=== PATIENT | male | born 1960 ===

== ENCOUNTER 2016-05-31 15:13 | Emergency (ER) | payer SELFPAY ==
[2016-05-31 15:13] VITALS: BMI 32.4
[2016-05-31 15:30] VITALS: RESP 20; TEMP 98.6; O2SAT 99
[2016-05-31 17:07] LABS: BASO # 0.1 K/uL (0.0-0.2); BASO % 0.5 % (0.0-2.0); EOS % 0.5 % (0.0-4.0); LYMPH # 3.2 K/uL (1.0-4.3); LYMPH % 35.1 % (20.0-40.0); MEAN CORPUSCULAR HEMOGLOBIN 37.4 pg (27.0-31.0); MEAN CORPUSCULAR HGB CONC 32.8 g/dL (33.0-37.0); MEAN PLATELET VOLUME 8.1 fL (7.2-11.7); MONO # 0.6 K/uL (0.0-0.8); MONO % 6.6 % (0.0-10.0); RED CELL DISTRIBUTION WIDTH 14.6 % (11.5-14.5); WHITE BLOOD COUNT 9.3 K/uL (4.8-10.8)
[2016-05-31 17:19] LABS: CHLORIDE 95 mmol/L (98-107); POTASSIUM 4.5 mmol/L (3.6-5.2); SODIUM 139 mmol/L (132-148)
[2016-05-31 17:22] LABS: BLOOD UREA NITROGEN 19 mg/dL (9-20); CARBON DIOXIDE 26 mmol/L (22-30); GFR AFRICAN-AMERICAN > 60; GLUCOSE,RANDOM 92 mg/dL (75-110)
[2016-05-31 17:22] LABS: VENOUS BLOOD GAS BASE EXCESS 0.9 mmol/L (0.0-2.0); VENOUS BLOOD GAS PCO2 51 mmHg (40-60); VENOUS BLOOD PH 7.34 (7.32-7.43)
[2016-05-31 17:23] LABS: CALCIUM 9.3 mg/dl (8.6-10.4)
--- NOTE | 2016-05-31 17:55 | C.PDOC ---
History Of Present Illness 55 y/o male presents to the ED with complains of erythema, warmth and swelling to right 5th digit to foot. Pt has surgical procedure 1 month ago with Surendra pt called office and was told to go to ED for evaluation. Pt has not taken any pain medications or abx. Denies nausea, vomiting, fever, chills, weakness, numbness or any other complaints. PMD Dr Roman, pmhx HIV, compliant with medications, viral load undetectable. Time Seen by Provider: 05/31/16 15:50 Chief Complaint (Nursing): Lower Extremity Problem/Injury History Per: Patient History/Exam Limitations: no limitations Onset/Duration Of Symptoms: Days Current Symptoms Are (Timing): Still Present Severity: Mild Recent travel outside of the [place]: No Past Medical History Reviewed: Historical Data, Nursing Documentation, Vital Signs Vital Signs: Last Vital Signs Temp 98.6 F 05/31/16 15:27 Pulse 68 05/31/16 15:27 Resp 20 05/31/16 15:27 BP 135/89 05/31/16 15:27 Pulse Ox 99 05/31/16 17:59 - Medical History PMH: Arthritis, HIV, HTN, Hypercholesterolemia, Hyperthyroidism, Seizures Family History: States: Unknown Family Hx - Social History Hx Tobacco Use: No Hx Alcohol Use: No Hx Substance Use: No - Immunization History Hx Tetanus Toxoid Vaccination: No Hx Influenza Vaccination: No Hx Pneumococcal Vaccination: No Review Of Systems Except As Marked, All Systems Reviewed And Found Negative. Constitutional: Negative for: Fever, Chills Gastrointestinal: Negative for: Diarrhea Musculoskeletal: Positive for: Other (swelling, warmth, erythema to right 5th digit toe) Neurological: Negative for: Weakness, Numbness Physical Exam - Physical Exam Appears: Non-toxic, No Acute Distress Skin: Warm, Dry, No Rash Head: Atraumatic, Normacephalic Cardiovascular: Rhythm Regular, No Murmur Respiratory: Normal Breath Sounds, No Rales, No Rhonchi, No Wheezing Gastrointestinal/Abdominal: Soft Extremity: Normal ROM, Other (right 5th toe erythematous, swollen; no warmth, no streaking) Pulses: Right Dorsalis Pedis: Normal Neurological/Psych: Oriented x3, Normal Motor, Normal Sensation ED Course And Treatment - Laboratory Results Result Diagrams: 05/31/16 17:04 05/31/16 17:04 O2 Sat by Pulse Oximetry: 99 Progress Note: Pus expressed from small wound adjacent to surgical scar, sent culture to lab. Dicussed case with Dr Roman, pt will follow up with him in 2- 3 days. Discharged on abx. Disposition - Disposition Referrals: Stanislav Roman MD [Staff Provider] - Esthela Agosto DPM [Staff Provider] - Disposition: HOME/ ROUTINE Disposition Time: 18:10 Condition: STABLE Prescriptions: Clindamycin [Cleocin] 300 mg PO TID #21 cap Naproxen [Naprosyn Tab] 375 mg PO BID PRN #15 tab PRN Reason: pain Lactobacillus Combination No.4 [Probiotic] 1 each PO DAILY #7 capsule Instructions: Abscess (ED), Cellulitis (ED) Print Language: QATARI - POA Present On Arrival: None - Clinical Impression Clinical Impression: Abscess, toe, Cellulitis of toe, right - Scribe Statement The provider has reviewed the documentation as recorded by the Katherine Scott Provider Attestation: All medical record entries made by the Katherine were at my direction and personally dictated by me. I have reviewed the chart and agree that the record accurately reflects my personal performance of the history, physical exam, medical decision making, and the department course for this patient. I have also personally directed, reviewed, and agree with the discharge instructions and disposition.
[2016-05-31 18:35] VITALS: BP 130/70; PULSE 74
--- NOTE | 2016-05-31 18:48 | RAD ---
PROCEDURE: Radiographs of the right 5th digit HISTORY: infection, r/o gas vs periosteal elevation COMPARISON: 02/29/2016 TECHNIQUE: AP, lateral and oblique views were obtained. FINDINGS: Bone alignment is normal. There is no evidence of erosion or bone destruction. There is a speck of periarticular calcification lateral to the middle phalanx. There is soft tissue swelling of the 5th digit. There is no evidence of soft tissue emphysema. IMPRESSION: No radiographic evidence for osteomyelitis. Soft tissue swelling may represent cellulitis. No evidence of soft tissue emphysema. If there is a persistent clinical concern, an MRI may be performed for further evaluation.
== END 2016-05-31 18:34 | disposition home or self-care (01) ==
LOC: C.ER 15:13
DX: L02.611 Cutaneous abscess of right foot (principal); L03.031 Cellulitis of right toe; B95.61 Methicillin susceptible Staphylococcus aureus infection as the cause of diseases classified elsewhere

== ENCOUNTER 2016-06-25 08:48 | Emergency (ER) | payer OTHER ==
[2016-06-25 08:54] VITALS: BP 129/84; PULSE 84; RESP 18; TEMP 98.1; O2SAT 96; BMI 33.5
--- NOTE | 2016-06-25 09:12 | C.PDOC ---
History Of Present Illness 56 year old patient, with a past medical history of arthritis, hypertension, HIV , hypercholesterolemia, hyperthyroidism, and seizures, presents to the ED complaining of left 5th toe pain for the past 5 days. Patient states he visited his compensation intern, Dr. Agosto and was given Meloxicam for the pain, but he feels minimal relief. Today, patient notes more redness and swelling to the toe. When he pushed on it, pus drained out. Patient has a prior history of toe cellulitis. He denies fever, trauma/injuries, sensory changes. Time Seen by Provider: 06/25/16 08:59 Chief Complaint (Nursing): Lower Extremity Problem/Injury History Per: Patient History/Exam Limitations: no limitations Onset/Duration Of Symptoms: Days (5), Worse Since (today) Current Symptoms Are (Timing): Still Present Past Medical History Reviewed: Historical Data, Nursing Documentation, Vital Signs Vital Signs: Last Vital Signs Temp 98.1 F 06/25/16 08:52 Pulse 84 06/25/16 08:52 Resp 18 06/25/16 08:52 BP 129/84 06/25/16 08:52 Pulse Ox 96 06/25/16 10:32 - Medical History PMH: Arthritis, HIV, HTN, Hypercholesterolemia, Hyperthyroidism, Seizures Family History: States: No Known Family Hx - Social History Hx Tobacco Use: No Hx Alcohol Use: No Hx Substance Use: No - Immunization History Hx Tetanus Toxoid Vaccination: No Hx Influenza Vaccination: No Hx Pneumococcal Vaccination: No Review Of Systems Except As Marked, All Systems Reviewed And Found Negative. Constitutional: Negative for: Fever Cardiovascular: Negative for: Chest Pain Respiratory: Negative for: Cough, Shortness of Breath Musculoskeletal: Positive for: Foot Pain (left 5th toe pain) Skin: Positive for: Other (redness, swelling, pus) Neurological: Negative for: Weakness, Numbness Physical Exam - Physical Exam Appears: Non-toxic, No Acute Distress, Other (comfortable) Skin: Warm, Dry Head: Normacephalic Oral Mucosa: Moist Neck: Supple Cardiovascular: Rhythm Regular Respiratory: Normal Breath Sounds, No Rales, No Rhonchi, No Wheezing Extremity: Normal ROM, No Calf Tenderness, Capillary Refill (<2 seconds all digits), No Deformity, Other (left 5th digit: (+)0.5 cm circular wound (+) purulent discharge (+)erythema (+)tenderness (-)fluctuance (-)induration ) Pulses: Left Dorsalis Pedis: Normal, Right Dorsalis Pedis: Normal Neurological/Psych: Oriented x3, Normal Sensation Gait: Steady ED Course And Treatment O2 Sat by Pulse Oximetry: 96 (RA) Pulse Ox Interpretation: Normal Progress Note: Patient given IM toradol and PO Clindamycin in the ED. He was given Rxs for same, as well Rx for probiotics. Patient instructed to follow up with PMD in 1-2 days, and understands he should return to ED if symptoms worsen. Reevaluation Time: 09:25 Reassessment Condition: Improved Disposition Counseled Patient/Family Regarding: Diagnosis, Need For Followup, Rx Given - Disposition Referrals: Stanislav Roman MD [Staff Provider] - Esthela Agosto DPM [Staff Provider] - Disposition: HOME/ ROUTINE Disposition Time: 09:25 Condition: STABLE Additional Instructions: SEGUIMIENTO CON PACHECO MDICO EN 1-2 PULIDO USE MEDICAMENTOS SEGN LO DIRIGIDO DEVUELVA A LA MELANIE DE EMERGENCIA SI LOS SNTOMAS EMPEORARAN Prescriptions: Clindamycin [Cleocin] 300 mg PO TID #30 cap Hydrocodone/Acetaminophen [Hydrocodon-Acetaminophen 5-325] 1 each PO Q6 PRN #12 tablet PRN Reason: Pain, Moderate (4-7) Lactobacillus Combination No.4 [Probiotic] 1 each PO DAILY #10 capsule Instructions: Cellulitis (ED) Print Language: NICARAGUAN - POA Present On Arrival: None - Clinical Impression Clinical Impression: Cellulitis, toe - Scribe Statement The provider has reviewed the documentation as recorded by the Scribelke Macedo Provider Attestation: All medical record entries made by the Scribe were at my direction and personally dictated by me. I have reviewed the chart and agree that the record accurately reflects my personal performance of the history, physical exam, medical decision making, and the department course for this patient. I have also personally directed, reviewed, and agree with the discharge instructions and disposition.
== END 2016-06-25 09:24 | disposition home or self-care (01) ==
LOC: C.ER 08:48
DX: L03.116 Cellulitis of left lower limb (principal); E78.00 Pure hypercholesterolemia, unspecified; I10 Essential (primary) hypertension; M19.90 Unspecified osteoarthritis, unspecified site; Z21 Asymptomatic human immunodeficiency virus [HIV] infection status
CPT/HCPCS: 96372; 99284; J1885

== ENCOUNTER 2016-10-26 07:57 | Emergency (ER) | payer SELFPAY ==
[2016-10-26 08:18] VITALS: RESP 20
[2016-10-26] MEDS ORDERED: Penicillin G Benzathine 1.2 Mill Unit/2 ml Syr IM ONE ×2 (08:25→08:39)
--- NOTE | 2016-10-26 08:25 | C.PDOC ---
History Of Present Illness 56 y/o male presents to ED with c/o sore throat, subjective fever, malaise, and chills since yesterday. 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 History of HIV. CD4 1370 as per old record on 10/15/16. Denies any other complaints. Time Seen by Provider: 10/26/16 08:09 Chief Complaint (Nursing): ENT Problem History Per: Patient History/Exam Limitations: no limitations Onset/Duration Of Symptoms: Days (1) Current Symptoms Are (Timing): Still Present Location Of Pain: Throat, Diffuse Myalgias Associated Symptoms: Fever, Chills, Sore Throat, Myalgias. denies: Cough, Neck Pain, Vomiting, Diarrhea Ear Symptoms: Bilateral: None Recent travel outside of the [place]: No Past Medical History Reviewed: Historical Data, Nursing Documentation, Vital Signs Vital Signs: Last Vital Signs Temp 98.3 F 10/26/16 08:02 Pulse 96 H 10/26/16 08:02 Resp 20 10/26/16 08:02 BP 103/65 10/26/16 08:02 Pulse Ox 98 10/26/16 08:37 - Medical History PMH: Arthritis, HIV, HTN, Hypercholesterolemia, Hyperthyroidism, Seizures Family History: States: Unknown Family Hx - Social History Hx Tobacco Use: No Hx Alcohol Use: No Hx Substance Use: No - Immunization History Hx Tetanus Toxoid Vaccination: No Hx Influenza Vaccination: No Hx Pneumococcal Vaccination: No Review Of Systems Except As Marked, All Systems Reviewed And Found Negative. Constitutional: Positive for: Fever (subjective), Chills, Malaise ENT: Positive for: Throat Pain Cardiovascular: Negative for: Chest Pain Respiratory: Negative for: Cough, Shortness of Breath, Wheezing Gastrointestinal: Negative for: Nausea, Vomiting, Abdominal Pain Skin: Negative for: Rash Neurological: Negative for: Headache, Dizziness Physical Exam - Physical Exam Appears: Non-toxic, No Acute Distress, Other (no acute respiratory distress) Skin: Warm, Dry Head: Atraumatic, Normacephalic Eye(s): bilateral: Normal Inspection, PERRL, EOMI Ear(s): Bilateral: Normal Nose: Normal Oral Mucosa: Moist Throat: Other (bilateral pharyngitis with exudates, uvula midline, no drooling) Neck: Supple Lymphatic: Adenopathy (L > R submandibular nodes, no tenderness, mobile) Chest: Symmetrical Cardiovascular: Rhythm Regular Respiratory: Normal Breath Sounds, No Accessory Muscle Use, No Rales, No Rhonchi , No Wheezing Gastrointestinal/Abdominal: Soft, No Tenderness Back: Normal Inspection Extremity: Normal ROM, Capillary Refill (< 2 sec.) Neurological/Psych: Oriented x3, Normal Speech, Normal Cognition ED Course And Treatment O2 Sat by Pulse Oximetry: 98 Progress - Re-Evaluation Re-evaluation Note: 10/26/16 08:26 Tylenol, Decadron, Penicillin IM 10/26/16 09:52 FEELS BETTER Disposition Counseled Patient/Family Regarding: Studies Performed, Diagnosis, Need For Followup - Disposition Referrals: YOUR,PMD [Other] Disposition: HOME/ ROUTINE Disposition Time: 09:52 Condition: IMPROVED Instructions: Pharyngitis (ED) Forms: [facility] (Tamazight) - Clinical Impression Clinical Impression: Pharyngitis - Scribe Statement The provider has reviewed the documentation as recorded by the Scribe SM All medical record entries made by the Scribe were at my direction and personally dictated by me. I have reviewed the chart and agree that the record accurately reflects my personal performance of the history, physical exam, medical decision making, and the department course for this patient. I have also personally directed, reviewed, and agree with the discharge instructions and disposition.
[2016-10-26] MEDS ORDERED: Dexamethasone 4 mg/1 ml ONE (08:39)
[2016-10-26 10:04] VITALS: BP 101/65; PULSE 82; TEMP 98.6; O2SAT 97
== END 2016-10-26 10:12 | disposition home or self-care (01) ==
LOC: C.ER 07:57
DX: J02.9 Acute pharyngitis, unspecified (principal)
CPT/HCPCS: 96372; 99284; J0561; J8540

== ENCOUNTER 2017-03-17 14:36 | Emergency (ER) | payer MEDICAID, SELFPAY ==
[2017-03-17 14:47] VITALS: BMI 31.8
[2017-03-17 14:50] VITALS: BP 143/81; PULSE 79; RESP 18; TEMP 98; O2SAT 97
--- NOTE | 2017-03-17 15:20 | C.PDOC ---
History Of Present Illness Pt c/o right ear pain. He states that some water got in his right ear when he was showering. Time Seen by Provider: 03/17/17 14:54 Chief Complaint (Nursing): ENT Problem History Per: Patient Onset/Duration Of Symptoms: Days (about 1-2 weeks) Current Symptoms Are (Timing): Still Present Quality (Ear): Pain W/Touch Severity: Moderate Past Medical History Reviewed: Historical Data, Nursing Documentation, Vital Signs Vital Signs: Last Vital Signs Temp 98 F 03/17/17 14:47 Pulse 79 03/17/17 14:47 Resp 18 03/17/17 14:47 BP 143/81 03/17/17 14:47 Pulse Ox 97 03/17/17 14:47 - Medical History PMH: Arthritis, HIV, HTN, Hypercholesterolemia, Hyperthyroidism, Seizures Family History: States: Unknown Family Hx - Social History Hx Tobacco Use: No Hx Alcohol Use: No Hx Substance Use: No - Immunization History Hx Tetanus Toxoid Vaccination: No Hx Influenza Vaccination: No Hx Pneumococcal Vaccination: No Review Of Systems Except As Marked, All Systems Reviewed And Found Negative. Constitutional: Negative for: Fever, Weakness ENT: Positive for: Ear Pain (right). Negative for: Ear Discharge Cardiovascular: Negative for: Chest Pain Respiratory: Negative for: Cough, Shortness of Breath Gastrointestinal: Negative for: Vomiting, Abdominal Pain Musculoskeletal: Negative for: Neck Pain Skin: Negative for: Rash Neurological: Negative for: Weakness, Numbness, Seizures, Altered Mental Status , Headache Physical Exam - Physical Exam Appears: Non-toxic, No Acute Distress Skin: Normal Color, Warm, Dry, No Rash Head: Atraumatic, Normacephalic Eye(s): bilateral: Normal Inspection, PERRL, EOMI Ear(s): Left: Normal, Right: Other (Ear canal slightly erythematous. Pain on moving earlobe. ) Neck: Normal ROM, Supple Lymphatic: No Adenopathy Extremity: Normal ROM Neurological/Psych: Oriented x3, Normal Motor, Normal Sensation ED Course And Treatment O2 Sat by Pulse Oximetry: 97 Pulse Ox Interpretation: Normal Disposition Counseled Patient/Family Regarding: Diagnosis, Need For Followup, Rx Given - Disposition Referrals: Stanislav Roman MD [Staff Provider] - Disposition: HOME/ ROUTINE Disposition Time: 15:23 Condition: STABLE Additional Instructions: Follow up with your doctor within 1 week. Return to the ER if you develop fever , worsening of symptoms or if you have any other concerns. Prescriptions: Neomycin/Polymyxin/Hydrocort [Cortisporin Otic Soln] 4 drop AU QID #1 bottle Instructions: Otitis Externa (ED) Forms: [facility] (Ivorian) Print Language: SCOTTISH - Clinical Impression Clinical Impression: Right otitis externa
== END 2017-03-17 15:34 | disposition home or self-care (01) ==
LOC: C.ER 14:36
DX: H60.91 Unspecified otitis externa, right ear (principal)

== ENCOUNTER 2017-04-06 12:55 | Emergency (ER) | payer MEDICAID ==
[2017-04-06 13:07] VITALS: BMI 29.8
[2017-04-06 13:08] VITALS: BP 107/73; PULSE 77; RESP 20; TEMP 98.4; O2SAT 99
--- NOTE | 2017-04-06 13:21 | C.PDOC ---
Time Seen by Provider: 04/06/17 13:11 Chief Complaint (Nursing): Abnormal Skin Integrity Past Medical History Vital Signs: Last Vital Signs Temp 98.4 F 04/06/17 13:08 Pulse 77 04/06/17 13:08 Resp 20 04/06/17 13:08 BP 107/73 04/06/17 13:08 Pulse Ox 99 04/06/17 13:22 - Medical History PMH: Arthritis, HIV, HTN, Hypercholesterolemia, Hyperthyroidism, Seizures Family History: States: Unknown Family Hx - Social History Hx Tobacco Use: No Hx Alcohol Use: No Hx Substance Use: No - Immunization History Hx Tetanus Toxoid Vaccination: No Hx Influenza Vaccination: No Hx Pneumococcal Vaccination: No ED Course And Treatment O2 Sat by Pulse Oximetry: 99 Disposition Counseled Patient/Family Regarding: Need For Followup - Disposition Referrals: Stanislav Thomas MD [Staff Provider] - Disposition: HOME/ ROUTINE Disposition Time: 13:19 Condition: STABLE Additional Instructions: Please call Dr. thomas's office in the morning. Forms: Gen Discharge Inst Hungarian, [facility] (Hungarian) - POA Present On Arrival: None - Clinical Impression Clinical Impression: Skin lesion
== END 2017-04-06 13:31 | disposition home or self-care (01) ==
LOC: C.ER 12:55
DX: L98.8 Other specified disorders of the skin and subcutaneous tissue (principal); I10 Essential (primary) hypertension; E78.00 Pure hypercholesterolemia, unspecified; E05.90 Thyrotoxicosis, unspecified without thyrotoxic crisis or storm

== ENCOUNTER 2017-06-01 18:04 | Emergency (ER) | payer SELFPAY ==
[2017-06-01 18:05] VITALS: BMI 29.8
[2017-06-01] MEDS ORDERED: Sodium Chloride 0.9% 1,000 ML IV ONE (19:51)
--- NOTE | 2017-06-01 19:58 | C.PDOC ---
History Of Present Illness 57yo male with history of HIV and hypertension, compliant with all medications, presents to the ED with complaints of 1 week of bodyaches, fever, chills, sore throat and non-propductive cough. Patient denies any associated shortness of breath or chest pain. He has no other medical complaints. Chief Complaint (Nursing): Cough, Cold, Congestion History Per: Patient History/Exam Limitations: no limitations Onset/Duration Of Symptoms: Days Current Symptoms Are (Timing): Still Present Associated Symptoms: Fever, Chills, Sore Throat, Myalgias Additional History Per: Patient Past Medical History Reviewed: Historical Data, Nursing Documentation, Vital Signs Vital Signs: Last Vital Signs Temp 99.6 F 06/01/17 21:42 Pulse 88 06/01/17 21:42 Resp 20 06/01/17 21:42 BP 126/75 06/01/17 21:42 Pulse Ox 98 06/01/17 21:42 - Medical History PMH: Arthritis, Benign Prostatic Hyperplasia, HIV, HTN, Hypercholesterolemia, Hyperthyroidism, Seizures Surgical History: No Surg Hx Family History: States: Unknown Family Hx - Social History Hx Tobacco Use: No Hx Alcohol Use: No Hx Substance Use: No - Immunization History Hx Tetanus Toxoid Vaccination: No Hx Influenza Vaccination: No Hx Pneumococcal Vaccination: No Review Of Systems Except As Marked, All Systems Reviewed And Found Negative. Constitutional: Positive for: Fever, Chills, Malaise (myalgias) ENT: Positive for: Throat Pain Cardiovascular: Negative for: Chest Pain Respiratory: Positive for: Cough. Negative for: Shortness of Breath Physical Exam - Physical Exam Appears: Non-toxic, No Acute Distress Skin: Normal Color, Warm, Dry Head: Atraumatic, Normacephalic Eye(s): bilateral: Normal Inspection, PERRL, EOMI Oral Mucosa: Moist Throat: Erythema, No Exudate Neck: Normal ROM, Supple Lymphatic: Adenopathy (bilateral submandibular) Chest: Symmetrical Cardiovascular: Rhythm Regular Respiratory: Normal Breath Sounds, No Wheezing Gastrointestinal/Abdominal: Normal Exam, Soft, No Tenderness Extremity: Normal ROM, Other (diffuse myalgias; no clubbing, cyanosis peripherally) Pulses: Left Dorsalis Pedis: Normal, Right Dorsalis Pedis: Normal Neurological/Psych: Oriented x3, Normal Speech, Normal Cognition ED Course And Treatment - Laboratory Results Result Diagrams: 06/01/17 20:04 03/22/18 20:04 O2 Sat by Pulse Oximetry: 97 (RA) Pulse Ox Interpretation: Normal - Radiology CXR: Interpreted by Me CXR Interpretation: Yes: No Acute Disease Medical Decision Making Medical Decision Making: Impression: Viral illness Plan: -- IV Fluids -- Toradol 30mg IV -- CXR -- Rapid strep -- Rapid flu -- Labs Time: 2131 Labs reviewed and within normal limits. Serology reports reviewed and are negative. Stable for discharge home. Disposition - Disposition Referrals: [facility] [Outside] Disposition: HOME/ ROUTINE Disposition Time: 01:37 Condition: GOOD Prescriptions: Hydrocodone/Acetaminophen [Lortab 10 mg-300 mg/15 ml Elxr] 15 ml PO QID PRN # 150 ml PRN Reason: Pain, Mild (1-3) Instructions: Upper Respiratory Infection (ED) Forms: [employer] (Uzbek) Print Language: AMHARIC - Clinical Impression Clinical Impression: Influenza-like illness - Scribe Statement The provider has reviewed the documentation as recorded by the Scribe (Maude Cuevas) Provider Attestation: All medical record entries made by the Scribe were at my direction and personally dictated by me. I have reviewed the chart and agree that the record accurately reflects my personal performance of the history, physical exam, medical decision making, and the department course for this patient. I have also personally directed, reviewed, and agree with the discharge instructions and disposition.
[2017-06-01] MEDS ORDERED: Sodium Chloride 0.9% 1,000 ML ONE (20:05)
[2017-06-01 20:11] LABS: BASO % 0.3 % (0.0-2.0); EOS # 0.1 K/uL (0.0-0.7); HEMOGLOBIN 12.5 g/dL (12.0-18.0); LYMPH # 1.2 K/uL (1.0-4.3); LYMPH % 22.6 % (20.0-40.0); MEAN CORPUSCULAR HEMOGLOBIN 37.9 pg (27.0-31.0); MEAN CORPUSCULAR HGB CONC 34.5 g/dL (33.0-37.0); MEAN PLATELET VOLUME 8.6 fL (7.2-11.7); MONO # 0.4 K/uL (0.0-0.8); MONO % 8.1 % (0.0-10.0); NEUT # 3.5 K/uL (1.8-7.0); RBC 3.3 Mil/uL (4.40-5.90); RED CELL DISTRIBUTION WIDTH 13.8 % (11.5-14.5); WHITE BLOOD COUNT 5.2 K/uL (4.8-10.8)
[2017-06-01 20:14] LABS: MEAN CELL VOLUME 109.9 fL (80.0-94.0)
[2017-06-01 20:23] LABS: ALB/GLOB RATIO 1.2 (1.0-2.1); ALBUMIN 4.2 g/dL (3.5-5.0); ALT/SGPT 37 U/L (21-72); AST/SGOT 35 U/L (17-59); BLOOD UREA NITROGEN 14 mg/dL (9-20); CALCIUM 8.7 mg/dl (8.6-10.4); GFR AFRICAN-AMERICAN > 60; GFR NON-AFRICAN AMERICAN > 60
[2017-06-01 21:42] VITALS: BP 126/75; PULSE 88; RESP 20; TEMP 99.6
[2017-06-02 01:38] VITALS: O2SAT 97
== END 2017-06-01 21:42 | disposition home or self-care (01) ==
LOC: C.ER 18:04
DX: J11.1 Influenza due to unidentified influenza virus with other respiratory manifestations (principal)
CPT/HCPCS: 71046; 80053; 85025; 87070; 87430; 87804; 96361; 96374; 99284; J1885; J7040

== ENCOUNTER 2017-06-04 13:53 | Inpatient (IN) | payer OTHER, SELFPAY ==
[2017-06-04 13:53] VITALS: BMI 29.8
[2017-06-04] MEDS ORDERED: Sodium Chloride 0.9% 1,000 ML IV ONE (14:40)
[2017-06-04 15:06] LABS: BASO # 0.1 K/uL (0.0-0.2); BASO % 0.6 % (0.0-2.0); EOS # 0.2 K/uL (0.0-0.7); EOS % 1.7 % (0.0-4.0); HEMOGLOBIN 13.8 g/dL (12.0-18.0); LYMPH # 1.7 K/uL (1.0-4.3); LYMPH % 18.4 % (20.0-40.0); MEAN CORPUSCULAR HEMOGLOBIN 38.1 pg (27.0-31.0); MEAN CORPUSCULAR HGB CONC 34.6 g/dL (33.0-37.0); MEAN PLATELET VOLUME 9.2 fL (7.2-11.7); MONO # 0.5 K/uL (0.0-0.8); MONO % 5.8 % (0.0-10.0); NEUT # 6.7 K/uL (1.8-7.0); NEUT % 73.5 % (50.0-75.0); RBC 3.62 Mil/uL (4.40-5.90); RED CELL DISTRIBUTION WIDTH 13.4 % (11.5-14.5); WHITE BLOOD COUNT 9.1 K/uL (4.8-10.8)
--- NOTE | 2017-06-04 15:18 | C.PDOC ---
History Of Present Illness 57 year old male presents to the emergency room with complaints of body aches, fever, chills, chest pain, back pain, shortness of breath, and a non-productive cough. Patient reports that he is HIV-positive, and that his symptoms have persisted for the past month. Patient had similar presentation in the emergency room on June 01, 2017. At that time, he had labs done along with a chest x-ray done. He reports that his flu test resulted negative, and he was discharged home with a diagnosis of upper respiratory infection; prescribed Lortab for his cough. Patient reports that he was unable to fill his prescription due to the fact that no pharmacy carried the medicine. Due to this, symptoms persisted and he feels they are worsening. Time Seen by Provider: 06/04/17 14:20 Chief Complaint (Nursing): Flu-like Symptoms History Per: Patient History/Exam Limitations: no limitations Onset/Duration Of Symptoms: Days (month) Current Symptoms Are (Timing): Worse Associated Symptoms: Fever (subjective, doesn't take his temperature), Chills, Cough (non-productive) Past Medical History Reviewed: Historical Data, Nursing Documentation, Vital Signs Vital Signs: Last Vital Signs Temp 101.0 F H 06/04/17 16:25 Pulse 93 H 06/04/17 16:08 Resp 20 06/04/17 16:08 BP 149/79 06/04/17 16:08 Pulse Ox 96 06/04/17 17:44 - Medical History PMH: Arthritis, Benign Prostatic Hyperplasia, HIV, HTN, Hypercholesterolemia, Hyperthyroidism, Seizures Surgical History: No Surg Hx Family History: States: No Known Family Hx - Social History Hx Tobacco Use: No Hx Alcohol Use: No Hx Substance Use: No - Immunization History Hx Tetanus Toxoid Vaccination: No Hx Influenza Vaccination: No Hx Pneumococcal Vaccination: No Review Of Systems Except As Marked, All Systems Reviewed And Found Negative. Constitutional: Positive for: Fever (subjective, doesn't take his temperature), Chills Cardiovascular: Positive for: Chest Pain Respiratory: Positive for: Cough (non-productive), Shortness of Breath Musculoskeletal: Positive for: Back Pain, Other (body aches) Physical Exam - Physical Exam Appears: Well, Non-toxic Skin: Normal Color Head: Atraumatic, Normacephalic Eye(s): bilateral: Normal Inspection Ear(s): Bilateral: Normal Nose: Normal Oral Mucosa: Moist Neck: Normal Lymphatic: No Adenopathy Chest: Symmetrical Cardiovascular: Rhythm Regular, Other Respiratory: Normal Breath Sounds Gastrointestinal/Abdominal: Normal Exam Back: Normal Inspection Extremity: Normal ROM Neurological/Psych: Oriented x3, Normal Speech, Normal Cognition ED Course And Treatment - Laboratory Results Result Diagrams: 06/04/17 15:02 06/04/17 15:48 Lab Interpretation: No Acute Changes O2 Sat by Pulse Oximetry: 96 Pulse Ox Interpretation: Normal - Radiology CXR: Interpreted by Me CXR Interpretation: Yes: No Acute Disease Progress Note: 4:00 Patient developed fever to 101. Treated with Tylenol. Reevaluation Time: 17:43 Reassessment Condition: Unchanged (Patient still uncomfortable but is hungy and is requesting a sandwich and gingerale.) - Physician Consult Information Time Consulting Physician Contacted: 17:44 Physician Contacted: Stanislav Roman Outcome Of Conversation: He knows the patient well. States he was started on INH 3 weeks ago for latent TB. He advises admission for infectious disease evaluation. Medical Decision Making Medical Decision Making: Plan: * CMP * CBC * CXR Two-Views * IV Fluids * Toradol 30mg IVP * Urinalysis Impression CXR: No active pulmonary disease. Disposition - Disposition Disposition: HOSPITALIZED Disposition Time: 18:17 Condition: FAIR - POA Present On Arrival: None - Clinical Impression Clinical Impression: Influenza-like illness, Fever, HIV disease, Latent tuberculosis - Scribe Statement The provider has reviewed the documentation as recorded by the Scribe (Abhishek Cooper) Provider Attestation: All medical record entries made by the Scribe were at my direction and personally dictated by me. I have reviewed the chart and agree that the record accurately reflects my personal performance of the history, physical exam, medical decision making, and the department course for this patient. I have also personally directed, reviewed, and agree with the discharge instructions and disposition.
[2017-06-04 15:22] LABS: URINE BILIRUBIN 1+ (NEGATIVE); URINE BLOOD NEGATIVE (NEGATIVE); URINE CLARITY Hazy (Clear); URINE COLOR Amber (YELLOW); URINE GLUCOSE (UA) NORMAL (Normal); URINE LEUKOCYTE ESTERASE NEG Leu/uL (Negative); URINE PROTEIN NEGATIVE (NEGATIVE)
--- NOTE | 2017-06-04 16:22 | RAD ---
HISTORY: COMPARISON: 06/01/2017. TECHNIQUE: Chest PA and lateral FINDINGS: LINES AND TUBES: None. LUNG AND PLEURA: The lungs are well inflated and clear. HEART AND MEDIASTINUM: The heart is not enlarged. The hilar and mediastinal contours are within normal limits. SKELETAL STRUCTURES: The bony structures are within normal limits for the patient's age. VISUALIZED UPPER ABDOMEN: Normal. OTHER FINDINGS: None. IMPRESSION: No active pulmonary disease.
[2017-06-04 16:26] LABS: ALB/GLOB RATIO 1.1 (1.0-2.1); ALBUMIN 4.1 g/dL (3.5-5.0); ALT/SGPT 30 U/L (21-72); AST/SGOT 39 U/L (17-59); BLOOD UREA NITROGEN 21 mg/dL (9-20); GFR AFRICAN-AMERICAN > 60; GFR NON-AFRICAN AMERICAN > 60
--- NOTE | 2017-06-04 20:04 | CP.PCM.HP ---
Addendum entered and electronically signed by Kim Puckett 06/05/17 01:32 : 1.) Fever of unknown Origin - Contact Isolation - f/u mycobateria sputum culture - Chest X-ray: no active pulmonary disease - f/u Chest CT with contrast - Abd/Pelvic CT with IV contrast: Limited evaluation of the lung bases. Evaluation limited by respiratory motion artifact. Hazy patchy opacity in the left lower lung field. Partial visualization of minimal opacity in the right middle lobe. Pleural-based mass like focus measuring up to 2 cm, may represent scarring but cannot exclude true nodule. Appearance concerning for pneumonic infiltrate. Correlate clinically. Followup evaluation with dedicated imaging recommended. - f/u influenza - Tylenol 650mg q6 prn for fever 2.) Productive Cough possibly secondary to influenza vs. TB vs. auto-immune vs. medication induced Pulm Consult: Dr. Borrero --> help appreciated - Chest X-ray: no active pulmonary disease - f/u Chest CT with contrast - f/u influenza - Contact Isolation - f/u mycobateria sputum culture 3.) Quantiferon Gold + ID Consult: Dr. Roman --> help appreciated - Continue INH 300mg daily (started on May 25) - f/u anti-histone ab - Contact Isolation - f/u mycobateria sputum culture 4.) New onset Back pain Rheumatolgist consult: Dr. Hightower --> help appreciated - Rheumatoid Factor + - f/u Chest/Abd/Pelvix CT with IV contrast - Toradol 30mg IV once - f/u ESR 5.) Elevated MCV - possibly secondary to HIV medication - f/u B12 6.) History of HIV ID Consult: Dr. Roman --> help appreciated - CD 4 (03/18/17): 1502 - Continue Viramune 200mg PO BID - Continue Trizivir 1 tablet BID - f/u Vitamin B12 7.) History of BPH - Continue Flomax .4mg po daily - Pharmacy does not carry Dutasteride 8.) History of HTN - Confirm with patient's pharmacy dosage of Enalapril 9.) History of Hypothyroid - Confirm with patient's pharmacy Synthroid - TSH (03/18/17): 5.06 10.) Prophylaxis - SCDs - Pepcid 20mg po daily Case discussed with Dr. Lucas Puckett PGY-1 Original Note: <Kim Puckett - Last Filed: 06/04/17 21:47> History of Present Illness - History of Present Illness History of Present Illness: CC:"My back hurts" HPI: 57 year old male with past medical history of HIV, HTN, Arthritis, Hypothyroism, BPH, HLD, and Aneurysm presents to the ER for back pain and cough. Patient states he has chronic body pain for many years but the back pain is new which started about 4-5 weeks ago. He states the pain is constant, feels like a burning pain, 10/10. The pain is made worse by laying down and nothing has made the pain better. He states the pain is more located where is lungs are but it also is located in his lower back. He states the cough started about 4-5 weeks ago and he has phlegm which is white to a green color. He states he has not been able to take his temperature at home but feels like he has a fever for the last few weeks. He denies blood in his sputum. Patient denies sick contacts or leaving the country. Patient was recently started on INH due to a +quantiferon test after he also tested +for Rheumatoid factor. Patient also states he was recently at the ER and was discharged with Lortab for his back pain however he was not able to fill the prescription at any pharmacy as they told him they do not carry the medications. Patient denies nausea, vomiting, diarrhea, constipation, chest pain or shortness of breath. PMD: Dr. Roman Foreign Service Teacher: Dr. Hightower Past Medical History: HIV (diagnosed in 1999), HTN, Arthritis, Hypothyroid, BPH , HLD, Aneurysm (2004) Past Surgical History: Brain clip placed in 2004 at [facility] in [place], [place] Family History: Mom living age 84- stroke and diabetes; father passed at the age of 65 due to stroke, Maternal Aunt: Heart Disease Medications: Confirm with [facility]: Flomax .4mg po daily; Etodolac 400mg bid; Dutasteride 0.mg daily; Enalapril and Synthroid; per Dr. Roman: INH 300mg daily (Started May 25); Trizivir 1 tablet bid; Viramune 200mg bid Allergies: NKDA Social History: Lives alone, previously worked in a [employer], denies smoking, alcohol or illicit drug use Present on Admission - Present on Admission Any Indicators Present on Admission: No History of DVT/PE: No Review of Systems - Constitutional Constitutional: Chills, Fever, Headache. absent: Night Sweats - EENT Eyes: absent: Blurred Vision Nose/Mouth/Throat: Nasal Discharge. absent: Hoarsness, Sore Throat - Cardiovascular Cardiovascular: absent: Chest Pain, Dyspnea, Leg Edema, Lightheadedness, Palpitations - Respiratory Respiratory: Cough, Change in Mucous Color. absent: Dyspnea, Hemoptysis, Wheezing - Gastrointestinal Gastrointestinal: absent: Abdominal Pain, Constipation, Diarrhea, Nausea, Vomiting - Genitourinary Genitourinary: absent: Dysuria - Musculoskeletal Musculoskeletal: Arthralgias, Back Pain. absent: Numbness - Neurological Neurological: Headaches. absent: Dizziness, Numbness - Endocrine Endocrine: absent: Palpitations Past Patient History - Infectious Disease Hx of Infectious Diseases: None - Past Medical History & Family History Past Medical History?: Yes - Past Social History Smoking Status: Never Smoked - CARDIAC Hx Hypercholesterolemia: Yes Hx Hypertension: Yes - PULMONARY Hx Respiratory Disorders: No - NEUROLOGICAL Hx Seizures: Yes - HEENT Hx HEENT Problems: No - ENDOCRINE/METABOLIC Hx Hyperthyroidism: Yes - HEMATOLOGICAL/ONCOLOGICAL Hx Human Immunodeficiency Virus (HIV): Yes - INTEGUMENTARY Hx Dermatological Problems: No - MUSCULOSKELETAL/RHEUMATOLOGICAL Hx Arthritis: Yes - GASTROINTESTINAL Hx Gastrointestinal Disorders: No - GENITOURINARY/GYNECOLOGICAL Hx Genitourinary Disorders: Yes - PSYCHIATRIC Hx Substance Use: No - SURGICAL HISTORY Hx Surgeries: Yes Other/Comment: excision abscess right hip. h/o cerebral aneurysm 12 years ago/ surgery - ANESTHESIA Hx Anesthesia: Yes Hx Anesthesia Reactions: No Hx Malignant Hyperthermia: No Meds Allergies/Adverse Reactions: Allergies Allergy/AdvReac Type Severity Reaction Status Date / Time No Known Allergies Allergy Verified 04/06/17 13:06 Physical Exam - Constitutional Appears: No Acute Distress - Head Exam Head Exam: ATRAUMATIC, NORMAL INSPECTION - Eye Exam Eye Exam: EOMI, Normal appearance - ENT Exam ENT Exam: Mucous Membranes Moist - Respiratory Exam Respiratory Exam: Clear to Auscultation Bilateral, NORMAL BREATHING PATTERN. absent: Rales, Rhonchi, Wheezes, Stridor - Cardiovascular Exam Cardiovascular Exam: REGULAR RHYTHM, RRR, +S1, +S2. absent: JVD - GI/Abdominal Exam GI & Abdominal Exam: Normal Bowel Sounds, Soft. absent: Guarding, Tenderness - Extremities Exam Extremities exam: Positive for: pedal pulses present. Negative for: joint swelling, normal inspection, pedal edema, tenderness Additional comments: Bilateral hands DIP and PIP joints are swollen. Bilateral knee, shoulder, elbow joints are tender to palpation upper and lower bilateral extremities muscle strength 5/5 - Back Exam Back exam: tenderness (thoracic (T8-T12) tenderness in the spinal area; Lumbar tenderness - spinal ) - Neurological Exam Neurological exam: Alert, Oriented x3 - Psychiatric Exam Psychiatric exam: Normal Affect, Normal Mood - Skin Skin Exam: Dry, Intact, Normal Color Results - Vital Signs Recent Vital Signs: Last Vital Signs Temp 100.3 F H 06/04/17 19:26 Pulse 97 H 06/04/17 19:26 Resp 20 06/04/17 19:26 BP 134/77 06/04/17 19:26 Pulse Ox 98 06/04/17 19:26 - Labs Result Diagrams: 06/04/17 15:02 06/04/17 15:48 Labs: Laboratory Results - last 24 hr 06/04/17 06/04/17 06/04/17 15:02 15:11 15:48 WBC 9.1 D RBC 3.62 L Hgb 13.8 Hct 39.8 MCV 110.0 H MCH 38.1 H MCHC 34.6 RDW 13.4 Plt Count 193 MPV 9.2 Neut % (Auto) 73.5 Lymph % (Auto) 18.4 L Frederick % (Auto) 5.8 Eos % (Auto) 1.7 Baso % (Auto) 0.6 Neut # (Auto) 6.7 Lymph # (Auto) 1.7 Frederick # (Auto) 0.5 Eos # (Auto) 0.2 Baso # (Auto) 0.1 Sodium 141 Potassium 3.8 Chloride 106 Carbon Dioxide 23 Anion Gap 16 BUN 21 H Creatinine 0.5 L Est GFR ( Amer) > 60 Est GFR (Non-Af Amer) > 60 Random Glucose 106 Calcium 9.0 Total Bilirubin 0.5 AST 39 ALT 30 Alkaline Phosphatase 78 Total Protein 7.6 Albumin 4.1 Globulin 3.6 Albumin/Globulin Ratio 1.1 Urine Color Marisol Urine Clarity Hazy Urine pH 5.0 Ur Specific [place] 1.020 Urine Protein Negative Urine Glucose (UA) Normal Urine Ketones Negative Urine Blood Negative Urine Nitrate Negative Urine Bilirubin 1+ H Urine Urobilinogen 4.0 Ur Leukocyte Esterase Neg Urine WBC (Auto) 1 Urine RBC (Auto) 2 Assessment & Plan - Assessment and Plan (Free Text) Assessment: 1.) Fever of unknown Origin - Contact Isolation - f/u mycobateria sputum culture - Chest X-ray: normal - f/u Chest/Abd/Pelvix CT with IV contrast - Tylenol 650mg q6 prn for fever 2.) Quantiferon Gold + ID Consult: Dr. Roman --> help appreciated - Continue INH 300mg daily (started on May 25) - f/u anti-histone ab - Contact Isolation - f/u mycobateria sputum culture 3.) New onset Back pain Rheumatolgist consult: Dr. Hightower --> help appreciated - Rheumatoid Factor + - f/u Chest/Abd/Pelvix CT with IV contrast - Toradol 30mg IV once - f/u ESR 4.) Elevated MCV - possibly secondary to HIV medication - f/u B12 5.) History of HIV ID Consult: Dr. Roman --> help appreciated - CD 4 (03/18/17): 1502 - Continue Viramune 200mg PO BID - Continue Trizivir 1 tablet BID - f/u Vitamin B12 6.) History of BPH - Continue Flomax .4mg po daily - Pharmacy does not carry Dutasteride 7.) History of HTN - Confirm with patient's pharmacy dosage of Enalapril 8.) History of Hypothyroid - Confirm with patient's pharmacy Synthroid - TSH (03/18/17): 5.06 9.) Prophylaxis - SCDs - Pepcid 20mg po daily Case discussed with Dr. Lucas Puckett PGY-1 <Ronald Zavala P - Last Filed: 06/05/17 07:54> Results - Vital Signs Recent Vital Signs: Last Vital Signs Temp 100.6 F H 06/05/17 03:34 Pulse 92 H 06/04/17 23:55 Resp 20 06/04/17 23:55 BP 95/60 L 06/04/17 23:55 Pulse Ox 100 06/04/17 23:55 - Labs Result Diagrams: 06/05/17 06:57 06/05/17 06:57 Labs: Laboratory Results - last 24 hr 06/04/17 06/04/17 06/04/17 15:02 15:11 15:48 WBC 9.1 D RBC 3.62 L Hgb 13.8 Hct 39.8 MCV 110.0 H MCH 38.1 H MCHC 34.6 RDW 13.4 Plt Count 193 MPV 9.2 Neut % (Auto) 73.5 Lymph % (Auto) 18.4 L Frederick % (Auto) 5.8 Eos % (Auto) 1.7 Baso % (Auto) 0.6 Neut # (Auto) 6.7 Lymph # (Auto) 1.7 Frederick # (Auto) 0.5 Eos # (Auto) 0.2 Baso # (Auto) 0.1 Sodium 141 Potassium 3.8 Chloride 106 Carbon Dioxide 23 Anion Gap 16 BUN 21 H Creatinine 0.5 L Est GFR ( Amer) > 60 Est GFR (Non-Af Amer) > 60 Random Glucose 106 Calcium 9.0 Phosphorus Magnesium Total Bilirubin 0.5 AST 39 ALT 30 Alkaline Phosphatase 78 Lactate Dehydrogenase C-Reactive Protein Total Protein 7.6 Albumin 4.1 Globulin 3.6 Albumin/Globulin Ratio 1.1 Free T4 Urine Color Marisol Urine Clarity Hazy Urine pH 5.0 Ur Specific [place] 1.020 Urine Protein Negative Urine Glucose (UA) Normal Urine Ketones Negative Urine Blood Negative Urine Nitrate Negative Urine Bilirubin 1+ H Urine Urobilinogen 4.0 Ur Leukocyte Esterase Neg Urine WBC (Auto) 1 Urine RBC (Auto) 2 06/05/17 06/05/17 06/05/17 06:57 06:57 06:57 WBC 7.4 RBC 3.26 L Hgb 12.4 Hct 35.7 MCV 109.3 H MCH 37.8 H MCHC 34.6 RDW 13.5 Plt Count 174 MPV 9.1 Neut % (Auto) 65.3 Lymph % (Auto) 25.1 Frederick % (Auto) 7.7 Eos % (Auto) 1.5 Baso % (Auto) 0.4 Neut # (Auto) 4.8 Lymph # (Auto) 1.9 Frederick # (Auto) 0.6 Eos # (Auto) 0.1 Baso # (Auto) 0.0 Sodium 142 Potassium 3.6 Chloride 105 Carbon Dioxide 25 Anion Gap 16 BUN 14 Creatinine 0.6 L Est GFR ( Amer) > 60 Est GFR (Non-Af Amer) > 60 Random Glucose 90 Calcium 8.4 L Phosphorus 3.6 Magnesium 2.0 Total Bilirubin 0.5 AST 28 ALT 28 Alkaline Phosphatase 78 Lactate Dehydrogenase 431 C-Reactive Protein 54.80 H Total Protein 7.2 Albumin 3.7 Globulin 3.5 Albumin/Globulin Ratio 1.1 Free T4 0.89 Urine Color Urine Clarity Urine pH Ur Specific [place] Urine Protein Urine Glucose (UA) Urine Ketones Urine Blood Urine Nitrate Urine Bilirubin Urine Urobilinogen Ur Leukocyte Esterase Urine WBC (Auto) Urine RBC (Auto) Attending/Attestation - Attestation I have personally seen and examined this patient.: Yes I have fully participated in the care of the patient.: Yes I have reviewed all pertinent clinical information: Yes Notes (Text): 06/05/17 07:47 Presentation here to hospital due to midthoracic area spine pain, cough, for 4- 6 wks, and fever for atleast 4-5 days, but could be longer as patient was unaware of fever. Rheumatologic stiffness in both arms/hands symmetric for 2-3 hrs in am, RA + on nsaids HIV+ on treatment since 1999, high cd4 count QGold + this month on INH CT abd/pelvis showed basal infiltrate H/o BPH Plan Continue HIV meds INH Isolation resp and sputum afb ordred by ID CT chest with iv contrast, pulm consult for possible bronch, possible biopsy Empiric rocephin and doxycycline strarted NSAIDs for symptoms control CRP, procalcitonin, ESR, B12 levels See orders for detail.
--- NOTE | 2017-06-04 22:55 | CT ---
EXAM: CT Abdomen and Pelvis With Intravenous Contrast CLINICAL HISTORY: 57 years old, male; Pain; Abdominal pain; Additional info: Cough and back pain TECHNIQUE: Axial computed tomography images of the abdomen and pelvis with intravenous contrast. All CT scans at this facility use one or more dose reduction techniques, viz.: automated exposure control; ma/kV adjustment per patient size (including targeted exams where dose is matched to indication; i.e. head); or iterative reconstruction technique. Coronal and sagittal reformatted images were created and reviewed. CONTRAST: 100 mL of [id number] administered intravenously. COMPARISON: No relevant prior studies available. FINDINGS: Lower thorax: Evaluation limited by respiratory motion artifact. Hazy patchy opacity in the left lower lung field. Partial visualization of minimal opacity in the right middle lobe. Pleural-based masslike focus measuring up to 2 cm. ABDOMEN: Liver: Hypoattenuating lesions in the liver measuring up to 15 mm, incompletely characterized on this study. Gallbladder and bile ducts: No acute abnormality as visualized. Pancreas: No acute abnormality as visualized. Spleen: No splenomegaly. Adrenals: No acute abnormality as visualized. Kidneys and ureters: Symmetric emhancement. No hydronephrosis. Stomach and bowel: Limited evaluation without enteric contrast. No obstruction. No definitive focus of acute inflammation. Appendix: No findings to suggest acute appendicitis. PELVIS: Bladder: Not well distended, limiting evaluation. Reproductive: No acute abnormality as visualized. ABDOMEN and PELVIS: Intraperitoneal space: No free air. No significant fluid collection. Bones: Mild degenerative changes. Soft tissues: Fat-containing umbilical hernia. Vasculature: No abdominal aortic aneurysm. Lymph nodes: No acute abnormality as visualized. IMPRESSION: Limited evaluation of the lung bases. Evaluation limited by respiratory motion artifact. Hazy patchy opacity in the left lower lung field. Partial visualization of minimal opacity in the right middle lobe. Pleural-based masslike focus measuring up to 2 cm, may represent scarring but cannot exclude true nodule. Appearance concerning for pneumonic infiltrate. Correlate clinically. Followup evaluation with dedicated imaging recommended. Additional details/findings as above.
[2017-06-04] MEDS: Sodium Chloride 0.9% 1,000 ML IV SCH ×2 (23:18→23:35)
[2017-06-05 07:21] LABS: BASO % 0.4 % (0.0-2.0); EOS # 0.1 K/uL (0.0-0.7); EOS % 1.5 % (0.0-4.0); HEMOGLOBIN 12.4 g/dL (12.0-18.0); LYMPH # 1.9 K/uL (1.0-4.3); LYMPH % 25.1 % (20.0-40.0); MEAN CELL VOLUME 109.3 fL (80.0-94.0); MEAN CORPUSCULAR HEMOGLOBIN 37.8 pg (27.0-31.0); MEAN CORPUSCULAR HGB CONC 34.6 g/dL (33.0-37.0); MEAN PLATELET VOLUME 9.1 fL (7.2-11.7); MONO # 0.6 K/uL (0.0-0.8); MONO % 7.7 % (0.0-10.0); NEUT # 4.8 K/uL (1.8-7.0); NEUT % 65.3 % (50.0-75.0); NRBC % 0.1 % (0.0-2.0); RBC 3.26 Mil/uL (4.40-5.90); RED CELL DISTRIBUTION WIDTH 13.5 % (11.5-14.5); WHITE BLOOD COUNT 7.4 K/uL (4.8-10.8)
[2017-06-05 07:46] LABS: ALB/GLOB RATIO 1.1 (1.0-2.1); ALBUMIN 3.7 g/dL (3.5-5.0); ALT/SGPT 28 U/L (21-72); AST/SGOT 28 U/L (17-59); BLOOD UREA NITROGEN 14 mg/dL (9-20); CALCIUM 8.4 mg/dl (8.6-10.4); GFR AFRICAN-AMERICAN > 60; GFR NON-AFRICAN AMERICAN > 60
[2017-06-05] MEDS: Abacavir/Lamivudine/Zidovudine 300 mg-150mg- 300 mg Tab PO SCH ×2 (09:24→17:56)
[2017-06-05] MEDS: Enoxaparin 40 mg Syringe SC SCH (09:25)
[2017-06-05] MEDS: Sodium Chloride 0.9% 1,000 ML IV SCH ×3 (10:23→19:31)
[2017-06-05] MEDS: cefTRIAXone IV 1 gm in Dextros 50 ML IVPB SCH (10:35)
[2017-06-05] MEDS ORDERED: Iodixanol 320 MG/ML 100 ML BOTTLE IV ONE ×2 (10:45→21:32)
[2017-06-05 11:40] LABS: ALT/SGPT 23 U/L (21-72); AMYLASE 67 U/L (30-110)
--- NOTE | 2017-06-05 12:30 | CP.PCM.CON ---
History of Present Illness - History of Present Illness History of Present Illness: 57 year old male presents to the emergency room with complaints of body aches, fever, chills, chest pain, back pain, shortness of breath, and a non-productive cough. Patient reports that he is HIV-positive, and that his symptoms have persisted for the past month. Patient had similar presentation in the emergency room on June 01, 2017. At that time, he had labs done along with a chest x-ray done. He reports that his flu test resulted negative, and he was discharged home with a diagnosis of upper respiratory infection; prescribed Lortab for his cough. recently started on INH for + TB Quantiferon at that time CXR was negative - Medical History PMH: Arthritis, Benign Prostatic Hyperplasia, HIV, HTN, Hypercholesterolemia, Hyperthyroidism, Seizures Review of Systems - Constitutional Constitutional: As Per HPI - EENT Eyes: absent: As Per HPI, Blind Spots, Blurred Vision, Change in Vision, Decreased Night Vision, Diplopia, Discharge, Dry Eye, Exophthalmos, Floaters, Irritation, Itchy Eyes, Loss of Peripheral Vision, Pain, Photophobia, Requires Corrective Lenses, Sees Flashes, Spots in Vision, Tunnel Vision, Other Visual Disturbances, Loss of Vision, Other Ears: absent: As Per HPI, Decreased Hearing, Ear Discharge, Ear Pain, Tinnitus, Abnormal Hearing, Disequilibrium, Dizziness, Other Nose/Mouth/Throat: absent: As Per HPI, Epistaxis, Nasal Congestion, Nasal Discharge, Nasal Obstruction, Nasal Trauma, Nose Pain, Post Nasal Drip, Sinus Pain, Sinus Pressure, Bleeding Gums, Change in Voice, Dental Pain, Dry Mouth, Dysphagia, Halitosis, Hoarsness, Lip Swelling, Mouth Lesions, Mouth Pain, Odynophagia, Sore Throat, Throat Swelling, Tongue Swelling, Facial Pain, Neck Pain, Neck Mass, Other - Cardiovascular Cardiovascular: absent: As Per HPI, Acrocyanosis, Chest Pain, Chest Pain at Rest , Chest Pain with Activity, Claudication, Diaphoresis, Dyspnea, Dyspnea on Exertion, Edema, Irregular Heart Rhythm, Pain Radiating to Arm/Neck/Jaw, Leg Edema, Leg Ulcers, Lightheadedness, Orthopnea, Palpitations, Paroxysmal Nocturnal Dyspnea, Pedal Edema, Radiating Pain, Rapid Heart Rate, Slow Heart Rate, Syncope, Other - Respiratory Respiratory: As Per HPI - Gastrointestinal Gastrointestinal: absent: As Per HPI, Abdominal Pain, Belching, Bloating, Change in Bowel Habits, Change in Stool Character, Coffee Ground Emesis, Constipation, Cramping, Diarrhea, Dyspepsia, Dysphagia, Early Satiety, Excessive Flatus, Fecal Incontinence, Heartburn, Hematemesis, Hematochezia, Loose Stools, Melena, Nausea, Odynophagia, Temesmus, Vomiting, Other - Genitourinary Genitourinary: absent: As Per HPI, Change in Urinary Stream, Difficulty Urinating, Dysuria, Flank Pain, Hematuria, Pyuria, Nocturia, Urinary Incontinence, Urinary Frequency, Urinary Hesitance, Urinary Urgency, Voiding Freq/Small Amts, Freq UTI, Hx Renal/Bladder Calculi, Hx /Renal Surgery, Bladder Distension, Other - Musculoskeletal Musculoskeletal: As Per HPI - Integumentary Integumentary: absent: As Per HPI, Acne, Alopecia, Bleeding Lesions, Change in Hair, Change in Nails, Change in Pigmentation, Changing Lesions, Dry Skin, Erythema, Furuncle, Hirsutism, Lesions, New Lesions, Non-Healing Lesions, Photosensitivity, Pruritus, Rash, Skin Pain, Skin Ulcer, Sores, Striae, Swelling , Unusual Bruising, Wounds, Jaundice, Other - Neurological Neurological: absent: As Per HPI, Abnormal Gait, Abnormal Hearing, Abnormal Movements, Abnormal Speech, Behavioral Changes, Burning Sensations, Confusion, Convulsions, Disequilibrium, Dizziness, Numbness, Focal Weakness, Frequent Falls , Headaches, Lack of Coordination, Loss of Vision, Memory Loss, Paresthesias, Radicular Pain, Restless Legs, Sensory Deficit, Syncope, Tingling, Tremor, Vertigo, Weakness, Other Visual Disturbances, Other - Psychiatric Psychiatric: absent: As Per HPI, Abnormal Sleep Pattern, Anhedonia, Anxiety, Auditory Hallucinations, Behavioral Changes, Change in Appetite, Change in Libido, Confusion, Depression, Difficulty Concentrating, Hallucinations, Homicidal Ideation, Hopelessness, Irritability, Memory Loss, Mood Swings, Panic Attacks, Paranoia, Suicidal Ideation, Visual Hallucinations, Tactile Hallucinations, Other - Endocrine Endocrine: absent: As Per HPI, Change in Body Appearance, Change in Libido, Cold Intolorance, Deepening of Voice, Excessive Sweating, Fatigue, Flushing, Heat Intolorance, Increase in Ring/Shoe/Hat Size, Palpitations, Polydipsia, Polyphagia, Polyuria, Other - Hematologic/Lymphatic Hematologic: absent: As Per HPI, Easy Bleeding, Easy Bruising, Lymphadenopathy, Other Past Patient History - Infectious Disease Hx of Infectious Diseases: None - Past Medical History & Family History Past Medical History?: Yes - Past Social History Smoking Status: Never Smoked - CARDIAC Hx Hypercholesterolemia: Yes Hx Hypertension: Yes - PULMONARY Hx Respiratory Disorders: No - NEUROLOGICAL Hx Seizures: Yes - HEENT Hx HEENT Problems: No - ENDOCRINE/METABOLIC Hx Hyperthyroidism: Yes - HEMATOLOGICAL/ONCOLOGICAL Hx Human Immunodeficiency Virus (HIV): Yes - INTEGUMENTARY Hx Dermatological Problems: No - MUSCULOSKELETAL/RHEUMATOLOGICAL Hx Arthritis: Yes - GASTROINTESTINAL Hx Gastrointestinal Disorders: No - GENITOURINARY/GYNECOLOGICAL Hx Genitourinary Disorders: Yes - PSYCHIATRIC Hx Substance Use: No - SURGICAL HISTORY Hx Surgeries: Yes Other/Comment: excision abscess right hip. h/o cerebral aneurysm 12 years ago/ surgery - ANESTHESIA Hx Anesthesia: Yes Hx Anesthesia Reactions: No Hx Malignant Hyperthermia: No Meds Allergies/Adverse Reactions: Allergies Allergy/AdvReac Type Severity Reaction Status Date / Time No Known Allergies Allergy Verified 04/06/17 13:06 - Medications Medications: Current Medications Abacavir/Lamivudine/Zidovudine (Trizivir 300 Mg-150 Mg-300 Mg) 1 tab PO BID [facility]ARD PRN Reason: Protocol Last Admin: 06/05/17 09:24 Dose: 1 tab Acetaminophen (Tylenol 325mg Tab) 650 mg PO Q6 PRN PRN Reason: Fever >100.4 F Last Admin: 06/05/17 03:34 Dose: 650 mg Enalapril Maleate (Vasotec) 20 mg PO DAILY [facility] Last Admin: 06/05/17 10:59 Dose: 20 mg Enoxaparin Sodium (Lovenox) 40 mg SC DAILY [facility] Last Admin: 06/05/17 09:25 Dose: 40 mg Famotidine (Pepcid) 20 mg PO BID [facility] Sodium Chloride (Sodium Chloride 0.9%) 1,000 mls @ 100 mls/hr IV .Q10H [facility] Last Admin: 06/05/17 10:23 Dose: Not Given Doxycycline Hyclate 100 mg/ (Sodium Chloride) 100 mls @ 100 mls/hr IVPB Q12H [facility] PRN Reason: Protocol Last Admin: 06/05/17 09:24 Dose: 100 mls/hr Ceftriaxone Sodium (Rocephin Iv 1 Gm Duplex) 50 mls @ 100 mls/hr IVPB DAILY [facility] PRN Reason: Protocol Last Admin: 06/05/17 10:35 Dose: 100 mls/hr Isoniazid (Niazid) 300 mg PO DAILY [facility] PRN Reason: Protocol Last Admin: 06/05/17 09:24 Dose: 300 mg Ketorolac Tromethamine (Toradol) 10 mg PO Q6 PRN PRN Reason: Pain, severe (8-10) Last Admin: 06/05/17 10:53 Dose: 10 mg Levetiracetam (Keppra) 500 mg PO BID [facility] Last Admin: 06/05/17 10:54 Dose: 500 mg Levothyroxine Sodium (Synthroid) 100 mcg PO DAILY@0630 [facility] Nevirapine (Viramune) 200 mg PO BID [facility] PRN Reason: Protocol Last Admin: 06/05/17 09:24 Dose: 200 mg Pneumococcal Polyvalent Vaccine (Pneumovax 23 Vaccine) 0.5 ml IM .ONCE ONE Stop: 06/07/17 10:01 Saccharomyces Boulardii (Florastor) 250 mg PO BID [facility] Tamsulosin HCl (Flomax) 0.4 mg PO DAILY [facility] Last Admin: 06/05/17 09:33 Dose: 0.4 mg Temazepam (Restoril) 30 mg PO [facility] Topiramate (Topamax) 50 mg PO DAILY [facility] Last Admin: 06/05/17 10:54 Dose: 50 mg Physical Exam - Constitutional Appears: Non-toxic, Chronically Ill - Head Exam Head Exam: NORMOCEPHALIC - Eye Exam Eye Exam: absent: Scleral icterus - ENT Exam ENT Exam: Mucous Membranes Dry, Normal External Ear Exam - Neck Exam Neck exam: Negative for: Lymphadenopathy - Respiratory Exam Respiratory Exam: Decreased Breath Sounds, Clear to Auscultation Bilateral - Cardiovascular Exam Cardiovascular Exam: REGULAR RHYTHM, +S1, +S2 - GI/Abdominal Exam GI & Abdominal Exam: Diminished Bowel Sounds, Soft. absent: Tenderness - Rectal Exam Rectal Exam: Deferred - Exam Exam: NORMAL INSPECTION - Extremities Exam Extremities exam: Positive for: pedal pulses present. Negative for: calf tenderness, pedal edema, tenderness - Back Exam Back exam: absent: CVA tenderness (L), CVA tenderness (R) - Neurological Exam Neurological exam: Alert, CN II-XII Intact, Oriented x3, Reflexes Normal - Psychiatric Exam Psychiatric exam: Depressed - Skin Skin Exam: Dry Results - Vital Signs Recent Vital Signs: Last Vital Signs Temp 98.1 F 06/05/17 07:45 Pulse 72 06/05/17 07:45 Resp 20 06/05/17 07:45 BP 128/69 06/05/17 10:59 Pulse Ox 97 06/05/17 07:45 - Labs Result Diagrams: 06/05/17 06:57 06/05/17 06:57 Labs: Laboratory Results - last 24 hr 06/04/17 06/04/17 06/04/17 15:02 15:11 15:48 WBC 9.1 D RBC 3.62 L Hgb 13.8 Hct 39.8 MCV 110.0 H MCH 38.1 H MCHC 34.6 RDW 13.4 Plt Count 193 MPV 9.2 Neut % (Auto) 73.5 Lymph % (Auto) 18.4 L [place] % (Auto) 5.8 Eos % (Auto) 1.7 Baso % (Auto) 0.6 Neut # (Auto) 6.7 Lymph # (Auto) 1.7 [place] # (Auto) 0.5 Eos # (Auto) 0.2 Baso # (Auto) 0.1 ESR Sodium 141 Potassium 3.8 Chloride 106 Carbon Dioxide 23 Anion Gap 16 BUN 21 H Creatinine 0.5 L Est GFR ( Amer) > 60 Est GFR (Non-Af Amer) > 60 Random Glucose 106 Calcium 9.0 Phosphorus Magnesium Total Bilirubin 0.5 AST 39 ALT 30 Alkaline Phosphatase 78 Lactate Dehydrogenase C-Reactive Protein C-React Prot High Sens Total Protein 7.6 Albumin 4.1 Globulin 3.6 Albumin/Globulin Ratio 1.1 Amylase Vitamin B12 Procalcitonin Free T4 TSH 3rd Generation Urine Color Marisol Urine Clarity Hazy Urine pH 5.0 Ur Specific Outlook 1.020 Urine Protein Negative Urine Glucose (UA) Normal Urine Ketones Negative Urine Blood Negative Urine Nitrate Negative Urine Bilirubin 1+ H Urine Urobilinogen 4.0 Ur Leukocyte Esterase Neg Urine WBC (Auto) 1 Urine RBC (Auto) 2 Influenza Typ A,B (EIA) 06/05/17 06/05/17 06/05/17 00:52 06:57 06:57 WBC 7.4 RBC 3.26 L Hgb 12.4 Hct 35.7 MCV 109.3 H MCH 37.8 H MCHC 34.6 RDW 13.5 Plt Count 174 MPV 9.1 Neut % (Auto) 65.3 Lymph % (Auto) 25.1 [place] % (Auto) 7.7 Eos % (Auto) 1.5 Baso % (Auto) 0.4 Neut # (Auto) 4.8 Lymph # (Auto) 1.9 [place] # (Auto) 0.6 Eos # (Auto) 0.1 Baso # (Auto) 0.0 ESR 43 H Sodium 142 Potassium 3.6 Chloride 105 Carbon Dioxide 25 Anion Gap 16 BUN 14 Creatinine 0.6 L Est GFR ( Amer) > 60 Est GFR (Non-Af Amer) > 60 Random Glucose 90 Calcium 8.4 L Phosphorus 3.6 Magnesium 2.0 Total Bilirubin 0.5 AST 28 ALT 28 Alkaline Phosphatase 78 Lactate Dehydrogenase 431 C-Reactive Protein 54.80 H C-React Prot High Sens Total Protein 7.2 Albumin 3.7 Globulin 3.5 Albumin/Globulin Ratio 1.1 Amylase Vitamin B12 366 Procalcitonin Free T4 TSH 3rd Generation 1.13 Urine Color Urine Clarity Urine pH Ur Specific Outlook Urine Protein Urine Glucose (UA) Urine Ketones Urine Blood Urine Nitrate Urine Bilirubin Urine Urobilinogen Ur Leukocyte Esterase Urine WBC (Auto) Urine RBC (Auto) Influenza Typ A,B (EIA) Negative for flu a/b 06/05/17 06/05/17 06/05/17 06:57 08:23 11:14 WBC RBC Hgb Hct MCV MCH MCHC RDW Plt Count MPV Neut % (Auto) Lymph % (Auto) [place] % (Auto) Eos % (Auto) Baso % (Auto) Neut # (Auto) Lymph # (Auto) [place] # (Auto) Eos # (Auto) Baso # (Auto) ESR Sodium Potassium Chloride Carbon Dioxide Anion Gap BUN Creatinine Est GFR ( Amer) Est GFR (Non-Af Amer) Random Glucose Calcium Phosphorus Magnesium Total Bilirubin AST ALT Alkaline Phosphatase Lactate Dehydrogenase C-Reactive Protein C-React Prot High Sens > 15.00 H Total Protein Albumin Globulin Albumin/Globulin Ratio Amylase Vitamin B12 Procalcitonin 0.09 L Free T4 0.89 TSH 3rd Generation Urine Color Urine Clarity Urine pH Ur Specific Outlook Urine Protein Urine Glucose (UA) Urine Ketones Urine Blood Urine Nitrate Urine Bilirubin Urine Urobilinogen Ur Leukocyte Esterase Urine WBC (Auto) Urine RBC (Auto) Influenza Typ A,B (EIA) 06/05/17 11:14 WBC RBC Hgb Hct MCV MCH MCHC RDW Plt Count MPV Neut % (Auto) Lymph % (Auto) [place] % (Auto) Eos % (Auto) Baso % (Auto) Neut # (Auto) Lymph # (Auto) [place] # (Auto) Eos # (Auto) Baso # (Auto) ESR Sodium Potassium Chloride Carbon Dioxide Anion Gap BUN Creatinine Est GFR ( Amer) Est GFR (Non-Af Amer) Random Glucose Calcium Phosphorus Magnesium Total Bilirubin AST ALT 23 Alkaline Phosphatase Lactate Dehydrogenase C-Reactive Protein C-React Prot High Sens Total Protein Albumin Globulin Albumin/Globulin Ratio Amylase 67 Vitamin B12 Procalcitonin Free T4 TSH 3rd Generation Urine Color Urine Clarity Urine pH Ur Specific Outlook Urine Protein Urine Glucose (UA) Urine Ketones Urine Blood Urine Nitrate Urine Bilirubin Urine Urobilinogen Ur Leukocyte Esterase Urine WBC (Auto) Urine RBC (Auto) Influenza Typ A,B (EIA) Assessment & Plan (1) Fever Status: Acute (2) HIV disease Status: Acute (3) Influenza-like illness Status: Acute (4) Latent tuberculosis Status: Acute - Assessment and Plan (Free Text) Assessment: fever and back pain r/o active TB r/o Lymphoma FUO consider CT Chest, pulm eval, IV antibiotics to cover bacterial pathogens, sputum AFB, MRI spine
--- NOTE | 2017-06-05 12:43 | CP.PCM.PN ---
<Pankaj Ochoa - Last Filed: 06/05/17 16:05> Subjective - Date & Time of Evaluation Date of Evaluation: 06/05/17 Time of Evaluation: 09:00 - Subjective Subjective: Medicine progress note for Dr. [place] Patient seen and examined. Patient reports generalized body pains and aches. They are generally described as burning in quality. Pain is particularly pronounced diffusely in the back. Patient also complaining of bilateral finger swelling with pain. He is unable to close his hands on his own. Patient admits to cough with yellow sputum. He states that due to the burning quality of his pain, he thinks that he is feverish. Objective - Vital Signs/Intake and Output Vital Signs (last 24 hours): Temp Pulse Resp BP Pulse Ox 98.1 F 72 20 128/69 97 06/05/17 07:45 06/05/17 07:45 06/05/17 07:45 06/05/17 10:59 06/05/17 07:45 Intake and Output: 06/05/17 06/05/17 06:59 18:59 Intake Total 200 Output Total 300 Balance 200 -300 - Medications Medications: Current Medications Abacavir/Lamivudine/Zidovudine (Trizivir 300 Mg-150 Mg-300 Mg) 1 tab PO BID [facility] PRN Reason: Protocol Last Admin: 06/05/17 09:24 Dose: 1 tab Acetaminophen (Tylenol 325mg Tab) 650 mg PO Q6 PRN PRN Reason: Fever >100.4 F Last Admin: 06/05/17 03:34 Dose: 650 mg Enalapril Maleate (Vasotec) 20 mg PO DAILY [facility] Last Admin: 06/05/17 10:59 Dose: 20 mg Enoxaparin Sodium (Lovenox) 40 mg SC DAILY [facility] Last Admin: 06/05/17 09:25 Dose: 40 mg Famotidine (Pepcid) 20 mg PO BID [facility] Sodium Chloride (Sodium Chloride 0.9%) 1,000 mls @ 100 mls/hr IV .Q10H [facility] Last Admin: 06/05/17 10:23 Dose: Not Given Doxycycline Hyclate 100 mg/ (Sodium Chloride) 100 mls @ 100 mls/hr IVPB Q12H [facility] PRN Reason: Protocol Last Admin: 06/05/17 09:24 Dose: 100 mls/hr Ceftriaxone Sodium (Rocephin Iv 1 Gm Duplex) 50 mls @ 100 mls/hr IVPB DAILY [facility] PRN Reason: Protocol Last Admin: 06/05/17 10:35 Dose: 100 mls/hr Isoniazid (Niazid) 300 mg PO DAILY [facility] PRN Reason: Protocol Last Admin: 06/05/17 09:24 Dose: 300 mg Ketorolac Tromethamine (Toradol) 10 mg PO Q6 PRN PRN Reason: Pain, severe (8-10) Last Admin: 06/05/17 10:53 Dose: 10 mg Levetiracetam (Keppra) 500 mg PO BID [facility] Last Admin: 06/05/17 10:54 Dose: 500 mg Levothyroxine Sodium (Synthroid) 100 mcg PO DAILY@0630 [facility] Nevirapine (Viramune) 200 mg PO BID [facility] PRN Reason: Protocol Last Admin: 06/05/17 09:24 Dose: 200 mg Pneumococcal Polyvalent Vaccine (Pneumovax 23 Vaccine) 0.5 ml IM .ONCE ONE Stop: 06/07/17 10:01 Saccharomyces Boulardii (Florastor) 250 mg PO BID [facility] Tamsulosin HCl (Flomax) 0.4 mg PO DAILY [facility] Last Admin: 06/05/17 09:33 Dose: 0.4 mg Temazepam (Restoril) 30 mg PO [facility] Topiramate (Topamax) 50 mg PO DAILY [facility] Last Admin: 06/05/17 10:54 Dose: 50 mg - Labs Labs: 06/05/17 06:57 06/05/17 06:57 - Constitutional Appears: No Acute Distress - Head Exam Head Exam: ATRAUMATIC, NORMOCEPHALIC - Eye Exam Eye Exam: EOMI, Normal appearance - ENT Exam ENT Exam: Mucous Membranes Moist - Respiratory Exam Respiratory Exam: Decreased Breath Sounds, Clear to Ausculation Bilateral, NORMAL BREATHING PATTERN. absent: Rales, Rhonchi, Wheezes - Cardiovascular Exam Cardiovascular Exam: REGULAR RHYTHM, +S1, +S2 - GI/Abdominal Exam GI & Abdominal Exam: Soft, Normal Bowel Sounds. absent: Distended, Guarding, Tenderness - Extremities Exam Extremities Exam: absent: Pedal Edema, Tenderness Additional comments: Some edema of the fingers bilaterally is noted. No obvious joint deformity was palpated. - Back Exam Additional comments: Upper and lower back tenderness in a non-specific pattern both vertebral and paraspinal No obvious bony deformities palpated - Neurological Exam Neurological Exam: Alert, Awake, CN II-XII Intact, Oriented x3 - Psychiatric Exam Psychiatric exam: Anxious - Skin Skin Exam: Dry, Warm Assessment and Plan - Assessment and Plan (Free Text) Plan: 1.) Fever of unknown Origin ID consult, Dr. Roman, help appreciated Rheumatology consult, Dr. Hightower, help appreciated Pulmonology consult, Dr. Borrero, help appreciated Contact Isolation f/u mycobateria sputum culture Chest X-ray: unremarkable f/u Chest CT CT abd/pelvis w. IV contrast: Tylenol 650mg q6 prn for fever Empiric Rocephin 1 gm IV daily Empiric Doxycycline 100 mg IV Q12 2.) Quantiferon Gold + Resumed INH 300mg daily (started on May 25) f/u anti-histone ab Contact Isolation f/u mycobateria sputum culture Added vitamin B6 100 mg PO daily 3.) New onset Back pain Rheumatoid Factor + ESR and CRP elevated. Procalcitonin is low. - f/u Chest/Abd/Pelvix CT with IV contrast Home med Etodolac 400 mg BID is not formulary--switched to Toradol 10 mg PO Q6 prn F/u autoimmune workup including RYAN with reflexes f/u repeat ESR/CRP 4.) Elevated MCV possibly secondary to HIV medication B12 is 366 5.) History of HIV CD 4 count (03/18/17): 1502 Resume Viramune 200mg PO BID Resume Trizivir 1 tablet BID 6.) History of BPH Resumed Flomax .4mg po daily Dutasteride 0.5 mg daily is not formulary--switched to Finasteride 5 mg PO daily 7.) History of HTN Home med Quinapril 40 is not formulary--switched to Vasotec 20 mg PO daily 8.) History of Hypothyroid TSH 1.13 and free T4 0.89 Resumed home Synthroid 100 mcg daily 9.) Prophylaxis SCDs Pepcid 20mg PO BID Discussed with Dr. Nan Ochoa PGY-1 <Edith Montana V - Last Filed: 06/05/17 18:12> Objective - Vital Signs/Intake and Output Vital Signs (last 24 hours): Temp Pulse Resp BP Pulse Ox 98.1 F 65 20 106/61 97 06/05/17 15:49 06/05/17 15:49 06/05/17 15:49 06/05/17 15:49 06/05/17 15:49 Intake and Output: 06/05/17 06/05/17 06:59 18:59 Intake Total 200 900 Output Total 300 Balance 200 600 - Medications Medications: Current Medications Abacavir/Lamivudine/Zidovudine (Trizivir 300 Mg-150 Mg-300 Mg) 1 tab PO BID [facility] PRN Reason: Protocol Last Admin: 06/05/17 17:56 Dose: 1 tab Acetaminophen (Tylenol 325mg Tab) 650 mg PO Q6 PRN PRN Reason: Fever >100.4 F Last Admin: 06/05/17 03:34 Dose: 650 mg Enalapril Maleate (Vasotec) 20 mg PO DAILY [facility] Last Admin: 06/05/17 10:59 Dose: 20 mg Enoxaparin Sodium (Lovenox) 40 mg SC DAILY [facility] Last Admin: 06/05/17 09:25 Dose: 40 mg Famotidine (Pepcid) 20 mg PO BID [facility] Last Admin: 06/05/17 17:49 Dose: 20 mg Sodium Chloride (Sodium Chloride 0.9%) 1,000 mls @ 100 mls/hr IV .Q10H [facility] Last Admin: 06/05/17 16:41 Dose: 100 mls/hr Doxycycline Hyclate 100 mg/ (Sodium Chloride) 100 mls @ 100 mls/hr IVPB Q12H [facility] PRN Reason: Protocol Last Admin: 06/05/17 09:24 Dose: 100 mls/hr Ceftriaxone Sodium (Rocephin Iv 1 Gm Duplex) 50 mls @ 100 mls/hr IVPB DAILY [facility] PRN Reason: Protocol Last Admin: 06/05/17 10:35 Dose: 100 mls/hr Isoniazid (Niazid) 300 mg PO DAILY [facility] PRN Reason: Protocol Last Admin: 06/05/17 09:24 Dose: 300 mg Ketorolac Tromethamine (Toradol) 10 mg PO Q6 PRN PRN Reason: Pain, severe (8-10) Last Admin: 06/05/17 10:53 Dose: 10 mg Levetiracetam (Keppra) 500 mg PO BID [facility] Last Admin: 06/05/17 17:50 Dose: 500 mg Levothyroxine Sodium (Synthroid) 100 mcg PO DAILY@0630 [facility] Nevirapine (Viramune) 200 mg PO BID [facility] PRN Reason: Protocol Last Admin: 06/05/17 17:56 Dose: 200 mg Pneumococcal Polyvalent Vaccine (Pneumovax 23 Vaccine) 0.5 ml IM .ONCE ONE Stop: 06/07/17 10:01 Pyridoxine HCl (Vitamin B6) 100 mg PO DAILY [facility] Saccharomyces Boulardii (Florastor) 250 mg PO BID [facility] Last Admin: 06/05/17 17:50 Dose: 250 mg Tamsulosin HCl (Flomax) 0.4 mg PO DAILY [facility] Last Admin: 06/05/17 09:33 Dose: 0.4 mg Temazepam (Restoril) 30 mg PO HS [facility] Topiramate (Topamax) 50 mg PO DAILY [facility] Last Admin: 06/05/17 10:54 Dose: 50 mg - Labs Labs: 06/05/17 06:57 06/05/17 06:57 Attending/Attestation - Attestation I have personally seen and examined this patient.: Yes I have fully participated in the care of the patient.: Yes I have reviewed all pertinent clinical information, including history, physical exam and plan: Yes Notes (Text): Patient seen, examined and case discussed with day-time resident. Patient seen during morning rounds. Patient with known history of HIV, CD4 count above 1000, compliant on HIV medications, hx of recently diagnosed latent tuberculosis on prophylatic INH, hx of arthritis comes in with unremitting cough over 6 weeks and new worsening back pains upper and lower back. Patient reports prior history of HIV transmission through intercourse, denies IV drug use, and denies history of recent travel. Patient denies prior history of rash. Patient denies recent weight loss. 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 Patient is rheumatologic factor positive, further workup order. Patient also noted to have edematous hands, order for xrays to appreciates consistent with RA/OA. Patient had completed CT abdomen and pelvis with PO and IV contrast; noted during report possible pneumonia and of masslike 2cm. We are awaiting CT Chest for better picture. ID, Rheumatology and pulmonary on board. Patient is on prophylactic airborne precautions. Patient denies hemotypsis, cough is dry. Patient is awake, alert, conversant, pleasant, but reports body aches and pains specifically upper and lower back. Reviewed in EMR, patient noted for disc herniations in the lumbar spine about 2 years, he reports he had that MRI completing because he was doing heavy lifting at work and pulled on his back. He reports this is a different feeling. Assessment/Plan 1.) Fever of unknown Origin * ID consult, Dr. Roman, help appreciated * Rheumatology consult, Dr. Hightower, help appreciated * Pulmonology consult, Dr. Borrero, help appreciated * Airborne Isolation * f/u mycobateria sputum culture * Chest X-ray: unremarkable * f/u Chest CT w IV contrast * CT abd/pelvis w. IV contrast: * Tylenol 650mg q6 prn for fever * Empiric Rocephin 1 gm IV daily * Empiric Doxycycline 100 mg IV Q12 * Procalcitonin: low * ESR and CRP elevated * LDH normal 2.)Latent tuberculosis History of Quantiferon Gold + * Resumed INH 300mg PO daily (started on May 25) for * Check given possible drug induce lupus f/u anti-histone ab * Airborne Isolation * f/u mycobateria sputum culture * Added vitamin B6 100 mg PO daily for prophylaxis while on INH 3.) New onset Back pain * Rheumatoid Factor + * ESR and CRP elevated. Procalcitonin is low. * f/u Chest/Abd/Pelvix CT with IV contrast * Will order for thoracic and lumbar MRI to evaluate back pain 4.) Elevated MCV * possibly secondary to HIV medication * B12 is 366 5.) History of HIV * Infectious Disease on the case->help appreciated * CD 4 count (03/18/17): 1502 * Resume Viramune 200mg PO BID * Resume Trizivir 1 tablet BID 6.) History of BPH * Resumed Flomax .4mg po daily * Dutasteride 0.5 mg daily is not formulary--switched to Finasteride 5 mg PO daily 7.) History of Hypertension * Home med Quinapril 40 is not formulary--switched to Vasotec 20 mg PO daily 8.) History of Hypothyroid * TSH 1.13 and free T4 0.89 * Resumed home Synthroid 100 mcg daily 9.) Prophylaxis * SCDs * Pepcid 20mg PO BID * Lovenox 40mg subq daily
[2017-06-05 13:50] LABS: HEPATITIS B SURFACE AG Negative (NEGATIVE)
[2017-06-05 13:55] LABS: HEPATITIS A IGM NEGATIVE (NEGATIVE); HEPATITIS B CORE AB NEGATIVE (NEGATIVE)
[2017-06-05 14:07] LABS: HEPATITIS C ANTIBODY NEGATIVE (NEGATIVE)
[2017-06-05] MEDS: Saccharomyces Boulardi 250 mg Cap PO SCH (17:50)
--- NOTE | 2017-06-05 18:02 | CP.PCM.CON ---
History of Present Illness - History of Present Illness History of Present Illness: reason for consult: cough x 6 weeks HPI: 57M with PMHx of HIV, latent TB, HTN, arthritis, hypothyroidism, BPH, HLD and aneurysm presented to the ED for back pain and cough x 4-5 weeks. Patient was started on isoniazid recently by Dr. Roman for a (+) QFT result. PMH: HIV, TB, HTN, Arthritis PSH: brain clip 2004 at [facility] Meds: trizivir, viramune, isoniazid (started 05/25) Allergies: NKDA SH: Lives alone, denies smoking, alcohol, illicit drug use Assessment and Plan: 1. Subacute cough - CT Abdomen 06/04: opacity in the left lower lung field, pleural-based masslike focus measuring up to 2 cm indicating scarring vs. nodule - CT chest ordered by primary medicine team for today - TMax 101.8, now afebrile - flu negative - - rocephin 2. Latent tuberculosis - continue isoniazid per ID Past Patient History - Infectious Disease Hx of Infectious Diseases: None - Past Medical History & Family History Past Medical History?: Yes - Past Social History Smoking Status: Never Smoked - CARDIAC Hx Hypercholesterolemia: Yes Hx Hypertension: Yes - PULMONARY Hx Respiratory Disorders: No - NEUROLOGICAL Hx Seizures: Yes - HEENT Hx HEENT Problems: No - ENDOCRINE/METABOLIC Hx Hyperthyroidism: Yes - HEMATOLOGICAL/ONCOLOGICAL Hx Human Immunodeficiency Virus (HIV): Yes - INTEGUMENTARY Hx Dermatological Problems: No - MUSCULOSKELETAL/RHEUMATOLOGICAL Hx Arthritis: Yes - GASTROINTESTINAL Hx Gastrointestinal Disorders: No - GENITOURINARY/GYNECOLOGICAL Hx Genitourinary Disorders: Yes - PSYCHIATRIC Hx Substance Use: No - SURGICAL HISTORY Hx Surgeries: Yes Other/Comment: excision abscess right hip. h/o cerebral aneurysm 12 years ago/ surgery - ANESTHESIA Hx Anesthesia: Yes Hx Anesthesia Reactions: No Hx Malignant Hyperthermia: No Meds Allergies/Adverse Reactions: Allergies Allergy/AdvReac Type Severity Reaction Status Date / Time No Known Allergies Allergy Verified 04/06/17 13:06 - Medications Medications: Current Medications Abacavir/Lamivudine/Zidovudine (Trizivir 300 Mg-150 Mg-300 Mg) 1 tab PO BID [facility] PRN Reason: Protocol Last Admin: 06/05/17 17:56 Dose: 1 tab Acetaminophen (Tylenol 325mg Tab) 650 mg PO Q6 PRN PRN Reason: Fever >100.4 F Last Admin: 06/05/17 03:34 Dose: 650 mg Enalapril Maleate (Vasotec) 20 mg PO DAILY [facility] Last Admin: 06/05/17 10:59 Dose: 20 mg Enoxaparin Sodium (Lovenox) 40 mg SC DAILY [facility] Last Admin: 06/05/17 09:25 Dose: 40 mg Famotidine (Pepcid) 20 mg PO BID [facility] Last Admin: 06/05/17 17:49 Dose: 20 mg Sodium Chloride (Sodium Chloride 0.9%) 1,000 mls @ 100 mls/hr IV .Q10H [facility] Last Admin: 06/05/17 16:41 Dose: 100 mls/hr Doxycycline Hyclate 100 mg/ (Sodium Chloride) 100 mls @ 100 mls/hr IVPB Q12H [facility] PRN Reason: Protocol Last Admin: 06/05/17 09:24 Dose: 100 mls/hr Ceftriaxone Sodium (Rocephin Iv 1 Gm Duplex) 50 mls @ 100 mls/hr IVPB DAILY [facility] PRN Reason: Protocol Last Admin: 06/05/17 10:35 Dose: 100 mls/hr Isoniazid (Niazid) 300 mg PO DAILY [facility] PRN Reason: Protocol Last Admin: 06/05/17 09:24 Dose: 300 mg Ketorolac Tromethamine (Toradol) 10 mg PO Q6 PRN PRN Reason: Pain, severe (8-10) Last Admin: 06/05/17 10:53 Dose: 10 mg Levetiracetam (Keppra) 500 mg PO BID [facility] Last Admin: 06/05/17 17:50 Dose: 500 mg Levothyroxine Sodium (Synthroid) 100 mcg PO DAILY@0630 [facility] Nevirapine (Viramune) 200 mg PO BID [facility] PRN Reason: Protocol Last Admin: 06/05/17 17:56 Dose: 200 mg Pneumococcal Polyvalent Vaccine (Pneumovax 23 Vaccine) 0.5 ml IM .ONCE ONE Stop: 06/07/17 10:01 Pyridoxine HCl (Vitamin B6) 100 mg PO DAILY [facility] Saccharomyces Boulardii (Florastor) 250 mg PO BID [facility] Last Admin: 06/05/17 17:50 Dose: 250 mg Tamsulosin HCl (Flomax) 0.4 mg PO DAILY [facility] Last Admin: 06/05/17 09:33 Dose: 0.4 mg Temazepam (Restoril) 30 mg PO HS [facility] Topiramate (Topamax) 50 mg PO DAILY [facility] Last Admin: 06/05/17 10:54 Dose: 50 mg Results - Vital Signs Recent Vital Signs: Last Vital Signs Temp 98.1 F 06/05/17 15:49 Pulse 65 06/05/17 15:49 Resp 20 06/05/17 15:49 BP 106/61 06/05/17 15:49 Pulse Ox 97 06/05/17 15:49 - Labs Result Diagrams: 06/05/17 06:57 06/05/17 06:57 Labs: Laboratory Results - last 24 hr 06/05/17 06/05/17 06/05/17 00:52 06:57 06:57 WBC 7.4 RBC 3.26 L Hgb 12.4 Hct 35.7 MCV 109.3 H MCH 37.8 H MCHC 34.6 RDW 13.5 Plt Count 174 MPV 9.1 Neut % (Auto) 65.3 Lymph % (Auto) 25.1 [place] % (Auto) 7.7 Eos % (Auto) 1.5 Baso % (Auto) 0.4 Neut # (Auto) 4.8 Lymph # (Auto) 1.9 [place] # (Auto) 0.6 Eos # (Auto) 0.1 Baso # (Auto) 0.0 ESR 43 H Sodium 142 Potassium 3.6 Chloride 105 Carbon Dioxide 25 Anion Gap 16 BUN 14 Creatinine 0.6 L Est GFR ( Amer) > 60 Est GFR (Non-Af Amer) > 60 Random Glucose 90 Calcium 8.4 L Phosphorus 3.6 Magnesium 2.0 Total Bilirubin 0.5 AST 28 ALT 28 Alkaline Phosphatase 78 Lactate Dehydrogenase 431 C-Reactive Protein 54.80 H C-React Prot High Sens Total Protein 7.2 Albumin 3.7 Globulin 3.5 Albumin/Globulin Ratio 1.1 Amylase Vitamin B12 366 Procalcitonin Free T4 TSH 3rd Generation 1.13 Hepatitis A IgM Ab Hep Bs Antigen Hep B Core IgM Ab Hepatitis C Antibody Influenza Typ A,B (EIA) Negative for flu a/b Anti-Staphylolysin O 06/05/17 06/05/17 06/05/17 06:57 08:23 11:14 WBC RBC Hgb Hct MCV MCH MCHC RDW Plt Count MPV Neut % (Auto) Lymph % (Auto) [place] % (Auto) Eos % (Auto) Baso % (Auto) Neut # (Auto) Lymph # (Auto) [place] # (Auto) Eos # (Auto) Baso # (Auto) ESR Sodium Potassium Chloride Carbon Dioxide Anion Gap BUN Creatinine Est GFR ( Amer) Est GFR (Non-Af Amer) Random Glucose Calcium Phosphorus Magnesium Total Bilirubin AST ALT Alkaline Phosphatase Lactate Dehydrogenase C-Reactive Protein C-React Prot High Sens > 15.00 H Total Protein Albumin Globulin Albumin/Globulin Ratio Amylase Vitamin B12 Procalcitonin 0.09 L Free T4 0.89 TSH 3rd Generation Hepatitis A IgM Ab Hep Bs Antigen Hep B Core IgM Ab Hepatitis C Antibody Influenza Typ A,B (EIA) Anti-Staphylolysin O 06/05/17 06/05/17 06/05/17 11:14 11:14 13:02 WBC RBC Hgb Hct MCV MCH MCHC RDW Plt Count MPV Neut % (Auto) Lymph % (Auto) [place] % (Auto) Eos % (Auto) Baso % (Auto) Neut # (Auto) Lymph # (Auto) [place] # (Auto) Eos # (Auto) Baso # (Auto) ESR Sodium Potassium Chloride Carbon Dioxide Anion Gap BUN Creatinine Est GFR ( Amer) Est GFR (Non-Af Amer) Random Glucose Calcium Phosphorus Magnesium Total Bilirubin AST ALT 23 Alkaline Phosphatase Lactate Dehydrogenase C-Reactive Protein C-React Prot High Sens Total Protein Albumin Globulin Albumin/Globulin Ratio Amylase 67 Vitamin B12 Procalcitonin Free T4 TSH 3rd Generation Hepatitis A IgM Ab Negative Hep Bs Antigen Negative Hep B Core IgM Ab Negative Hepatitis C Antibody Negative Influenza Typ A,B (EIA) Anti-Staphylolysin O Negative
--- NOTE | 2017-06-05 22:56 | CT ---
EXAM: CT Chest With Intravenous Contrast EXAM DATE/TIME: Exam ordered 06/05/2017 2:00 PM CLINICAL HISTORY: 57 years old, male; Pain and signs and symptoms; Cough and other: Upper back pain; Symptoms not specified; Additional info: Chronic cough TECHNIQUE: Axial computed tomography images of the chest with intravenous contrast. All CT scans at this facility use one or more dose reduction techniques, viz.: automated exposure control; ma/kV adjustment per patient size (including targeted exams where dose is matched to indication; i.e. head); or iterative reconstruction technique. Coronal and sagittal reformatted images were created and reviewed. CONTRAST: 100 mL of visipaque 320 administered intravenously. COMPARISON: No relevant prior studies available. FINDINGS: Lungs: Small somewhat nodular groundglass opacities are noted in the right upper lobe abutting the minor fissure. Less well defined groundglass opacities are noted in the left lower lobe. Some have a "tree in bud" appearance. Pleural space: Unremarkable. No pneumothorax. No significant effusion. Heart: An epicardial calcification is noted at the apex of the heart. No significant pericardial effusion. Bones/joints: There is a suggestion of calcification/ossification adjacent to the left humeral head laterally which could represent calcific tendinitis. No acute fracture. No dislocation. Soft tissues: Unremarkable. Vasculature: Unremarkable. No thoracic aortic aneurysm. Lymph nodes: Unremarkable. No enlarged lymph nodes. Liver: There are 3 lesions within the liver. One in the posterior superior segment of the right lobe of the liver measuring approximately 1.2 cm with a density measurement us 6H.. One in the anterior inferior segment of the right lobe of the liver measuring 1 cm with a density measurement of 5H. and a third in the medial segment of the left lobe measuring approximately 6 mm too small to characterize. All 3 lesions have a suggestion of a focus of nodular peripheral enhancement IMPRESSION: 1. Nodular groundglass opacities in the right upper lobe with mixed groundglass and tree in bud pattern of inflammatory changes in the left lower lobe. Findings suggest bronchopneumonia. 2. 3 liver lesions. They are not fully characterized on this exam. There are findings that suggest presence of a hemangioma. MR of the liver could be performed for definitive characterization. 3. Epicardial calcification likely of no clinical significance 2 the patient. This may be a calcified lymph node or residual of previous granulomatous disease.
[2017-06-06] MEDS: Sodium Chloride 0.9% 1,000 ML IV SCH ×3 (04:34→20:07)
[2017-06-06] MEDS: Levothyroxine 100 MCG TAB PO SCH (05:53)
--- NOTE | 2017-06-06 07:23 | CP.PCM.PN ---
<Pankaj Ochoa - Last Filed: 06/06/17 13:33> Subjective - Date & Time of Evaluation Date of Evaluation: 06/06/17 Time of Evaluation: 10:00 - Subjective Subjective: Medicine progress note for Dr. [place] Patient seen and examined. Patient reports no changes in his diffuse back pain as compared to yesterday. Patient still cannot close his hands. Patient states that he is eating and sleeping well. Patient denies subjective fever at this time but perseverates on the burning sensation on his back. No other acute complaints at this time. Objective - Vital Signs/Intake and Output Vital Signs (last 24 hours): Temp Pulse Resp BP Pulse Ox 98.5 F 65 24 97/58 L 97 06/06/17 00:00 06/06/17 00:00 06/06/17 00:00 06/06/17 00:00 06/06/17 00:00 Intake and Output: 06/06/17 06/06/17 06:59 18:59 Intake Total 1300 Balance 1300 - Medications Medications: Current Medications Abacavir/Lamivudine/Zidovudine (Trizivir 300 Mg-150 Mg-300 Mg) 1 tab PO BID [facility] PRN Reason: Protocol Last Admin: 06/05/17 17:56 Dose: 1 tab Acetaminophen (Tylenol 325mg Tab) 650 mg PO Q6 PRN PRN Reason: Fever >100.4 F Last Admin: 06/05/17 20:47 Dose: 650 mg Enalapril Maleate (Vasotec) 20 mg PO DAILY [facility] Last Admin: 06/05/17 10:59 Dose: 20 mg Enoxaparin Sodium (Lovenox) 40 mg SC DAILY [facility] Last Admin: 06/05/17 09:25 Dose: 40 mg Famotidine (Pepcid) 20 mg PO BID [facility] Last Admin: 06/05/17 17:49 Dose: 20 mg Sodium Chloride (Sodium Chloride 0.9%) 1,000 mls @ 100 mls/hr IV .Q10H [facility] Last Admin: 06/06/17 04:34 Dose: 100 mls/hr Doxycycline Hyclate 100 mg/ (Sodium Chloride) 100 mls @ 100 mls/hr IVPB Q12H [facility] PRN Reason: Protocol Last Admin: 06/05/17 20:43 Dose: 100 mls/hr Ceftriaxone Sodium (Rocephin Iv 1 Gm Duplex) 50 mls @ 100 mls/hr IVPB DAILY [facility] PRN Reason: Protocol Last Admin: 06/05/17 10:35 Dose: 100 mls/hr Isoniazid (Niazid) 300 mg PO DAILY [facility] PRN Reason: Protocol Last Admin: 06/05/17 09:24 Dose: 300 mg Ketorolac Tromethamine (Toradol) 10 mg PO Q6 PRN PRN Reason: Pain, severe (8-10) Last Admin: 06/05/17 17:59 Dose: 10 mg Levetiracetam (Keppra) 500 mg PO BID [facility] Last Admin: 06/05/17 17:50 Dose: 500 mg Levothyroxine Sodium (Synthroid) 100 mcg PO DAILY@0630 [facility] Last Admin: 06/06/17 05:53 Dose: 100 mcg Nevirapine (Viramune) 200 mg PO BID [facility] PRN Reason: Protocol Last Admin: 06/05/17 17:56 Dose: 200 mg Pneumococcal Polyvalent Vaccine (Pneumovax 23 Vaccine) 0.5 ml IM .ONCE ONE Stop: 06/07/17 10:01 Pyridoxine HCl (Vitamin B6) 100 mg PO DAILY [facility] Saccharomyces Boulardii (Florastor) 250 mg PO BID [facility] Last Admin: 06/05/17 17:50 Dose: 250 mg Tamsulosin HCl (Flomax) 0.4 mg PO DAILY [facility] Last Admin: 06/05/17 09:33 Dose: 0.4 mg Temazepam (Restoril) 30 mg PO HS [facility] Last Admin: 06/05/17 22:28 Dose: 30 mg Topiramate (Topamax) 50 mg PO DAILY [facility] Last Admin: 06/05/17 10:54 Dose: 50 mg - Labs Labs: 06/05/17 06:57 06/05/17 06:57 - Additional Findings Additional findings: - Constitutional Appears: No Acute Distress - Head Exam Head Exam: ATRAUMATIC, NORMOCEPHALIC - Eye Exam Eye Exam: EOMI, Normal appearance - ENT Exam ENT Exam: Mucous Membranes Moist - Respiratory Exam Respiratory Exam: Decreased Breath Sounds, Clear to Ausculation Bilateral, NORMAL BREATHING PATTERN. absent: Rales, Rhonchi, Wheezes - Cardiovascular Exam Cardiovascular Exam: REGULAR RHYTHM, +S1, +S2 - GI/Abdominal Exam GI & Abdominal Exam: Soft, Normal Bowel Sounds. absent: Distended, Guarding, Tenderness - Extremities Exam Extremities Exam: absent: Pedal Edema, Tenderness Additional comments: Some edema of the fingers bilaterally is noted. No obvious joint deformity was palpated. - Back Exam Additional comments: Upper and lower back tenderness in a non-specific pattern both vertebral and paraspinal No obvious bony deformities palpated - Neurological Exam Neurological Exam: Alert, Awake, CN II-XII Intact, Oriented x3 - Psychiatric Exam Psychiatric exam: Anxious - Skin Skin Exam: Dry, Warm Assessment and Plan - Assessment and Plan (Free Text) Plan: 1.) Fever of unknown Origin ID consult, Dr. Roman, help appreciated Rheumatology consult, Dr. Hightower, help appreciated Pulmonology consult, Dr. Borrero, help appreciated Contact Isolation Chest X-ray: unremarkable Chest CT w. IV contrast: * 1. Nodular groundglass opacities in the right upper lobe with mixed groundglass and tree in bud pattern of inflammatory changes in the left lower lobe. Findings suggest bronchopneumonia. * 2. Three liver lesions. They are not fully characterized on this exam. There are findings that suggest presence of a hemangioma. MR of the liver could be performed for definitive characterization. * 3. Epicardial calcification likely of no clinical significance 2 the patient. This may be a calcified lymph node or residual of previous granulomatous disease. CT abd/pelvis w. IV contrast: * Limited evaluation of the lung bases. Evaluation limited by respiratory motion artifact. Hazy patchy opacity in the left lower lung field. Partial visualization of minimal opacity in the right middle lobe. Pleural-based masslike focus measuring up to 2 cm, may represent scarring but cannot exclude true nodule. Tylenol 650mg q6 prn for fever Empiric Rocephin 1 gm IV daily Empiric Doxycycline 100 [address] Q[address] Roman, patient has had 2 Z-packs recently for illness. Continue present antibiotics. f/u sputum culture 2.) Quantiferon Gold + Resumed INH 300mg daily (started on May 25) f/u anti-histone ab Contact Isolation f/u mycobateria sputum culture x3 Added vitamin B6 100 mg PO daily 3.) New onset Back pain Rheumatoid Factor + ESR and CRP elevated. Procalcitonin is low. Lumbar spine MRI * 1. Interval progression of degenerative disc disease at L4-5 with a left posterolateral disc extrusion an approximately 13 mm caudal migration of extruded fragment with impingement on the traversing left L5 nerve root. Also noted is a right foraminal disc protrusion which abuts the exiting right L4 nerve root. No central spinal canal stenosis. * 2. No change in broad-based central disc protrusion at L5-S1 with mild spinal canal stenosis. Right foraminal and far lateral disc protrusions abut the exiting right L5 nerve root. * 3. Incompletely imaged and characterized 2.6 x 1.9 cm cystic lesion in the right iliopsoas. Dedicated MRI scan of the pelvis without and with intravenous contrast would be helpful for further characterization. f/u Pelvis MRI Home med Etodolac 400 mg BID is not formulary--switched to Toradol 10 mg PO Q6 prn F/u autoimmune workup including RYAN with reflexes 4.) Hand swelling and pain Bilateral hand X-rays: Bilateral threaded changes- no gross erosions. No prominent osteophytes, bilateral minimal osseous hypertrophic changes present. The proximal and distal interphalangeal joint spaces appear narrowed bilaterally. Bilateral extraosseous juxta articular small, 1 mm like calcifications/ossifications. Correlation with rheumatologic panel recommended. No cortical interruption. No aggressive periosteal reaction noted. No fractures. f/u rheumatology workup Started Gabapentin 300 mg PO BID 5.) History of Epilepsy Resumed home Keppra 500 mg PO BID Resumed home Topamax 50 mg PO daily 6.) Elevated MCV possibly secondary to HIV medication B12 is 366 7.) History of HIV CD 4 count (03/18/17): 1502 Resume Viramune 200mg PO BID Resume Trizivir 1 tablet BID 8.) History of BPH Resumed Flomax .4mg po daily Dutasteride 0.5 mg daily is not formulary--switched to Finasteride 5 mg PO daily 9.) History of HTN Home med Quinapril 40 is not formulary--switched to Vasotec 20 mg PO daily 10.) History of Hypothyroid TSH 1.13 and free T4 0.89 Resumed home Synthroid 100 mcg daily 11.) Prophylaxis SCDs Pepcid 20mg PO BID Discussed with Dr. Nan Ochoa PGY-1 <Edith Montana V - Last Filed: 06/07/17 09:18> Objective - Vital Signs/Intake and Output Vital Signs (last 24 hours): Temp Pulse Resp BP Pulse Ox 98.4 F 76 18 122/70 97 06/07/17 07:00 06/07/17 07:00 06/07/17 07:00 06/07/17 07:00 06/07/17 07:00 Intake and Output: 06/07/17 06/07/17 06:59 18:59 Intake Total 1400 260 Balance 1400 260 - Medications Medications: Current Medications Abacavir/Lamivudine/Zidovudine (Trizivir 300 Mg-150 Mg-300 Mg) 1 tab PO BID [facility] PRN Reason: Protocol Last Admin: 06/06/17 17:26 Dose: 1 tab Acetaminophen (Tylenol 325mg Tab) 650 mg PO Q6 PRN PRN Reason: Fever >100.4 F Last Admin: 06/06/17 10:06 Dose: 650 mg Enalapril Maleate (Vasotec) 20 mg PO DAILY [facility] Last Admin: 06/06/17 10:05 Dose: 20 mg Enoxaparin Sodium (Lovenox) 40 mg SC DAILY [facility] Last Admin: 06/06/17 10:07 Dose: 40 mg Famotidine (Pepcid) 20 mg PO BID [facility] Last Admin: 06/06/17 17:26 Dose: 20 mg Gabapentin (Neurontin) 300 mg PO BID [facility] Last Admin: 06/06/17 17:26 Dose: 300 mg Sodium Chloride (Sodium Chloride 0.9%) 1,000 mls @ 100 mls/hr IV .Q10H [facility] Last Admin: 06/07/17 02:12 Dose: Not Given Doxycycline Hyclate 100 mg/ (Sodium Chloride) 100 mls @ 100 mls/hr IVPB Q12H [facility] PRN Reason: Protocol Last Admin: 06/07/17 08:20 Dose: 100 mls/hr Ceftriaxone Sodium (Rocephin Iv 1 Gm Duplex) 50 mls @ 100 mls/hr IVPB DAILY [facility] PRN Reason: Protocol Last Admin: 06/06/17 10:07 Dose: 100 mls/hr Ketorolac Tromethamine (Toradol) 10 mg PO Q6 PRN PRN Reason: Pain, severe (8-10) Last Admin: 06/06/17 14:25 Dose: 10 mg Levetiracetam (Keppra) 500 mg PO BID [facility] Last Admin: 06/06/17 17:26 Dose: 500 mg Levothyroxine Sodium (Synthroid) 100 mcg PO DAILY@0630 [facility] Last Admin: 06/07/17 05:34 Dose: 100 mcg Nevirapine (Viramune) 200 mg PO BID [facility] PRN Reason: Protocol Last Admin: 06/06/17 17:26 Dose: 200 mg Pneumococcal Polyvalent Vaccine (Pneumovax 23 Vaccine) 0.5 ml IM .ONCE ONE Stop: 06/07/17 10:01 Pyridoxine HCl (Vitamin B6) 100 mg PO DAILY [facility] Last Admin: 06/06/17 10:06 Dose: 100 mg Saccharomyces Boulardii (Florastor) 250 mg PO BID [facility] Last Admin: 06/06/17 17:26 Dose: 250 mg Tamsulosin HCl (Flomax) 0.4 mg PO DAILY [facility] Last Admin: 06/06/17 10:06 Dose: 0.4 mg Temazepam (Restoril) 30 mg PO HS [facility] Last Admin: 06/06/17 21:08 Dose: 30 mg Topiramate (Topamax) 50 mg PO DAILY [facility] - Labs Labs: 06/07/17 08:02 06/07/17 08:02 Attending/Attestation - Attestation I have personally seen and examined this patient.: Yes I have fully participated in the care of the patient.: Yes I have reviewed all pertinent clinical information, including history, physical exam and plan: Yes Notes (Text): This is late computer entry for 06/06/17. Patient is awake, alert, conversant, pleasant, but reports body aches and pains specifically upper and lower back reports has not changed since yesterday. Patient has completed lumbar and pelvic MRI today. Patient's Tmax: 100.8F over past 24 hours. Patient remains on airborne precautions awaiting 3 sputum AFB to be negative. Will continue IV abx to cover for pneumonia and monitor fever. Assessment/Plan 1.) Fever of unknown Origin Suspected Bronchopneumonia * ID consult, Dr. Roman, help appreciated * Rheumatology consult, Dr. Hightower, help appreciated * Pulmonology consult, Dr. Borrero, help appreciated * Airborne Isolation * f/u mycobateria sputum culture pending * Chest X-ray: unremarkable * Chest CT w IV contrast (06/05/17): nodular groundglass opacities in the right upper lobe with mized groundglass and tree in bud pattern of inflammatory changes in the left lower lobe. Bronchopneumonia. 3 liver lesions ~ possible hemiangioma. Epicardial calcification likely no clinical significance for patient * CT abd/pelvis w. IV contrast: * Tylenol 650mg q6 prn for fever * Empiric Rocephin 1 gm IV daily * Empiric Doxycycline 100 mg IV Q12 * Procalcitonin: low * ESR and CRP elevated * LDH normal 2.)Latent tuberculosis History of Quantiferon Gold + * ID consult, Dr. Roman, help appreciated * Resumed INH 300mg PO daily (started on May 25) * Added vitamin B6 100 mg PO daily for prophylaxis while on INH * Check given possible drug induce lupus f/u anti-histone ab * Airborne Isolation * f/u mycobateria sputum culture * Added vitamin B6 100 mg PO daily for prophylaxis while on INH 3.) Herniated Discs Lumbago Lumbar Nerve Impingement * Rheumatoid Factor + * ESR and CRP elevated. Procalcitonin is low. * f/u Chest/Abd/Pelvix CT with IV contrast * MRI (06/06/17): interval progession of degenerative disc disease at L4-L5 with a left posterolateral disc extrusion an approximately 11mm caudal migration of extruded fragment with impingement of the transversing left L5 nerve azul. Right foraminal disc protrusion abuts right L4 nerve root. No central spinal canal stenosis. No change in broad based central disc protusion L5-S1 w mild spinal canal stenosis. further findings per report * Pending Pelvic MRI to characterize abnormality * PT/OT eval 4.) Elevated MCV * possibly secondary to HIV medication * B12 is 366 5.) History of HIV * Infectious Disease on the case->help appreciated * CD 4 count (03/18/17): 1502 * Resume Viramune 200mg PO BID * Resume Trizivir 1 tablet BID 6.) History of BPH * Resumed Flomax .4mg po daily * Dutasteride 0.5 mg daily is not formulary--switched to Finasteride 5 mg PO daily 7.) History of Hypertension * Home med Quinapril 40 is not formulary--switched to Vasotec 20 mg PO daily 8.) History of Hypothyroid * TSH 1.13 and free T4 0.89 * Resumed home Synthroid 100 mcg daily 9) History of Arthritis * Rheumatoid Factor +, awaiting Anti-CCP pending; autoimmune workup underway * Rheumatology consult, Dr. Hightower, help appreciated * Awaiting official report of hand xrays 10) History of Brain Aneurysm (2004) * Brain clip placed in 2004 at [facility] in [place], [place] * Topamax 50mg PO daily * Keppra 500mg PO BID 11.) Prophylaxis * SCDs * Pepcid 20mg PO BID * Lovenox 40mg subq daily
[2017-06-06 08:19] LABS: BASO % 0.7 % (0.0-2.0); EOS # 0.2 K/uL (0.0-0.7); EOS % 4.7 % (0.0-4.0); LYMPH # 1.2 K/uL (1.0-4.3); LYMPH % 34.3 % (20.0-40.0); MEAN CELL VOLUME 108.2 fL (80.0-94.0); MEAN CORPUSCULAR HEMOGLOBIN 38.4 pg (27.0-31.0); MEAN CORPUSCULAR HGB CONC 35.5 g/dL (33.0-37.0); MEAN PLATELET VOLUME 9.1 fL (7.2-11.7); MONO # 0.3 K/uL (0.0-0.8); MONO % 9.1 % (0.0-10.0); NEUT # 1.8 K/uL (1.8-7.0); NEUT % 51.2 % (50.0-75.0); NRBC % 0.1 % (0.0-2.0); RBC 3.12 Mil/uL (4.40-5.90); RED CELL DISTRIBUTION WIDTH 13.6 % (11.5-14.5); WHITE BLOOD COUNT 3.5 K/uL (4.8-10.8)
[2017-06-06 08:41] LABS: ALB/GLOB RATIO 1.1 (1.0-2.1); ALBUMIN 3.5 g/dL (3.5-5.0); ALT/SGPT 27 U/L (21-72); AST/SGOT 26 U/L (17-59); BLOOD UREA NITROGEN 10 mg/dL (9-20); CALCIUM 8.4 mg/dl (8.6-10.4); GFR AFRICAN-AMERICAN > 60; GFR NON-AFRICAN AMERICAN > 60
[2017-06-06] MEDS: Abacavir/Lamivudine/Zidovudine 300 mg-150mg- 300 mg Tab PO SCH ×2 (10:06→17:26)
[2017-06-06] MEDS: Pyridoxine 100 mg Tab PO SCH (10:06)
[2017-06-06] MEDS: Saccharomyces Boulardi 250 mg Cap PO SCH ×2 (10:06→17:26)
[2017-06-06] MEDS: cefTRIAXone IV 1 gm in Dextros 50 ML IVPB SCH (10:07)
[2017-06-06] MEDS: Enoxaparin 40 mg Syringe SC SCH (10:07)
--- NOTE | 2017-06-06 10:42 | MRI ---
PROCEDURE: MR LUMBAR SPINE WITHOUT CONTRAST HISTORY: fever of unknown origin, back pain COMPARISON: 10/03/2015. TECHNIQUE: Multiecho multiplanar sequences were performed through the lumbar spine without the use of intravenous contrast. FINDINGS: There is normal alignment of the lumbar vertebral bodies. There is normal lumbar lordosis. Vertebral height is normal. There is no acute fracture, spondylolysis or spondylolisthesis. Bone marrow signal is within normal limits. The conus medullaris terminates at a normal level and the nerve roots of cauda equina are normal. The paraspinous soft tissues are normal. There is atrophy of the right psoas muscle. Incompletely imaged and characterized is a 2.6 x 1.9 cm hyperintense lesion in the right iliopsoas sees. T12-L1: No disc herniation, spinal canal stenosis or neural foraminal narrowing. L1-2: No disc herniation, spinal canal stenosis or neural foraminal narrowing. L2-3: No disc herniation, spinal canal stenosis or neural foraminal narrowing. L3-4: Diffuse posterior disc bulge without central spinal canal stenosis. Mild bilateral facet arthropathy contribute to mild neural foraminal narrowing. L4-5: Interval progression of degenerative disc disease. Diffuse posterior disc bulge with superimposed left posterolateral disc extrusion with approximately 13 mm caudal migration of the extruded disc fragment with results in mass effect on the traversing left L5 nerve root. No central spinal canal stenosis. Also noted is a superimposed right foraminal disc protrusion which abuts the exiting right L4 nerve root. Mild bilateral facet arthropathy contributes to moderate neural foraminal narrowing. L5-S1: Broad-based central disc protrusion indents the ventral thecal sac with mild spinal canal stenosis. Also noted are superimposed right foraminal and far lateral disc protrusion which abuts the exiting right L5 nerve root. Moderate bilateral facet arthropathy contribute to severe right and [id number] left foraminal narrowing. OTHER FINDINGS: None. IMPRESSION: 1. Interval progression of degenerative disc disease at L4-5 with a left posterolateral disc extrusion an approximately 13 mm caudal migration of extruded fragment with impingement on the traversing left L5 nerve root. Also noted is a right foraminal disc protrusion which abuts the exiting right L4 nerve root. No central spinal canal stenosis. 2. No change in broad-based central disc protrusion at L5-S1 with mild spinal canal stenosis. Right foraminal and far lateral disc protrusions abut the exiting right L5 nerve root. 3. Incompletely imaged and characterized 2.6 x 1.9 cm cystic lesion in the right iliopsoas. Dedicated MRI scan of the pelvis without and with intravenous contrast would be helpful for further characterization. Important findings were discussed with Dr. Korey Macedo on the floor on 06/06/2017 at 10:35 a.m.
--- NOTE | 2017-06-06 10:54 | RAD ---
PROCEDURE: Bilateral hand radiographs. HISTORY: edema, inability to close hands COMPARISON: None. FINDINGS: BONES: Right Hand: Mild osteoarthritic changes. Left Hand: Mild osteoarthritic changes. JOINTS: Right Hand: Mild proximal and distal interphalangeal joint space narrowing Left Hand: Mild proximal and distal interphalangeal joint space narrowing SOFT TISSUES: Right Hand: Minimal soft tissue swelling -appears most accentuated along the proximal interphalangeal joints Left Hand: Minimal soft tissue swelling mainly along the proximal interphalangeal joints OTHER FINDINGS: No gross erosions. Bilateral extra osseous periarticular soft tissue calcifications/tiny ossifications in each hand the right is is seen ulnar aspect 2nd digit distal interphalangeal joint. On the left 4th 5th digits, distal and proximal interphalangeal joints respectively. IMPRESSION: Bilateral threaded changes- no gross erosions. No prominent osteophytes, bilateral minimal osseous hypertrophic changes present. The proximal and distal interphalangeal joint spaces appear narrowed bilaterally. Bilateral extraosseous juxta articular small, 1 mm like calcifications/ossifications. Correlation with rheumatologic panel recommended. No cortical interruption. No aggressive periosteal reaction noted. No fractures. No fractures noted
--- NOTE | 2017-06-06 12:19 | CP.PCM.PN ---
Subjective - Date & Time of Evaluation Date of Evaluation: 06/06/17 Time of Evaluation: 08:00 - Subjective Subjective: seen on rounds IV rx in progress Objective - Vital Signs/Intake and Output Vital Signs (last 24 hours): Temp Pulse Resp BP Pulse Ox 97.4 F L 64 18 125/76 98 06/06/17 07:35 06/06/17 07:35 06/06/17 07:35 06/06/17 10:05 06/06/17 07:35 Intake and Output: 06/06/17 06/06/17 06:59 18:59 Intake Total 1300 800 Balance 1300 800 - Medications Medications: Current Medications Abacavir/Lamivudine/Zidovudine (Trizivir 300 Mg-150 Mg-300 Mg) 1 tab PO BID [facility] PRN Reason: Protocol Last Admin: 06/06/17 10:06 Dose: 1 tab Acetaminophen (Tylenol 325mg Tab) 650 mg PO Q6 PRN PRN Reason: Fever >100.4 F Last Admin: 06/06/17 10:06 Dose: 650 mg Enalapril Maleate (Vasotec) 20 mg PO DAILY [facility] Last Admin: 06/06/17 10:05 Dose: 20 mg Enoxaparin Sodium (Lovenox) 40 mg SC DAILY [facility] Last Admin: 06/06/17 10:07 Dose: 40 mg Famotidine (Pepcid) 20 mg PO BID [facility] Last Admin: 06/06/17 10:06 Dose: 20 mg Sodium Chloride (Sodium Chloride 0.9%) 1,000 mls @ 100 mls/hr IV .Q10H [facility] Last Admin: 06/06/17 04:34 Dose: 100 mls/hr Doxycycline Hyclate 100 mg/ (Sodium Chloride) 100 mls @ 100 mls/hr IVPB Q12H [facility] PRN Reason: Protocol Last Admin: 06/06/17 08:05 Dose: 100 mls/hr Ceftriaxone Sodium (Rocephin Iv 1 Gm Duplex) 50 mls @ 100 mls/hr IVPB DAILY [facility] PRN Reason: Protocol Last Admin: 06/06/17 10:07 Dose: 100 mls/hr Ketorolac Tromethamine (Toradol) 10 mg PO Q6 PRN PRN Reason: Pain, severe (8-10) Last Admin: 06/05/17 17:59 Dose: 10 mg Levetiracetam (Keppra) 500 mg PO BID [facility] Last Admin: 06/06/17 10:06 Dose: 500 mg Levothyroxine Sodium (Synthroid) 100 mcg PO DAILY@0630 [facility] Last Admin: 06/06/17 05:53 Dose: 100 mcg Nevirapine (Viramune) 200 mg PO BID [facility] PRN Reason: Protocol Last Admin: 06/06/17 10:06 Dose: 200 mg Pneumococcal Polyvalent Vaccine (Pneumovax 23 Vaccine) 0.5 ml IM .ONCE ONE Stop: 06/07/17 10:01 Pyridoxine HCl (Vitamin B6) 100 mg PO DAILY [facility] Last Admin: 06/06/17 10:06 Dose: 100 mg Saccharomyces Boulardii (Florastor) 250 mg PO BID [facility] Last Admin: 06/06/17 10:06 Dose: 250 mg Tamsulosin HCl (Flomax) 0.4 mg PO DAILY [facility] Last Admin: 06/06/17 10:06 Dose: 0.4 mg Temazepam (Restoril) 30 mg PO HS [facility] Last Admin: 06/05/17 22:28 Dose: 30 mg Topiramate (Topamax) 50 mg PO DAILY [facility] - Labs Labs: 06/06/17 08:11 06/06/17 08:11 - Constitutional Appears: Non-toxic, Chronically Ill - Head Exam Head Exam: NORMOCEPHALIC - Eye Exam Eye Exam: PERRL - ENT Exam ENT Exam: Mucous Membranes Dry - Neck Exam Neck Exam: absent: Lymphadenopathy, Thyromegaly - Respiratory Exam Respiratory Exam: Decreased Breath Sounds - Cardiovascular Exam Cardiovascular Exam: REGULAR RHYTHM, +S1, +S2 - GI/Abdominal Exam GI & Abdominal Exam: Distended, Soft. absent: Tenderness - Rectal Exam Rectal Exam: Deferred - Exam Exam: NORMAL INSPECTION - Extremities Exam Extremities Exam: absent: Calf Tenderness, Pedal Edema, Tenderness - Back Exam Back Exam: absent: CVA tenderness (L), CVA tenderness (R), paraspinal tenderness - Neurological Exam Neurological Exam: Alert, Awake, CN II-XII Intact, Oriented x3 Neuro motor strength exam: Left Upper Extremity: 5, Right Upper Extremity: 5, Left Lower Extremity: 5, Right Lower Extremity: 5 - Psychiatric Exam Psychiatric exam: Normal Mood - Skin Skin Exam: Dry Assessment and Plan (1) Fever Status: Acute (2) HIV disease Status: Acute (3) Influenza-like illness Status: Acute (4) Latent tuberculosis Status: Acute
[2017-06-06] MEDS ORDERED: Gadodiamide 287 mg/ml 20 ml IV ONE (12:22)
--- NOTE | 2017-06-06 16:01 | MRI ---
PROCEDURE: MRI pelvis HISTORY: lesion in right iliacus muscle COMPARISON: CT abdomen/ pelvis 06/04/2017 TECHNIQUE: Multiplanar, multi sequence imaging of the pelvis was performed both with and without intravenous gadolinium administration. FINDINGS: There is severe atrophy of the right psoas muscle. In retrospect, this was noted on MRI of the lumbar spine examination dated 10/03/2015. The gluteal musculature is symmetric and unremarkable. In the right iliacus muscle, at its medial extent, there is a tubular septated fluid signal mass extending along the muscle to the right hip joint, possibly representing an intramuscular ganglion cyst. This is best demonstrated on series 9, images 5-14. This does not extend along the tendon to the lesser trochanter and is not likely to reflect an ileo psoas tendonitis. There is no evidence of enhancement following gadolinium administration and this is felt unlikely to represent an inflammatory or infectious process. The possibility of a benign neoplasm of neural origin must be considered, but is less likely than an intramuscular ganglion cyst. There is no pelvic lymphadenopathy. There is no ascites. The urinary bladder is unremarkable. The prostate is grossly normal. The marrow signal of the visualized osseous structures is within normal limits. IMPRESSION: Tubular septated fluid signal nonenhancing mass along the medial border of the right iliacus muscle extending at least 8.5 cm, extending to the joint suggestive of an intramuscular ganglion cyst. No no enhancement following gadolinium administration. Severe chronic right psoas muscle atrophy incidentally noted.
[2017-06-06 17:06] LABS: RNP <1.0 AI (<1.0)
[2017-06-07] MEDS: Sodium Chloride 0.9% 1,000 ML IV SCH ×2 (02:12→12:38)
[2017-06-07] MEDS: Levothyroxine 100 MCG TAB PO SCH (05:34)
--- NOTE | 2017-06-07 07:18 | CP.PCM.PN ---
<Edith Montana V - Last Filed: 06/07/17 12:35> Objective - Vital Signs/Intake and Output Vital Signs (last 24 hours): Temp Pulse Resp BP Pulse Ox 98.4 F 76 18 130/82 97 06/07/17 07:00 06/07/17 07:00 06/07/17 07:00 06/07/17 09:23 06/07/17 07:00 Intake and Output: 06/07/17 06/07/17 06:59 18:59 Intake Total 1400 260 Balance 1400 260 - Medications Medications: Current Medications Abacavir/Lamivudine/Zidovudine (Trizivir 300 Mg-150 Mg-300 Mg) 1 tab PO BID [facility] PRN Reason: Protocol Last Admin: 06/07/17 09:23 Dose: 1 tab Acetaminophen (Tylenol 325mg Tab) 650 mg PO Q6 PRN PRN Reason: Fever >100.4 F Last Admin: 06/06/17 10:06 Dose: 650 mg Enalapril Maleate (Vasotec) 20 mg PO DAILY [facility] Last Admin: 06/07/17 09:23 Dose: 20 mg Enoxaparin Sodium (Lovenox) 40 mg SC DAILY [facility] Last Admin: 06/07/17 09:24 Dose: 40 mg Famotidine (Pepcid) 20 mg PO BID [facility] Last Admin: 06/07/17 09:22 Dose: 20 mg Gabapentin (Neurontin) 300 mg PO TID [facility] Doxycycline Hyclate 100 mg/ (Sodium Chloride) 100 mls @ 100 mls/hr IVPB Q12H [facility] PRN Reason: Protocol Last Admin: 06/07/17 08:20 Dose: 100 mls/hr Ceftriaxone Sodium (Rocephin Iv 1 Gm Duplex) 50 mls @ 100 mls/hr IVPB DAILY [facility] PRN Reason: Protocol Last Admin: 06/07/17 09:29 Dose: 100 mls/hr Isoniazid (Niazid) 300 mg PO DAILY [facility] PRN Reason: Protocol Last Admin: 06/07/17 09:22 Dose: 300 mg Ketorolac Tromethamine (Toradol) 10 mg PO Q6 PRN PRN Reason: Pain, severe (8-10) Last Admin: 06/07/17 09:23 Dose: 10 mg Levetiracetam (Keppra) 500 mg PO BID [facility] Last Admin: 06/07/17 09:23 Dose: 500 mg Levothyroxine Sodium (Synthroid) 100 mcg PO DAILY@0630 [facility] Last Admin: 06/07/17 05:34 Dose: 100 mcg Nevirapine (Viramune) 200 mg PO BID [facility] PRN Reason: Protocol Last Admin: 06/07/17 09:23 Dose: 200 mg Pyridoxine HCl (Vitamin B6) 100 mg PO DAILY [facility] Last Admin: 06/07/17 09:22 Dose: 100 mg Saccharomyces Boulardii (Florastor) 250 mg PO BID [facility] Last Admin: 06/07/17 09:22 Dose: 250 mg Tamsulosin HCl (Flomax) 0.4 mg PO DAILY [facility] Last Admin: 06/07/17 09:22 Dose: 0.4 mg Temazepam (Restoril) 30 mg PO HS [facility] Last Admin: 06/06/17 21:08 Dose: 30 mg Topiramate (Topamax) 50 mg PO DAILY [facility] Last Admin: 06/07/17 09:24 Dose: 50 mg - Labs Labs: 06/07/17 08:02 06/07/17 08:02 Attending/Attestation - Attestation I have personally seen and examined this patient.: Yes I have fully participated in the care of the patient.: Yes I have reviewed all pertinent clinical information, including history, physical exam and plan: Yes Notes (Text): Patient seen, examined and case discussed with clinical medical transcriptionist. Patient seen at bedside this morning. Patient complains of hand swelling bilaterally. I explained to the patient I cannot start steroid yet since he is fighting off pneumonia and we do not want to suppress his immune system. Patient reports has not had a bowel movement in two days. Patient reports he has not yet worked with physical therapy. I explained physical therapy attempted to work with him yesterday but he was gone for MRI at the time. Patient's T Max: 98.4 F today. We are awaiting 2 more samples of sputum to rule out active TB. We will continue IV abx. Awaiting PT/OT evaluation Blood and urine studies order to complete workup Assessment/Plan 1.) Fever of unknown Origin Suspected Bronchopneumonia * ID consult, Dr. Roman, help appreciated * Rheumatology consult, Dr. Hightower, help appreciated * Pulmonology consult, Dr. Borrero, help appreciated * Airborne Isolation * 06/05/17 Mycobacterial culture: no acid fast bacilli; pending 2 more samples * 06/06/17 Sputum Culture: pending * Chest X-ray: unremarkable * Chest CT w IV contrast (06/05/17): nodular groundglass opacities in the right upper lobe with mixed groundglass and tree in bud pattern of inflammatory changes in the left lower lobe. Bronchopneumonia. 3 liver lesions ~ possible hemiangioma. Epicardial calcification likely no clinical significance for patient * CT abd/pelvis w. IV contrast (06/04/17): limited evaluation of the lung bases. Evaluation limited by respiratory motion artifact. Hazy patchy opacity in left lower lung field. Partial visualization of minimal opacity in the right middle lobe. Pleural-based masslike focus measuring up to 2cm, may represent scarring but cannot exclude true nodule. Appearance concerning for pneumonic infiltrate. Correlate clinically. F/u w dedicated imaging recommended. * Tylenol 650mg q6 prn for fever * Rocephin 1 gm IV daily (active since 06/05/17) * Doxycycline 100 mg IV Q12H (active since 06/05/17) * Procalcitonin: low * ESR and CRP elevated * LDH normal * Order for blood cultures, and UA/Urine Culture to complete workup 2.)Latent tuberculosis History of Quantiferon Gold + * ID consult, Dr. Roman, help appreciated * Resumed INH 300mg PO daily (started on May 25) * Vitamin B6 100 mg PO daily for prophylaxis while on INH * Check given possible drug induce lupus f/u anti-histone ab * Airborne Isolation * 06/05/17 Mycobacterial culture: no acid fast bacilli; pending 2 more samples * Chest CT w IV contrast (06/05/17): nodular groundglass opacities in the right upper lobe with mixed groundglass and tree in bud pattern of inflammatory changes in the left lower lobe. Bronchopneumonia. 3 liver lesions ~ possible hemiangioma. Epicardial calcification likely no clinical significance for patient 3.) Herniated Discs Lumbago Lumbar Nerve Impingement * Rheumatoid Factor + * ESR and CRP elevated. Procalcitonin is low. * MRI (06/06/17): interval progession of degenerative disc disease at L4-L5 with a left posterolateral disc extrusion an approximately 11mm caudal migration of extruded fragment with impingement of the transversing left L5 nerve azul. Right foraminal disc protrusion abuts right L4 nerve root. No central spinal canal stenosis. No change in broad based central disc protusion L5-S1 w mild spinal canal stenosis. further findings per report * Pending Pelvic MRI to characterize abnormality * Pelvic MRI (06/06/17): tubular septate fluid signal nonenhancing mass along the medial border of the right iliacus muscle extending at least 8.5cm, intramuscular ganglion cyst. No no enhancement following gadolinium administation. severe chronic right psoas muscle atrophy incidentally noted. * PT/OT eval * Increase Gabapentin 300mg PO TID 4.) Elevated MCV * possibly secondary to HIV medication * B12 is 366 5.) History of HIV * Infectious Disease on the case->help appreciated * CD 4 count (03/18/17): 1502 * Resume Viramune 200mg PO BID * Resume Trizivir 1 tablet BID 6.) History of BPH * Resumed Flomax .4mg po daily * Dutasteride 0.5 mg daily is not formulary--switched to Finasteride 5 mg PO daily 7.) History of Hypertension * Home med Quinapril 40 is not formulary--switched to Vasotec 20 mg PO daily 8.) History of Hypothyroid * TSH 1.13 and free T4 0.89 * Resumed home Synthroid 100 mcg daily 9) History of Arthritis * Rheumatology consult, Dr. Hightower, help appreciated * Unable to see the patient; he does not have contrast with [facility], [place] * Rheumatoid Factor + * CCP IgG <16 * RYAN: negative * SS-A < 1.0 negative * SS-B < 1.0 negative * [employer] Antibody < 1.0 negative * Anti-double stranded DNA: 1 * Hand Xrays (06/05/17): * Right Hand: mild osteoarthritic changes, mild proximal and distal interphalangeal joint space narrowing.Minimal soft tissue swelling--Appears most accentuated along the proximal interphalangeal joints. * Left Hand: mild osteoarthritic changes, mild proximal and distal interphalangeal joint space narrowing.Minimal soft tissue swelling--Appears most accentuated along the proximal interphalangeal joints. * Other findings: b/l estraosseous periarticular soft tissue calcifications/ tiny ossifications in each hand the right is seen ulnar aspect 2nd digit distal interphalangeal joint. On the left 4th/5th digits, distal and proximal interphalangeal joints.. No cortical interruption. No aggresive periosteal reaction noted. No fractures noted. 10) History of Brain Aneurysm (2004) * Brain clip placed in 2004 at [facility] in [place], [place] * Topamax 50mg PO daily * Keppra 500mg PO BID 11.) Prophylaxis * SCDs * Pepcid 20mg PO BID * Lovenox 40mg subq daily <Pankaj Ochoa - Last Filed: 06/07/17 14:00> Subjective - Date & Time of Evaluation Date of Evaluation: 06/07/17 Time of Evaluation: 07:30 - Subjective Subjective: Medicine progress note for Dr. Montana Patient seen and examined. Patient reports not much interval change in his hand and back pains. Patient does deny fevers, chills at this time. He is still producing yellow sputum, and he is also complaining of 2 days of constipation. Patient has no other acute complaints at this time. Objective - Vital Signs/Intake and Output Vital Signs (last 24 hours): Temp Pulse Resp BP Pulse Ox 97.6 F 73 20 125/72 96 06/06/17 23:25 06/06/17 23:25 06/06/17 23:25 06/06/17 23:25 06/06/17 23:25 Intake and Output: 06/07/17 06/07/17 06:59 18:59 Intake Total 1400 Balance 1400 - Medications Medications: Current Medications Abacavir/Lamivudine/Zidovudine (Trizivir 300 Mg-150 Mg-300 Mg) 1 tab PO BID [facility] PRN Reason: Protocol Last Admin: 06/06/17 17:26 Dose: 1 tab Acetaminophen (Tylenol 325mg Tab) 650 mg PO Q6 PRN PRN Reason: Fever >100.4 F Last Admin: 06/06/17 10:06 Dose: 650 mg Enalapril Maleate (Vasotec) 20 mg PO DAILY [facility] Last Admin: 06/06/17 10:05 Dose: 20 mg Enoxaparin Sodium (Lovenox) 40 mg SC DAILY [facility] Last Admin: 06/06/17 10:07 Dose: 40 mg Famotidine (Pepcid) 20 mg PO BID [facility] Last Admin: 06/06/17 17:26 Dose: 20 mg Gabapentin (Neurontin) 300 mg PO BID [facility] Last Admin: 06/06/17 17:26 Dose: 300 mg Sodium Chloride (Sodium Chloride 0.9%) 1,000 mls @ 100 mls/hr IV .Q10H [facility] Last Admin: 06/07/17 02:12 Dose: Not Given Doxycycline Hyclate 100 mg/ (Sodium Chloride) 100 mls @ 100 mls/hr IVPB Q12H [facility] PRN Reason: Protocol Last Admin: 06/06/17 20:06 Dose: 100 mls/hr Ceftriaxone Sodium (Rocephin Iv 1 Gm Duplex) 50 mls @ 100 mls/hr IVPB DAILY [facility] PRN Reason: Protocol Last Admin: 06/06/17 10:07 Dose: 100 mls/hr Ketorolac Tromethamine (Toradol) 10 mg PO Q6 PRN PRN Reason: Pain, severe (8-10) Last Admin: 06/06/17 14:25 Dose: 10 mg Levetiracetam (Keppra) 500 mg PO BID [facility] Last Admin: 06/06/17 17:26 Dose: 500 mg Levothyroxine Sodium (Synthroid) 100 mcg PO DAILY@0630 [facility] Last Admin: 06/07/17 05:34 Dose: 100 mcg Nevirapine (Viramune) 200 mg PO BID [facility] PRN Reason: Protocol Last Admin: 06/06/17 17:26 Dose: 200 mg Pneumococcal Polyvalent Vaccine (Pneumovax 23 Vaccine) 0.5 ml IM .ONCE ONE Stop: 06/07/17 10:01 Pyridoxine HCl (Vitamin B6) 100 mg PO DAILY [facility] Last Admin: 06/06/17 10:06 Dose: 100 mg Saccharomyces Boulardii (Florastor) 250 mg PO BID [facility] Last Admin: 06/06/17 17:26 Dose: 250 mg Tamsulosin HCl (Flomax) 0.4 mg PO DAILY [facility] Last Admin: 06/06/17 10:06 Dose: 0.4 mg Temazepam (Restoril) 30 mg PO HS [facility] Last Admin: 06/06/17 21:08 Dose: 30 mg Topiramate (Topamax) 50 mg PO DAILY [facility] - Labs Labs: 06/06/17 08:11 06/06/17 08:11 - Additional Findings Additional findings: - Constitutional Appears: No Acute Distress - Head Exam Head Exam: ATRAUMATIC, NORMOCEPHALIC - Eye Exam Eye Exam: EOMI, Normal appearance - ENT Exam ENT Exam: Mucous Membranes Moist - Respiratory Exam Respiratory Exam: Decreased Breath Sounds, Clear to Ausculation Bilateral, NORMAL BREATHING PATTERN. absent: Rales, Rhonchi, Wheezes - Cardiovascular Exam Cardiovascular Exam: REGULAR RHYTHM, +S1, +S2 - GI/Abdominal Exam GI & Abdominal Exam: Soft, Normal Bowel Sounds. absent: Distended, Guarding, Tenderness - Extremities Exam Extremities Exam: absent: Pedal Edema, Tenderness Additional comments: Some edema of the fingers bilaterally is noted. No obvious joint deformity was palpated. - Back Exam Additional comments: Upper and lower back tenderness in a non-specific pattern both vertebral and paraspinal No obvious bony deformities palpated - Neurological Exam Neurological Exam: Alert, Awake, CN II-XII Intact, Oriented x3 - Psychiatric Exam Psychiatric exam: Anxious - Skin Skin Exam: Dry, Warm Assessment and Plan - Assessment and Plan (Free Text) Plan: 1.) Fever of unknown Origin ID consult, Dr. Roman, help appreciated Rheumatology consult, Dr. Hightower, help appreciated Pulmonology consult, Dr. Borrero, help appreciated Airborne Isolation Chest X-ray: unremarkable Chest CT w. IV contrast: * 1. Nodular groundglass opacities in the right upper lobe with mixed groundglass and tree in bud pattern of inflammatory changes in the left lower lobe. Findings suggest bronchopneumonia. * 2. Three liver lesions. They are not fully characterized on this exam. There are findings that suggest presence of a hemangioma. MR of the liver could be performed for definitive characterization. * 3. Epicardial calcification likely of no clinical significance 2 the patient. This may be a calcified lymph node or residual of previous granulomatous disease. CT abd/pelvis w. IV contrast: * Limited evaluation of the lung bases. Evaluation limited by respiratory motion artifact. Hazy patchy opacity in the left lower lung field. Partial visualization of minimal opacity in the right middle lobe. Pleural-based masslike focus measuring up to 2 cm, may represent scarring but cannot exclude true nodule. Tylenol 650mg q6 prn for fever [facility] Rocephin 1 gm IV daily [facility] Doxycycline [address] Roman, patient has had 2 Z-packs recently for illness. Continue present antibiotics. f/u sputum culture 2.) Quantiferon Gold + Resumed INH 300mg daily (started on May 25) f/u anti-histone ab Airborne Isolation f/u mycobateria sputum culture x3--first is negative Added vitamin B6 100 mg PO daily 3.) New onset Back pain Rheumatoid Factor + ESR and CRP elevated. Procalcitonin is low. Lumbar spine MRI * 1. Interval progression of degenerative disc disease at L4-5 with a left posterolateral disc extrusion an approximately 13 mm caudal migration of extruded fragment with impingement on the traversing left L5 nerve root. Also noted is a right foraminal disc protrusion which abuts the exiting right L4 nerve root. No central spinal canal stenosis. * 2. No change in broad-based central disc protrusion at L5-S1 with mild spinal canal stenosis. Right foraminal and far lateral disc protrusions abut the exiting right L5 nerve root. * 3. Incompletely imaged and characterized 2.6 x 1.9 cm cystic lesion in the right iliopsoas. Dedicated MRI scan of the pelvis without and with intravenous contrast would be helpful for further characterization. Pelvis MRI demonstrates ganglion cyst and chronic right psoas atrophy Home med Etodolac 400 mg BID is not formulary--switched to Toradol 10 mg PO Q6 prn Autoimmune workup including RYAN with reflexes negative thus far 4.) Hand swelling and pain Bilateral hand X-rays: Bilateral threaded changes- no gross erosions. No prominent osteophytes, bilateral minimal osseous hypertrophic changes present. The proximal and distal interphalangeal joint spaces appear narrowed bilaterally. Bilateral extraosseous juxta articular small, 1 mm like calcifications/ossifications. Correlation with rheumatologic panel recommended. No cortical interruption. No aggressive periosteal reaction noted. No fractures. rheumatology workup negative so far Started Gabapentin 300 mg PO TID 5.) History of Epilepsy Resumed home Keppra 500 mg PO BID Resumed home Topamax 50 mg PO daily 6.) Elevated MCV possibly secondary to HIV medication B12 is 366 7.) History of HIV CD 4 count (03/18/17): 1502 Resume Viramune 200mg PO BID Resume Trizivir 1 tablet BID 8.) History of BPH Resumed Flomax .4mg po daily Dutasteride 0.5 mg daily is not formulary--switched to Finasteride 5 mg PO daily 9.) History of HTN Home med Quinapril 40 is not formulary--switched to Vasotec 20 mg PO daily 10.) History of Hypothyroid TSH 1.13 and free T4 0.89 Resumed home Synthroid 100 mcg daily 11.) Prophylaxis SCDs Pepcid 20mg PO BID Discussed with Dr. Nan Ochoa PGY-1
[2017-06-07 08:15] LABS: BASO % 0.5 % (0.0-2.0); EOS # 0.2 K/uL (0.0-0.7); EOS % 4.8 % (0.0-4.0); HEMOGLOBIN 12.9 g/dL (12.0-18.0); LYMPH # 1.7 K/uL (1.0-4.3); LYMPH % 38.8 % (20.0-40.0); MEAN CELL VOLUME 107.8 fL (80.0-94.0); MEAN CORPUSCULAR HEMOGLOBIN 37.9 pg (27.0-31.0); MEAN CORPUSCULAR HGB CONC 35.2 g/dL (33.0-37.0); MEAN PLATELET VOLUME 8.9 fL (7.2-11.7); MONO # 0.3 K/uL (0.0-0.8); MONO % 6.3 % (0.0-10.0); NEUT # 2.1 K/uL (1.8-7.0); NEUT % 49.6 % (50.0-75.0); NRBC % 0.3 % (0.0-2.0); RBC 3.39 Mil/uL (4.40-5.90); RED CELL DISTRIBUTION WIDTH 13.1 % (11.5-14.5); WHITE BLOOD COUNT 4.3 K/uL (4.8-10.8)
[2017-06-07 08:35] LABS: ALB/GLOB RATIO 1.1 (1.0-2.1); ALBUMIN 3.8 g/dL (3.5-5.0); ALT/SGPT 24 U/L (21-72); AST/SGOT 26 U/L (17-59); BLOOD UREA NITROGEN 8 mg/dL (9-20); CALCIUM 9.1 mg/dl (8.6-10.4); GFR AFRICAN-AMERICAN > 60; GFR NON-AFRICAN AMERICAN > 60
[2017-06-07] MEDS: Pyridoxine 100 mg Tab PO SCH (09:22)
[2017-06-07] MEDS: Saccharomyces Boulardi 250 mg Cap PO SCH ×2 (09:22→17:28)
[2017-06-07] MEDS: Abacavir/Lamivudine/Zidovudine 300 mg-150mg- 300 mg Tab PO SCH ×2 (09:23→17:28)
[2017-06-07] MEDS: Enoxaparin 40 mg Syringe SC SCH (09:24)
[2017-06-07] MEDS: cefTRIAXone IV 1 gm in Dextros 50 ML IVPB SCH (09:29)
[2017-06-07] MEDS ORDERED: Pneumococcal 23-Valent Vaccine IM ONE (10:00)
[2017-06-07] MEDS ORDERED: Bisacodyl 5mg EC Tab PO ONE (11:59)
[2017-06-07 14:09] LABS: URINE BILIRUBIN NEGATIVE (NEGATIVE); URINE BLOOD NEGATIVE (NEGATIVE); URINE CLARITY Clear (Clear); URINE COLOR Straw (YELLOW); URINE GLUCOSE (UA) NORMAL (Normal); URINE LEUKOCYTE ESTERASE NEG Leu/uL (Negative); URINE PROTEIN NEGATIVE (NEGATIVE); URINE UROBILINOGEN NORMAL mg/dL (0.2-1.0)
--- NOTE | 2017-06-07 15:41 | CP.PCM.PN ---
Subjective - Date & Time of Evaluation Date of Evaluation: 06/07/17 Time of Evaluation: 08:00 - Subjective Subjective: off airborne iso cont iv antibiotics Objective - Vital Signs/Intake and Output Vital Signs (last 24 hours): Temp Pulse Resp BP Pulse Ox 98.4 F 76 18 130/82 97 06/07/17 07:00 06/07/17 07:00 06/07/17 07:00 06/07/17 09:23 06/07/17 07:00 Intake and Output: 06/07/17 06/07/17 06:59 18:59 Intake Total 1400 940 Balance 1400 940 - Medications Medications: Current Medications Abacavir/Lamivudine/Zidovudine (Trizivir 300 Mg-150 Mg-300 Mg) 1 tab PO BID [facility] PRN Reason: Protocol Last Admin: 06/07/17 09:23 Dose: 1 tab Acetaminophen (Tylenol 325mg Tab) 650 mg PO Q6 PRN PRN Reason: Fever >100.4 F Last Admin: 06/06/17 10:06 Dose: 650 mg Enalapril Maleate (Vasotec) 20 mg PO DAILY [facility] Last Admin: 06/07/17 09:23 Dose: 20 mg Enoxaparin Sodium (Lovenox) 40 mg SC DAILY [facility] Last Admin: 06/07/17 09:24 Dose: 40 mg Famotidine (Pepcid) 20 mg PO BID [facility] Last Admin: 06/07/17 09:22 Dose: 20 mg Gabapentin (Neurontin) 300 mg PO TID [facility] Last Admin: 06/07/17 14:18 Dose: 300 mg Doxycycline Hyclate 100 mg/ (Sodium Chloride) 100 mls @ 100 mls/hr IVPB Q12H [facility] PRN Reason: Protocol Last Admin: 06/07/17 08:20 Dose: 100 mls/hr Ceftriaxone Sodium (Rocephin Iv 1 Gm Duplex) 50 mls @ 100 mls/hr IVPB DAILY [facility] PRN Reason: Protocol Last Admin: 06/07/17 09:29 Dose: 100 mls/hr Isoniazid (Niazid) 300 mg PO DAILY [facility] PRN Reason: Protocol Last Admin: 06/07/17 09:22 Dose: 300 mg Ketorolac Tromethamine (Toradol) 10 mg PO Q6 PRN PRN Reason: Pain, severe (8-10) Last Admin: 06/07/17 09:23 Dose: 10 mg Levetiracetam (Keppra) 500 mg PO BID [facility] Last Admin: 06/07/17 09:23 Dose: 500 mg Levothyroxine Sodium (Synthroid) 100 mcg PO DAILY@0630 [facility] Last Admin: 06/07/17 05:34 Dose: 100 mcg Nevirapine (Viramune) 200 mg PO BID [facility] PRN Reason: Protocol Last Admin: 06/07/17 09:23 Dose: 200 mg Pyridoxine HCl (Vitamin B6) 100 mg PO DAILY [facility] Last Admin: 06/07/17 09:22 Dose: 100 mg Saccharomyces Boulardii (Florastor) 250 mg PO BID [facility] Last Admin: 06/07/17 09:22 Dose: 250 mg Tamsulosin HCl (Flomax) 0.4 mg PO DAILY [facility] Last Admin: 06/07/17 09:22 Dose: 0.4 mg Temazepam (Restoril) 30 mg PO HS [facility] Last Admin: 06/06/17 21:08 Dose: 30 mg Topiramate (Topamax) 50 mg PO DAILY [facility] Last Admin: 06/07/17 09:24 Dose: 50 mg - Labs Labs: 06/07/17 08:02 06/07/17 08:02 - Constitutional Appears: Non-toxic, Chronically Ill - Head Exam Head Exam: NORMOCEPHALIC - Eye Exam Eye Exam: PERRL - ENT Exam ENT Exam: Mucous Membranes Dry - Neck Exam Neck Exam: absent: Lymphadenopathy - Respiratory Exam Respiratory Exam: Decreased Breath Sounds - Cardiovascular Exam Cardiovascular Exam: REGULAR RHYTHM - GI/Abdominal Exam GI & Abdominal Exam: Distended, Soft Assessment and Plan (1) Fever Status: Acute (2) HIV disease Status: Acute (3) Influenza-like illness Status: Acute (4) Latent tuberculosis Status: Acute
[2017-06-08] MEDS: Levothyroxine 100 MCG TAB PO SCH (05:37)
--- NOTE | 2017-06-08 07:03 | CP.PCM.PN ---
Subjective - Date & Time of Evaluation Date of Evaluation: 06/08/17 Time of Evaluation: 07:30 - Subjective Subjective: Medicine progress note for Dr. [place] Patient seen and examined. Objective - Vital Signs/Intake and Output Vital Signs (last 24 hours): Temp Pulse Resp BP Pulse Ox 98.9 F 82 20 112/68 98 06/08/17 00:00 06/08/17 00:00 06/08/17 00:00 06/08/17 00:00 06/08/17 00:00 Intake and Output: 06/08/17 06/08/17 06:59 18:59 Intake Total 50 Balance 50 - Medications Medications: Current Medications Abacavir/Lamivudine/Zidovudine (Trizivir 300 Mg-150 Mg-300 Mg) 1 tab PO BID RICHARD PRN Reason: Protocol Last Admin: 06/07/17 17:28 Dose: 1 tab Acetaminophen (Tylenol 325mg Tab) 650 mg PO Q6 PRN PRN Reason: Fever >100.4 F Last Admin: 06/06/17 10:06 Dose: 650 mg Enalapril Maleate (Vasotec) 20 mg PO DAILY [facility] Last Admin: 06/07/17 09:23 Dose: 20 mg Enoxaparin Sodium (Lovenox) 40 mg SC DAILY [facility] Last Admin: 06/07/17 09:24 Dose: 40 mg Famotidine (Pepcid) 20 mg PO BID [facility] Last Admin: 06/07/17 17:28 Dose: 20 mg Gabapentin (Neurontin) 300 mg PO TID [facility] Last Admin: 06/07/17 17:28 Dose: 300 mg Doxycycline Hyclate 100 mg/ (Sodium Chloride) 100 mls @ 100 mls/hr IVPB Q12H RICHARD PRN Reason: Protocol Last Admin: 06/07/17 21:07 Dose: 100 mls/hr Ceftriaxone Sodium (Rocephin Iv 1 Gm Duplex) 50 mls @ 100 mls/hr IVPB DAILY RICHARD PRN Reason: Protocol Last Admin: 06/07/17 09:29 Dose: 100 mls/hr Isoniazid (Niazid) 300 mg PO DAILY RICHARD PRN Reason: Protocol Last Admin: 06/07/17 09:22 Dose: 300 mg Ketorolac Tromethamine (Toradol) 10 mg PO Q6 PRN PRN Reason: Pain, severe (8-10) Last Admin: 06/07/17 21:12 Dose: 10 mg Levetiracetam (Keppra) 500 mg PO BID [facility] Last Admin: 06/07/17 17:28 Dose: 500 mg Levothyroxine Sodium (Synthroid) 100 mcg PO DAILY@0630 [facility] Last Admin: 06/08/17 05:37 Dose: 100 mcg Nevirapine (Viramune) 200 mg PO BID [facility] PRN Reason: Protocol Last Admin: 06/07/17 17:28 Dose: 200 mg Pyridoxine HCl (Vitamin B6) 100 mg PO DAILY [facility] Last Admin: 06/07/17 09:22 Dose: 100 mg Saccharomyces Boulardii (Florastor) 250 mg PO BID [facility] Last Admin: 06/07/17 17:28 Dose: 250 mg Tamsulosin HCl (Flomax) 0.4 mg PO DAILY [facility] Last Admin: 06/07/17 09:22 Dose: 0.4 mg Temazepam (Restoril) 30 mg PO HS [facility] Last Admin: 06/07/17 21:08 Dose: 30 mg Topiramate (Topamax) 50 mg PO DAILY [facility] Last Admin: 06/07/17 09:24 Dose: 50 mg - Labs Labs: 06/07/17 08:02 06/07/17 08:02 - Additional Findings Additional findings: - Constitutional Appears: No Acute Distress - Head Exam Head Exam: ATRAUMATIC, NORMOCEPHALIC - Eye Exam Eye Exam: EOMI, Normal appearance - ENT Exam ENT Exam: Mucous Membranes Moist - Respiratory Exam Respiratory Exam: Decreased Breath Sounds, Clear to Ausculation Bilateral, NORMAL BREATHING PATTERN. absent: Rales, Rhonchi, Wheezes - Cardiovascular Exam Cardiovascular Exam: REGULAR RHYTHM, +S1, +S2 - GI/Abdominal Exam GI & Abdominal Exam: Soft, Normal Bowel Sounds. absent: Distended, Guarding, Tenderness - Extremities Exam Extremities Exam: absent: Pedal Edema, Tenderness Additional comments: Some edema of the fingers bilaterally is noted. No obvious joint deformity was palpated. - Back Exam Additional comments: Upper and lower back tenderness in a non-specific pattern both vertebral and paraspinal No obvious bony deformities palpated - Neurological Exam Neurological Exam: Alert, Awake, CN II-XII Intact, Oriented x3 - Psychiatric Exam Psychiatric exam: Anxious - Skin Skin Exam: Dry, Warm Assessment and Plan - Assessment and Plan (Free Text) Plan: 1.) Fever of unknown Origin ID consult, Dr. Roman, help appreciated Rheumatology consult, Dr. Hightower, help appreciated Pulmonology consult, Dr. Borrero, help appreciated Airborne Isolation Chest X-ray: unremarkable Chest CT w. IV contrast: * 1. Nodular groundglass opacities in the right upper lobe with mixed groundglass and tree in bud pattern of inflammatory changes in the left lower lobe. Findings suggest bronchopneumonia. * 2. Three liver lesions. They are not fully characterized on this exam. There are findings that suggest presence of a hemangioma. MR of the liver could be performed for definitive characterization. * 3. Epicardial calcification likely of no clinical significance 2 the patient. This may be a calcified lymph node or residual of previous granulomatous disease. CT abd/pelvis w. IV contrast: * Limited evaluation of the lung bases. Evaluation limited by respiratory motion artifact. Hazy patchy opacity in the left lower lung field. Partial visualization of minimal opacity in the right middle lobe. Pleural-based masslike focus measuring up to 2 cm, may represent scarring but cannot exclude true nodule. Tylenol 650mg q6 prn for fever Empiric Rocephin 1 gm IV daily Empiric Doxycycline 100 [address] Q[address] Roman, patient has had 2 Z-packs recently for illness. Continue present antibiotics. f/u sputum culture 2.) Quantiferon Gold + Resumed INH 300mg daily (started on May 25) Airborne Isolation f/u mycobateria sputum culture x3--first and second are negative Added vitamin B6 100 mg PO daily 3.) New onset Back pain Rheumatoid Factor + ESR and CRP elevated. Procalcitonin is low. Lumbar spine MRI * 1. Interval progression of degenerative disc disease at L4-5 with a left posterolateral disc extrusion an approximately 13 mm caudal migration of extruded fragment with impingement on the traversing left L5 nerve root. Also noted is a right foraminal disc protrusion which abuts the exiting right L4 nerve root. No central spinal canal stenosis. * 2. No change in broad-based central disc protrusion at L5-S1 with mild spinal canal stenosis. Right foraminal and far lateral disc protrusions abut the exiting right L5 nerve root. * 3. Incompletely imaged and characterized 2.6 x 1.9 cm cystic lesion in the right iliopsoas. Dedicated MRI scan of the pelvis without and with intravenous contrast would be helpful for further characterization. Pelvis MRI demonstrates ganglion cyst and chronic right psoas atrophy Home med Etodolac 400 mg BID is not formulary--switched to Toradol 10 mg PO Q6 prn Autoimmune workup including RYAN with reflexes negative thus far 4.) Hand swelling and pain Bilateral hand X-rays: Bilateral threaded changes- no gross erosions. No prominent osteophytes, bilateral minimal osseous hypertrophic changes present. The proximal and distal interphalangeal joint spaces appear narrowed bilaterally. Bilateral extraosseous juxta articular small, 1 mm like calcifications/ossifications. Correlation with rheumatologic panel recommended. No cortical interruption. No aggressive periosteal reaction noted. No fractures. rheumatology workup negative so far Started Gabapentin 300 mg PO TID 5.) History of Epilepsy Resumed home Keppra 500 mg PO BID Resumed home Topamax 50 mg PO daily 6.) Elevated MCV possibly secondary to HIV medication B12 is 366 7.) History of HIV CD 4 count (03/18/17): 1502 Resume Viramune 200mg PO BID Resume Trizivir 1 tablet BID 8.) History of BPH Resumed Flomax .4mg po daily Dutasteride 0.5 mg daily is not formulary--switched to Finasteride 5 mg PO daily 9.) History of HTN Home med Quinapril 40 is not formulary--switched to Vasotec 20 mg PO daily 10.) History of Hypothyroid TSH 1.13 and free T4 0.89 Resumed home Synthroid 100 mcg daily 11.) Prophylaxis SCDs Pepcid 20mg PO BID
[2017-06-08 07:44] LABS: BASO % 0.4 % (0.0-2.0); EOS # 0.2 K/uL (0.0-0.7); EOS % 3.4 % (0.0-4.0); HEMOGLOBIN 13.2 g/dL (12.0-18.0); LYMPH # 1.8 K/uL (1.0-4.3); LYMPH % 33.3 % (20.0-40.0); MEAN CELL VOLUME 106.7 fL (80.0-94.0); MEAN CORPUSCULAR HGB CONC 34.7 g/dL (33.0-37.0); MONO # 0.5 K/uL (0.0-0.8); MONO % 8.6 % (0.0-10.0); NEUT % 54.3 % (50.0-75.0); NRBC % 0.1 % (0.0-2.0); RBC 3.57 Mil/uL (4.40-5.90); RED CELL DISTRIBUTION WIDTH 13.4 % (11.5-14.5); WHITE BLOOD COUNT 5.5 K/uL (4.8-10.8)
[2017-06-08 08:00] LABS: ALB/GLOB RATIO 1.1 (1.0-2.1); ALBUMIN 3.9 g/dL (3.5-5.0); ALT/SGPT 27 U/L (21-72); AST/SGOT 30 U/L (17-59); BLOOD UREA NITROGEN 12 mg/dL (9-20); CALCIUM 8.6 mg/dl (8.6-10.4); GFR AFRICAN-AMERICAN > 60; GFR NON-AFRICAN AMERICAN > 60
[2017-06-08] MEDS: Saccharomyces Boulardi 250 mg Cap PO SCH (09:13)
[2017-06-08] MEDS: Pyridoxine 100 mg Tab PO SCH (09:13)
[2017-06-08] MEDS: Abacavir/Lamivudine/Zidovudine 300 mg-150mg- 300 mg Tab PO SCH (09:14)
[2017-06-08] MEDS: Enoxaparin 40 mg Syringe SC SCH (09:14)
[2017-06-08] MEDS: cefTRIAXone IV 1 gm in Dextros 50 ML IVPB SCH (09:27)
[2017-06-08 13:57] LABS: ALDOLASE 3.4 U/L (<=8.1)
--- NOTE | 2017-06-08 15:06 | CP.PCM.DIS ---
<Pankaj Ochoa - Last Filed: 06/08/17 16:05> Provider - Provider Date of Admission: 06/04/17 18:18 Attending physician: Edith Montana DO Primary care physician: Dr. Roman Consults: Infectious Disease: Dr. Roman Rheumatology: Dr. Hightower Pulmonology: Dr. Borrero Time Spent in preparation of Discharge (in minutes): 45 Diagnosis - Discharge Diagnosis (1) Fever of unknown origin Status: Acute Priority: High (2) Bronchopneumonia Status: Acute Priority: High (3) Latent tuberculosis Status: Chronic Priority: High (4) HIV disease Status: Chronic Priority: Medium (5) Lumbago Status: Acute Priority: High (6) Osteoarthritis Status: Chronic Priority: High (7) Hypertension Status: Chronic Priority: Low (8) BPH (benign prostatic hyperplasia) Status: Chronic Priority: Low (9) Hypothyroidism Status: Chronic Priority: Low (10) Brain aneurysm Status: Chronic Priority: Low Hospital Course - Lab Results Lab Results: Micro Results 06/07/17 13:04 Blood Blood Culture - Preliminary NO GROWTH AFTER 24 HOURS 06/07/17 13:23 Urine Urine Culture - Final No Growth (<1,000 CFU/ML) 06/06/17 20:17 Sputum Gram Stain - Final 06/06/17 20:17 Sputum Sputum Culture - Final NORMAL ORAL BENEDICT 06/06/17 06:00 Other: Please Indicate Mycobacterial Culture - Preliminary 06/05/17 05:40 Other: Please Indicate Mycobacterial Culture - Preliminary Most Recent Lab Values WBC 5.5 K/uL (4.8-10.8) 06/08/17 07:13 RBC 3.57 Mil/uL (4.40-5.90) L 06/08/17 07:13 Hgb 13.2 g/dL (12.0-18.0) 06/08/17 07:13 Hct 38.1 % (35.0-51.0) 06/08/17 07:13 MCV 106.7 fL (80.0-94.0) H 06/08/17 07:13 MCH 37.0 pg (27.0-31.0) H 06/08/17 07:13 MCHC 34.7 g/dL (33.0-37.0) 06/08/17 07:13 RDW 13.4 % (11.5-14.5) 06/08/17 07:13 Plt Count 251 K/uL (130-400) 06/08/17 07:13 MPV 9.0 fL (7.2-11.7) 06/08/17 07:13 Neut % (Auto) 54.3 % (50.0-75.0) 06/08/17 07:13 Lymph % (Auto) 33.3 % (20.0-40.0) 06/08/17 07:13 Treasure % (Auto) 8.6 % (0.0-10.0) 06/08/17 07:13 Eos % (Auto) 3.4 % (0.0-4.0) 06/08/17 07:13 Baso % (Auto) 0.4 % (0.0-2.0) 06/08/17 07:13 Neut # (Auto) 3.0 K/uL (1.8-7.0) 06/08/17 07:13 Lymph # (Auto) 1.8 K/uL (1.0-4.3) 06/08/17 07:13 Treasure # (Auto) 0.5 K/uL (0.0-0.8) 06/08/17 07:13 Eos # (Auto) 0.2 K/uL (0.0-0.7) 06/08/17 07:13 Baso # (Auto) 0.0 K/uL (0.0-0.2) 06/08/17 07:13 Differential Comment 06/08/17 07:13 ESR 55 mm/hr (0-15) H 06/08/17 07:13 Sodium 142 mmol/L (132-148) 06/08/17 07:13 Potassium 3.8 mmol/L (3.6-5.2) 06/08/17 07:13 Chloride 105 mmol/L (98-107) 06/08/17 07:13 Carbon Dioxide 21 mmol/L (22-30) L 06/08/17 07:13 Anion Gap 19 (10-20) 06/08/17 07:13 BUN 12 mg/dL (9-20) 06/08/17 07:13 Creatinine 0.6 mg/dL (0.8-1.5) L 06/08/17 07:13 Est GFR ( Amer) > 60 06/08/17 07:13 Est GFR (Non-Af Amer) > 60 06/08/17 07:13 Random Glucose 81 mg/dL (75-110) 06/08/17 07:13 Calcium 8.6 mg/dl (8.6-10.4) 06/08/17 07:13 Phosphorus 4.1 mg/dL (2.5-4.5) 06/08/17 07:13 Magnesium 1.9 mg/dL (1.6-2.3) 06/08/17 07:13 Total Bilirubin 0.4 mg/dL (0.2-1.3) 06/08/17 07:13 AST 30 U/L (17-59) 06/08/17 07:13 ALT 27 U/L (21-72) 06/08/17 07:13 Alkaline Phosphatase 83 U/L (38-126) 06/08/17 07:13 Lactate Dehydrogenase 431 U/L (313-618) 06/05/17 06:57 C-Reactive Protein 45.10 mg/L (0.0-9.9) H 06/06/17 08:11 C-React Prot High Sens > 15.00 mg/L (1.00-3.00) H 06/05/17 11:14 Total Protein 7.6 g/dL (6.3-8.3) 06/08/17 07:13 Albumin 3.9 g/dL (3.5-5.0) 06/08/17 07:13 Globulin 3.7 gm/dL (2.2-3.9) 06/08/17 07:13 Albumin/Globulin Ratio 1.1 (1.0-2.1) 06/08/17 07:13 Amylase 67 U/L (30-110) 06/05/17 11:14 Aldolase 3.4 U/L (<=8.1) 06/07/17 11:09 Vitamin B12 366 pg/mL (239-931) 06/05/17 06:57 Procalcitonin 0.09 NG/ML (0.19-0.49) L 06/05/17 08:23 Free T4 0.89 ng/dL (0.78-2.19) 06/05/17 06:57 TSH 3rd Generation 1.13 mIU/L (0.46-4.68) 06/05/17 06:57 Urine Color Straw (YELLOW) 06/07/17 13:56 Urine Clarity Clear (Clear) 06/07/17 13:56 Urine pH 7.0 (5.0-8.0) 06/07/17 13:56 Ur Specific Hughson 1.010 (1.003-1.030) 06/07/17 13:56 Urine Protein Negative mg/dL (NEGATIVE) 06/07/17 13:56 Urine Glucose (UA) Normal mg/dL (Normal) 06/07/17 13:56 Urine Ketones Negative mg/dL (NEGATIVE) 06/07/17 13:56 Urine Blood Negative (NEGATIVE) 06/07/17 13:56 Urine Nitrate Negative (NEGATIVE) 06/07/17 13:56 Urine Bilirubin Negative (NEGATIVE) 06/07/17 13:56 Urine Urobilinogen Normal mg/dL (0.2-1.0) 06/07/17 13:56 Ur Leukocyte Esterase Neg Carey/uL (Negative) 06/07/17 13:56 Urine WBC (Auto) < 1 /hpf (0-5) 06/07/17 13:56 Urine RBC (Auto) < 1 /hpf (0-3) 06/07/17 13:56 Cycl Citrul Peptide IgG <16 Units (<20) 06/05/17 11:14 RYAN Nuclear Membr Pat Negative (Negative) 06/05/17 06:57 SS-A Antibody <1.0 AI (<1.0) 06/05/17 11:14 SS-B Ab Interp Negative (Negative) 06/05/17 11:14 SS-B Antibody <1.0 AI (<1.0) 06/05/17 11:14 SS-B Ab Interp Negative (Negative) 06/05/17 11:14 OPTICAL INSTRUMENT ASSEMBLER Antibody <1.0 AI (<1.0) 06/05/17 11:14 OPTICAL INSTRUMENT ASSEMBLER Antibody Interp Negative (Negative) 06/05/17 11:14 Double Strand DNA Ab 1 IU/mL 06/05/17 11:14 Histone Antibodies <1.0 U (<1.0) 06/05/17 06:57 Hepatitis A IgM Ab Negative (NEGATIVE) 06/05/17 13:02 Hep Bs Antigen Negative (NEGATIVE) 06/05/17 13:02 Hep B Core IgM Ab Negative (NEGATIVE) 06/05/17 13:02 Hepatitis C Antibody Negative (NEGATIVE) 06/05/17 13:02 Influenza Typ A,B (EIA) Negative for flu a/b (NEGATIVE) 06/05/17 00:52 Anti-Staphylolysin O Negative (NEGATIVE) 06/05/17 11:14 - Hospital Course Hospital Course: Initial Note: "57 year old male with past medical history of HIV, HTN, Arthritis, Hypothyroism , BPH, HLD, and Aneurysm presents to the ER for back pain and cough. Patient states he has chronic body pain for many years but the back pain is new which started about 4-5 weeks ago. He states the pain is constant, feels like a burning pain, 10/10. The pain is made worse by laying down and nothing has made the pain better. He states the pain is more located where is lungs are but it also is located in his lower back. He states the cough started about 4- 5 weeks ago and he has phlegm which is white to a green color. He states he has not been able to take his temperature at home but feels like he has a fever for the last few weeks. He denies blood in his sputum. Patient denies sick contacts or leaving the country. Patient was recently started on INH due to a + quantiferon test after he also tested +for Rheumatoid factor. Patient also states he was recently at the ER and was discharged with Lortab for his back pain however he was not able to fill the prescription at any pharmacy as they told him they do not carry the medications. Patient denies nausea, vomiting, diarrhea, constipation, chest pain or shortness of breath." Hospital Course: Patient admitted for fever of unknown origin with his history of HIV and latent tuberculosis. Per his primary Dr. Roman, he has failed two outpatient courses of Azithromycin recently. Patient was found to have bronchopneumonia on CT imaging, and this was determined to be the likely cause of fever. It was unlikely an opportunistic infection given the patient's most recent CD4 panel and good follow up for his HIV. He was treated for it with Rocephin 1 gm daily and Doxycycline 100 mg IV Q12H since admission. Patient also had severe back pain and hand pain with associated swelling and inability to close his hands. Autoimmune workup was negative. 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 Hightower who believes that the patient likely has just osteoarthritis, and that the back pain could possibly be a manifestation of the patient's HIV. On the date of discharge, patient was noted with improvement in his ability to close his fist. Patient with lumbar disc disease and chronic atrophic right psoas muscle on MRI. This was discussed with his primary and is attributed to likely be due to the patient's physical job. Patient was discharged with a rolling walker per physical therapy recommendation. He is discharged with instructions to make an appointment with Dr. Roman and to see Dr. Hightower at his appointment on Monday. Per Dr. Roman's recommendation, patient discharged with 7 day course of Avelox 400 mg PO daily. At the time of discharge, blood cultures, urine cultures, sputum culture, and three AFB sputum cultures were negative. This is a summary of the hospital course. For more information, refer to the medical records. Discharge Exam - Additional Findings Additional findings: - Constitutional Appears: No Acute Distress - Head Exam Head Exam: ATRAUMATIC, NORMOCEPHALIC - Eye Exam Eye Exam: EOMI, Normal appearance - ENT Exam ENT Exam: Mucous Membranes Moist - Respiratory Exam Respiratory Exam: Decreased Breath Sounds, Clear to Ausculation Bilateral, NORMAL BREATHING PATTERN. absent: Rales, Rhonchi, Wheezes - Cardiovascular Exam Cardiovascular Exam: REGULAR RHYTHM, +S1, +S2 - GI/Abdominal Exam GI & Abdominal Exam: Soft, Normal Bowel Sounds. absent: Distended, Guarding, Tenderness - Extremities Exam Extremities Exam: absent: Pedal Edema, Tenderness Additional comments: Some edema of the fingers bilaterally is noted. No obvious joint deformity was palpated. - Back Exam Additional comments: Upper and lower back tenderness in a non-specific pattern both vertebral and paraspinal No obvious bony deformities palpated - Neurological Exam Neurological Exam: Alert, Awake, CN II-XII Intact, Oriented x3 - Psychiatric Exam Psychiatric exam: Anxious - Skin Skin Exam: Dry, Warm Discharge Plan - Discharge Medications Prescriptions: Dutasteride 0.5 mg PO DAILY #30 capsule Enalapril Maleate [Vasotec] 20 mg PO DAILY #30 tab Etodolac 400 mg PO BID PRN #20 tablet PRN Reason: Pain, Severe (8-10) Famotidine [Pepcid] 20 mg PO BID #30 tab Gabapentin [Neurontin] 300 mg PO TID #90 cap Isoniazid [Niazid] 300 mg PO DAILY #30 tab levETIRAcetam [Keppra] 500 mg PO BID #60 tab Levothyroxine [Synthroid] 100 mcg PO DAILY #30 tab Moxifloxacin [Avelox] 400 mg PO DAILY #7 tab Pyridoxine [Vitamin B6] 100 mg PO DAILY #30 tab Tamsulosin [Flomax] 0.4 mg PO DAILY #30 cap Topiramate [Topamax] 50 mg PO DAILY #30 tab - Follow Up Plan Condition: STABLE Disposition: HOME/ ROUTINE Instructions: Moxifloxacin (Systemic), Fever, Adult (DC), Dutasteride, Enalapril, Gabapentin, Isoniazid, Levetiracetam, Levothyroxine, Pyridoxine, Tamsulosin, Topiramate Additional Instructions: Please resume all of your home medications as they were prescribed except for your Quinapril. Instead of taking the Quinapril, please take Enalapril 20 mg once a day instead. Please take Gabapentin 300 mg three times a day to help with the pain. Please take the antibiotic Moxifloxacin 400 mg once a day for the next seven days. Please call Dr. Roman's office on Monday to set up an appointment. Please follow up with Dr. Hightower at your next scheduled appointment. If there are any new or worsening symptoms, please go to the nearest emergency room. Por favor, reinicie todos los medicamentos de [facility] ynes se prescribieron , excepto metz Quinapril. En lugar de mitul Quinapril, tome Enalapril 20 mg shiv vez al da. Por favor tome Gabapentin 300 mg richie veces al da para ayudar con el dolor. Por favor tome el antibitico Moxifloxacin 400 mg shiv vez al da sean los pr ximos siete ibarra. Por favor llame a la oficina del Dr. Roman el para programar shiv arpit. Por favor, angel un seguimiento con el Dr. Hightower en metz prxima arpit programada. Si hay sntomas nuevos o que empeoran, vaya a la faiza de emergencias ms cercana. Referrals: Chepe Hightower MD [Staff Provider] - Stanislav Roman MD [Staff Provider] - <Edith Montana V - Last Filed: 06/10/17 00:04> Provider - Provider Date of Admission: 06/04/17 18:18 Attending physician: Edith Montana DO [facility] Course - Lab Results Lab Results: Micro Results 06/07/17 15:05 Blood Blood Culture - Preliminary NO GROWTH AFTER 24 HOURS 06/06/17 08:54 Other: Please Indicate Mycobacterial Culture - Preliminary 06/07/17 13:04 Blood Blood Culture - Preliminary NO GROWTH AFTER 24 HOURS 06/07/17 13:23 Urine Urine Culture - Final No Growth (<1,000 CFU/ML) 06/06/17 20:17 Sputum Gram Stain - Final 06/06/17 20:17 Sputum Sputum Culture - Final NORMAL ORAL BENEDICT 06/06/17 06:00 Other: Please Indicate Mycobacterial Culture - Preliminary 06/05/17 05:40 Other: Please Indicate Mycobacterial Culture - Preliminary Most Recent Lab Values WBC 5.5 K/uL (4.8-10.8) 06/08/17 07:13 RBC 3.57 Mil/uL (4.40-5.90) L 06/08/17 07:13 Hgb 13.2 g/dL (12.0-18.0) 06/08/17 07:13 Hct 38.1 % (35.0-51.0) 06/08/17 07:13 MCV 106.7 fL (80.0-94.0) H 06/08/17 07:13 MCH 37.0 pg (27.0-31.0) H 06/08/17 07:13 MCHC 34.7 g/dL (33.0-37.0) 06/08/17 07:13 RDW 13.4 % (11.5-14.5) 06/08/17 07:13 Plt Count 251 K/uL (130-400) 06/08/17 07:13 MPV 9.0 fL (7.2-11.7) 06/08/17 07:13 Neut % (Auto) 54.3 % (50.0-75.0) 06/08/17 07:13 Lymph % (Auto) 33.3 % (20.0-40.0) 06/08/17 07:13 Treasure % (Auto) 8.6 % (0.0-10.0) 06/08/17 07:13 Eos % (Auto) 3.4 % (0.0-4.0) 06/08/17 07:13 Baso % (Auto) 0.4 % (0.0-2.0) 06/08/17 07:13 Neut # (Auto) 3.0 K/uL (1.8-7.0) 06/08/17 07:13 Lymph # (Auto) 1.8 K/uL (1.0-4.3) 06/08/17 07:13 Treasure # (Auto) 0.5 K/uL (0.0-0.8) 06/08/17 07:13 Eos # (Auto) 0.2 K/uL (0.0-0.7) 06/08/17 07:13 Baso # (Auto) 0.0 K/uL (0.0-0.2) 06/08/17 07:13 Differential Comment 06/08/17 07:13 ESR 55 mm/hr (0-15) H 06/08/17 07:13 Sodium 142 mmol/L (132-148) 06/08/17 07:13 Potassium 3.8 mmol/L (3.6-5.2) 06/08/17 07:13 Chloride 105 mmol/L (98-107) 06/08/17 07:13 Carbon Dioxide 21 mmol/L (22-30) L 06/08/17 07:13 Anion Gap 19 (10-20) 06/08/17 07:13 BUN 12 mg/dL (9-20) 06/08/17 07:13 Creatinine 0.6 mg/dL (0.8-1.5) L 06/08/17 07:13 Est GFR ( Amer) > 60 06/08/17 07:13 Est GFR (Non-Af Amer) > 60 06/08/17 07:13 Random Glucose 81 mg/dL (75-110) 06/08/17 07:13 Calcium 8.6 mg/dl (8.6-10.4) 06/08/17 07:13 Phosphorus 4.1 mg/dL (2.5-4.5) 06/08/17 07:13 Magnesium 1.9 mg/dL (1.6-2.3) 06/08/17 07:13 Total Bilirubin 0.4 mg/dL (0.2-1.3) 06/08/17 07:13 AST 30 U/L (17-59) 06/08/17 07:13 ALT 27 U/L (21-72) 06/08/17 07:13 Alkaline Phosphatase 83 U/L (38-126) 06/08/17 07:13 Lactate Dehydrogenase 431 U/L (313-618) 06/05/17 06:57 C-Reactive Protein 45.10 mg/L (0.0-9.9) H 06/06/17 08:11 C-React Prot High Sens > 15.00 mg/L (1.00-3.00) H 06/05/17 11:14 Total Protein 7.6 g/dL (6.3-8.3) 06/08/17 07:13 Albumin 3.9 g/dL (3.5-5.0) 06/08/17 07:13 Globulin 3.7 gm/dL (2.2-3.9) 06/08/17 07:13 Albumin/Globulin Ratio 1.1 (1.0-2.1) 06/08/17 07:13 Amylase 67 U/L (30-110) 06/05/17 11:14 Aldolase 3.4 U/L (<=8.1) 06/07/17 11:09 Vitamin B12 366 pg/mL (239-931) 06/05/17 06:57 Procalcitonin 0.09 NG/ML (0.19-0.49) L 06/05/17 08:23 Free T4 0.89 ng/dL (0.78-2.19) 06/05/17 06:57 TSH 3rd Generation 1.13 mIU/L (0.46-4.68) 06/05/17 06:57 Urine Color Straw (YELLOW) 06/07/17 13:56 Urine Clarity Clear (Clear) 06/07/17 13:56 Urine pH 7.0 (5.0-8.0) 06/07/17 13:56 Ur Specific Hughson 1.010 (1.003-1.030) 06/07/17 13:56 Urine Protein Negative mg/dL (NEGATIVE) 06/07/17 13:56 Urine Glucose (UA) Normal mg/dL (Normal) 06/07/17 13:56 Urine Ketones Negative mg/dL (NEGATIVE) 06/07/17 13:56 Urine Blood Negative (NEGATIVE) 06/07/17 13:56 Urine Nitrate Negative (NEGATIVE) 06/07/17 13:56 Urine Bilirubin Negative (NEGATIVE) 06/07/17 13:56 Urine Urobilinogen Normal mg/dL (0.2-1.0) 06/07/17 13:56 Ur Leukocyte Esterase Neg Carey/uL (Negative) 06/07/17 13:56 Urine WBC (Auto) < 1 /hpf (0-5) 06/07/17 13:56 Urine RBC (Auto) < 1 /hpf (0-3) 06/07/17 13:56 Cycl Citrul Peptide IgG <16 Units (<20) 06/05/17 11:14 RYAN Nuclear Membr Pat Negative (Negative) 06/05/17 06:57 SS-A Antibody <1.0 AI (<1.0) 06/05/17 11:14 SS-B Ab Interp Negative (Negative) 06/05/17 11:14 SS-B Antibody <1.0 AI (<1.0) 06/05/17 11:14 SS-B Ab Interp Negative (Negative) 06/05/17 11:14 OPTICAL INSTRUMENT ASSEMBLER Antibody <1.0 AI (<1.0) 06/05/17 11:14 OPTICAL INSTRUMENT ASSEMBLER Antibody Interp Negative (Negative) 06/05/17 11:14 Double Strand DNA Ab 1 IU/mL 06/05/17 11:14 Histone Antibodies <1.0 U (<1.0) 06/05/17 06:57 Hepatitis A IgM Ab Negative (NEGATIVE) 06/05/17 13:02 Hep Bs Antigen Negative (NEGATIVE) 06/05/17 13:02 Hep B Core IgM Ab Negative (NEGATIVE) 06/05/17 13:02 Hepatitis C Antibody Negative (NEGATIVE) 06/05/17 13:02 Influenza Typ A,B (EIA) Negative for flu a/b (NEGATIVE) 06/05/17 00:52 Anti-Staphylolysin O Negative (NEGATIVE) 06/05/17 11:14 Attending/Attestation - Attestation I have personally seen and examined this patient.: Yes I have fully participated in the care of the patient.: Yes I have reviewed all pertinent clinical information, including history, physical exam and plan: Yes Notes (Text): This is late computer entry for 06/08/17. Patient seen, examined and case discussed with day-time resident. Patient reports he is feeling better. He is afebrile for 48 hours. Patient's white count has normalized. Urine and blood cultures are negative thus far. Three AFB sputums are negative. Case discussed with Dr. Roman recommends for Avelox 400mg PO daily for 7 days and to call his office on Monday for a follow-up appointment and repeat chest xray. Discussed with pulmonary, no further workup at this time. Rheumatologic workup is negative. Resident has spoken with Dr. Hightower, believes hand swelling secondary to osteoarthritis and back pain may be from his HIV. Patient is medically stable for discharged. Medications reconciled with resident. This is a summary of patient's hospitalization. Please see EMR for further details of record. Assessment/Plan 1.) Fever of unknown Origin Suspected Bronchopneumonia * ID consult, Dr. Roman, help appreciated * Rheumatology consult, Dr. Hightower, help appreciated * Pulmonology consult, Dr. Borrero, help appreciated * d/c Airborne Isolation * 06/05/17 Mycobacterial culture: no acid fast bacilli X3 * 06/06/17 Sputum Culture: normal * Chest X-ray: unremarkable * Chest CT w IV contrast (06/05/17): nodular groundglass opacities in the right upper lobe with mixed groundglass and tree in bud pattern of inflammatory changes in the left lower lobe. Bronchopneumonia. 3 liver lesions ~ possible hemiangioma. Epicardial calcification likely no clinical significance for patient * CT abd/pelvis w. IV contrast (06/04/17): limited evaluation of the lung bases. Evaluation limited by respiratory motion artifact. Hazy patchy opacity in left lower lung field. Partial visualization of minimal opacity in the right middle lobe. Pleural-based masslike focus measuring up to 2cm, may represent scarring but cannot exclude true nodule. Appearance concerning for pneumonic infiltrate. Correlate clinically. F/u w dedicated imaging recommended. * Tylenol 650mg q6 prn for fever * Rocephin 1 gm IV daily (active since 06/05/17) and Doxycycline 100 mg IV Q12H ( active since 06/05/17)--->Discharged on Avelox 400mg PO daily for 7 days. * Procalcitonin: low * ESR and CRP elevated * LDH normal * Blood culture: negative * Urine culture: negative 2.)Latent tuberculosis History of Quantiferon Gold + * ID consult, Dr. Roman, help appreciated * Resumed INH 300mg PO daily (started on May 25) * Vitamin B6 100 mg PO daily for prophylaxis while on INH * anti-histone ab <1.0 * d/c Airborne Isolation * 06/05/17 Mycobacterial culture: no acid fast bacilli X3 * Chest CT w IV contrast (06/05/17): nodular groundglass opacities in the right upper lobe with mixed groundglass and tree in bud pattern of inflammatory changes in the left lower lobe. Bronchopneumonia. 3 liver lesions ~ possible hemiangioma. Epicardial calcification likely no clinical significance for patient 3.) Herniated Discs Lumbago Lumbar Nerve Impingement * Rheumatoid Factor + * ESR and CRP elevated. Procalcitonin is low. * MRI (06/06/17): interval progession of degenerative disc disease at L4-L5 with a left posterolateral disc extrusion an approximately 11mm caudal migration of extruded fragment with impingement of the transversing left L5 nerve azul. Right foraminal disc protrusion abuts right L4 nerve root. No central spinal canal stenosis. No change in broad based central disc protusion L5-S1 w mild spinal canal stenosis. further findings per report * Pending Pelvic MRI to characterize abnormality * Pelvic MRI (06/06/17): tubular septate fluid signal nonenhancing mass along the medial border of the right iliacus muscle extending at least 8.5cm, intramuscular ganglion cyst. No no enhancement following gadolinium administation. severe chronic right psoas muscle atrophy incidentally noted. * PT/OT eval * Increase Gabapentin 300mg PO TID 4.) Elevated MCV * possibly secondary to HIV medication * B12 is 366 5.) History of HIV * Infectious Disease on the case->help appreciated * CD 4 count (03/18/17): 1502 * Resume Viramune 200mg PO BID * Resume Trizivir 1 tablet BID 6.) History of BPH * Resumed Flomax .4mg po daily * Dutasteride 0.5 mg daily is not formulary--switched to Finasteride 5 mg PO daily 7.) History of Hypertension * Home med Quinapril 40 is not formulary--switched to Vasotec 20 mg PO daily 8.) History of Hypothyroid * TSH 1.13 and free T4 0.89 * Resumed home Synthroid 100 mcg daily 9) History of Arthritis * Rheumatology consult, Dr. Hightower, help appreciated * Unable to see the patient; he does not have contrast with [facility] * Rheumatoid Factor + * CCP IgG <16 * RYAN: negative * SS-A < 1.0 negative * SS-B < 1.0 negative * OPTICAL INSTRUMENT ASSEMBLER Antibody < 1.0 negative * Anti-double stranded DNA: 1 * Hand Xrays (06/05/17): * Right Hand: mild osteoarthritic changes, mild proximal and distal interphalangeal joint space narrowing.Minimal soft tissue swelling--Appears most accentuated along the proximal interphalangeal joints. * Left Hand: mild osteoarthritic changes, mild proximal and distal interphalangeal joint space narrowing.Minimal soft tissue swelling--Appears most accentuated along the proximal interphalangeal joints. * Other findings: b/l estraosseous periarticular soft tissue calcifications/ tiny ossifications in each hand the right is seen ulnar aspect 2nd digit distal interphalangeal joint. On the left 4th/5th digits, distal and proximal interphalangeal joints.. No cortical interruption. No aggresive periosteal reaction noted. No fractures noted. 10) History of Brain Aneurysm (2004) * Brain clip placed in 2004 at [facility] in [place], [place] * Topamax 50mg PO daily * Keppra 500mg PO BID 11.) Prophylaxis * SCDs * Pepcid 20mg PO BID * Lovenox 40mg subq daily
[2017-06-08 16:24] VITALS: BP 109/64; PULSE 86; RESP 20; TEMP 98.5; O2SAT 109
== END 2017-06-08 16:54 | disposition home or self-care (01) | DRG 714 ==
LOC: C.ER 13:53 → C.9E 18:18 → C.5S 19:23
PROVIDERS: ADMIT Hospitalist; ATTEND Hospitalist
DX: J18.0 Bronchopneumonia, unspecified organism (principal); B20 Human immunodeficiency virus [HIV] disease; E05.90 Thyrotoxicosis, unspecified without thyrotoxic crisis or storm; R76.11 Nonspecific reaction to tuberculin skin test without active tuberculosis; M19.90 Unspecified osteoarthritis, unspecified site; I10 Essential (primary) hypertension; N40.0 Benign prostatic hyperplasia without lower urinary tract symptoms; E03.9 Hypothyroidism, unspecified; M51.26 Other intervertebral disc displacement, lumbar region; M62.58 Muscle wasting and atrophy, not elsewhere classified, other site; K76.9 Liver disease, unspecified; R79.82 Elevated C-reactive protein (CRP); E78.00 Pure hypercholesterolemia, unspecified; Z82.49 Family history of ischemic heart disease and other diseases of the circulatory system; Z78.9 Other specified health status; G89.29 Other chronic pain; M51.36 Other intervertebral disc degeneration, lumbar region; G40.909 Epilepsy, unspecified, not intractable, without status epilepticus; K59.00 Constipation, unspecified

== ENCOUNTER 2017-06-10 10:58 | Emergency (ER) | payer OTHER ==
[2017-06-10 11:06] VITALS: BMI 31.8
[2017-06-10 11:07] VITALS: BP 122/74; PULSE 66; RESP 18; TEMP 97.8; O2SAT 98
--- NOTE | 2017-06-10 11:56 | C.PDOC ---
History Of Present Illness 57 yo male w/PMHx of HIV(CD 4 count (03/18/17): 1502), discharged from [facility] 3 days ago after was diagnosed with Bronchopneumonia, present to ED today for evaluation of " skin redness noted sine yesterday". Pt sts, started new medication given on discharge 3 days ago Moxifloxacin, Pepcid, Enalapril, Gabapentin, Pyridoxine. Otherwise, pt denies fever, chills, headache, dizziness , throat tightness or swelling, CP, SOB, wheezing, palpitation, cough, abd. pain , V/D, denies swelling, or any other new changes. Ambulate to ED for evaluation , not in any apparent distress. Time Seen by Provider: 06/10/17 11:52 Chief Complaint (Nursing): Medical Clearance History Per: Patient Past Medical History Reviewed: Historical Data, Nursing Documentation, Vital Signs Vital Signs: Last Vital Signs Temp 97.8 F 06/10/17 11:06 Pulse 66 06/10/17 11:06 Resp 18 06/10/17 11:06 BP 122/74 06/10/17 11:06 Pulse Ox 98 06/10/17 12:06 - Medical History PMH: Arthritis, Benign Prostatic Hyperplasia, HIV, HTN, Hypercholesterolemia, Hyperthyroidism, Seizures Family History: States: No Known Family Hx - Social History Hx Tobacco Use: No Hx Alcohol Use: No Hx Substance Use: No - Immunization History Hx Tetanus Toxoid Vaccination: No Hx Influenza Vaccination: No Hx Pneumococcal Vaccination: No Review Of Systems Except As Marked, All Systems Reviewed And Found Negative. Constitutional: Negative for: Fever, Chills Eyes: Negative for: Redness ENT: Negative for: Ear Discharge, Nose Discharge, Throat Pain, Throat Swelling Cardiovascular: Negative for: Chest Pain, Palpitations Respiratory: Negative for: Cough, Shortness of Breath, Wheezing Gastrointestinal: Negative for: Nausea, Vomiting, Abdominal Pain, Diarrhea Genitourinary: Negative for: Dysuria Musculoskeletal: Negative for: Neck Pain, Back Pain Skin: Positive for: Rash Neurological: Negative for: Weakness, Numbness, Altered Mental Status, Headache , Dizziness Physical Exam - Physical Exam Appears: Well, Non-toxic, No Acute Distress Skin: Normal Color, Warm, Dry, Other (localized scattered area of mild skin erythema over B/l forearm, anterior chest. no rash. no edema.) Eye(s): bilateral: PERRL Nose: No Flaring, No Discharge Oral Mucosa: Moist, No Drooling Throat: No Drooling, Other (uvula midline, no edema.) Neck: Trachea Midline, Supple Cardiovascular: Rhythm Regular, No Murmur, No JVD Respiratory: No Decreased Breath Sounds, No Accessory Muscle Use, No Stridor, No Wheezing Gastrointestinal/Abdominal: Soft, No Tenderness, No Distention, No Guarding Back: No CVA Tenderness Extremity: Normal ROM, No Deformity, No Swelling Neurological/Psych: Oriented x3, Normal Speech ED Course And Treatment O2 Sat by Pulse Oximetry: 98 Pulse Ox Interpretation: Normal Progress Note: On re-eval, pt is afebrile, hemodynamicaly stable. NOn-toxic. PulseOx 98% RA. ENT: no acute findings. uvula midline, no edema. Lungs: CTA B/ L, BS equal B/L. Abd: benign. SKin: no rash, no cellulitis. Neurologicaly intact. Records from recent admission review. Case discussed with ED attending . Pt advised to continue his new medictaion and abx along with Prednisone, benadryl and pepcid. Pt advised stop abx if any worsening of symptoms and return to ED immediately for re-eavluation. Follow upw ith PMD, ecommerce project manager in 1-2 days for re-evaluation. Pt understand and agrees with discharges. Disposition Counseled Patient/Family Regarding: Diagnosis, Need For Followup, Rx Given - Disposition Referrals: Stanislav Roman MD [Staff Provider] - Disposition: HOME/ ROUTINE Disposition Time: 12:19 Condition: STABLE Additional Instructions: Encourage fluids Continue medication as initiated and take new medication given today as prescribed STOP IMMEDIATELY ANTIBIOTIC "MOXIFLOXACIN" IMMEDIATELY IF ANY WORSENING IN SYMPTOMS- RASH, THROAT SWELLING, COUGH, WHEEZING OR ANY OTHER NEW CHANGES AND RETURN TO ED IMMEDIATELY FOR RE-EVALUATION. Follow up with PMD in 1-2 days for re-evaluation. Prescriptions: DiphenhydrAMINE [Benadryl] 25 mg PO BID #10 cap Prednisone [Deltasone] 20 mg PO DAILY #3 tablet Instructions: Adverse Drug Reactions, Adult Forms: [employer] (Anguillan) Print Language: WOLOF - Clinical Impression Clinical Impression: Medication adverse effect, Bronchopneumonia
== END 2017-06-10 12:33 | disposition home or self-care (01) ==
LOC: C.ER 10:58
DX: J18.0 Bronchopneumonia, unspecified organism (principal); T50.995A Adverse effect of other drugs, medicaments and biological substances, initial encounter; Y92.89 Other specified places as the place of occurrence of the external cause

== ENCOUNTER 2017-07-31 10:19 | Emergency (ER) | payer OTHER ==
[2017-07-31 10:19] VITALS: BMI 31.8
[2017-07-31 10:44] VITALS: BP 111/63; PULSE 81; RESP 20; TEMP 98.3; O2SAT 99
[2017-07-31] MEDS ORDERED: Naproxen 550 mg Tab PO STA (11:09)
--- NOTE | 2017-07-31 11:12 | C.PDOC ---
History Of Present Illness 57 y/o male presents to the ER complaining of right second finger pain and swelling which has been present since yesterday. Patient denies having falls, injuries, fever, and discharge. Of note, patient has history of HIV and he is compliant with HAART. Time Seen by Provider: 07/31/17 10:37 Chief Complaint (Nursing): Finger,Hand,&Wrist History Per: Patient History/Exam Limitations: no limitations Onset/Duration Of Symptoms: Days Current Symptoms Are (Timing): Still Present Past Medical History Reviewed: Historical Data, Nursing Documentation, Vital Signs Vital Signs: Last Vital Signs Temp 98.3 F 07/31/17 10:42 Pulse 81 07/31/17 10:42 Resp 20 07/31/17 10:42 BP 111/63 07/31/17 10:42 Pulse Ox 99 07/31/17 14:20 - Medical History PMH: Arthritis, Benign Prostatic Hyperplasia, HIV, HTN, Hypercholesterolemia, Hyperthyroidism, Seizures Other Surgeries: Hx of surgeries Family History: States: No Known Family Hx - Social History Hx Tobacco Use: No Hx Alcohol Use: No Hx Substance Use: No - Immunization History Hx Tetanus Toxoid Vaccination: No Hx Influenza Vaccination: No Hx Pneumococcal Vaccination: Yes Review Of Systems Except As Marked, All Systems Reviewed And Found Negative. Constitutional: Negative for: Fever, Chills Musculoskeletal: Positive for: Hand Pain (right second finger pain) Physical Exam - Physical Exam Appears: Non-toxic, No Acute Distress Skin: Normal Color, Warm, Dry Head: Atraumatic, Normacephalic Eye(s): bilateral: Normal Inspection Nose: Normal Oral Mucosa: Moist Extremity: Capillary Refill (< 2 seconds), Swelling (right distal second digit: mild swelling), Other (right distal second digit - mildy erythematous, warm to touch, (-) paronychia, (-) felon) Pulses: Right Radial: Normal Neurological/Psych: Oriented x3, Normal Speech ED Course And Treatment O2 Sat by Pulse Oximetry: 99 (RA) Pulse Ox Interpretation: Normal Progress Note: Patient treated with Clindamycin PO and Naproxen PO. Patient has been discharged with prescriptions for Clindamycin and Naproxen and instructed to follow up with PMD in 1-2 days. Disposition Counseled Patient/Family Regarding: Diagnosis, Need For Followup, Rx Given - Disposition Referrals: Stanislav Roman MD [Staff Provider] - Disposition: HOME/ ROUTINE Disposition Time: 11:10 Condition: STABLE Additional Instructions: FOLLOW UP WITH YOUR DOCTOR/CLINIC IN 1-2 DAYS USE MEDICATIONS DIRECTED RETURN TO EMERGENCY ROOM IF SYMPTOMS WORSEN SEGUIMIENTO CON PACHECO MDICO / CLNICA EN 1-2 PULIDO USE MEDICAMENTOS SEGN LO INDICADO REGRESE AL MELANIE DE EMERGENCIA SI LOS SNTOMAS EMPEORAN Prescriptions: Clindamycin [Cleocin] 300 mg PO TID #21 cap Naproxen 375 mg PO BID PRN #20 tablet PRN Reason: pain Instructions: Cellulitis (Skin Infection), Adult (DC) Forms: [employer] (Frisian) Print Language: UZBEK - Clinical Impression Clinical Impression: Cellulitis, finger - Scribe Statement The provider has reviewed the documentation as recorded by the Eleniibelke Unger Provider Attestation: All medical record entries made by the Scribe were at my direction and personally dictated by me. I have reviewed the chart and agree that the record accurately reflects my personal performance of the history, physical exam, medical decision making, and the department course for this patient. I have also personally directed, reviewed, and agree with the discharge instructions and disposition.
[2017-07-31] MEDS ORDERED: Naproxen 550 mg Tab PO ONE (11:16)
== END 2017-07-31 11:18 | disposition home or self-care (01) ==
LOC: C.ER 10:19
DX: L03.011 Cellulitis of right finger (principal)

== ENCOUNTER 2017-09-15 18:27 | Emergency (ER) | payer OTHER ==
[2017-09-15 18:30] VITALS: BMI 25.7
[2017-09-15 18:33] VITALS: BP 122/75; PULSE 68; TEMP 98.1; O2SAT 99
--- NOTE | 2017-09-15 18:49 | C.PDOC ---
Time Seen by Provider: 09/15/17 18:35 Chief Complaint (Nursing): Groin Pain Past Medical History Vital Signs: Last Vital Signs Temp 98.1 F 09/15/17 18:31 Pulse 68 09/15/17 18:31 Resp 18 09/15/17 18:31 BP 122/75 09/15/17 18:31 Pulse Ox 99 09/15/17 18:31 - Medical History PMH: Arthritis, Benign Prostatic Hyperplasia, HIV, HTN, Hypercholesterolemia, Hyperthyroidism, Seizures Family History: States: Unknown Family Hx - Social History Hx Tobacco Use: No Hx Alcohol Use: No Hx Substance Use: No - Immunization History Hx Tetanus Toxoid Vaccination: No Hx Influenza Vaccination: No Hx Pneumococcal Vaccination: Yes ED Course And Treatment O2 Sat by Pulse Oximetry: 99 Medical Decision Making Medical Decision Making: L>R mild direct inguinal hernia discomfort x 5 days after heavy lifting. no persistent defect now. mild defect with forced valsalva. motrin/ice educated. outpatient f/u. Disposition Doctor Will See Patient In The: Office Counseled Patient/Family Regarding: Studies Performed, Diagnosis - Disposition Disposition: HOME/ ROUTINE Disposition Time: 18:48 Condition: GOOD Forms: [employer] (Cuban) - Clinical Impression Clinical Impression: Left groin pain
[2017-09-15 19:08] VITALS: RESP 20
== END 2017-09-15 19:07 | disposition home or self-care (01) ==
LOC: C.ER 18:27
DX: R10.32 Left lower quadrant pain (principal)

== ENCOUNTER 2018-01-10 20:23 | Emergency (ER) | payer OTHER ==
[2018-01-10 20:23] VITALS: BMI 25.7
[2018-01-10 20:28] VITALS: BP 121/78; PULSE 76; RESP 16; TEMP 98; O2SAT 97
--- NOTE | 2018-01-10 21:36 | C.PDOC ---
History Of Present Illness Patient was non Mohawk speaker, history obtained using toll bridge operator machine with Mateo [id number]. 57 year old male with PMHx of HIV positive, arthritis, seizure presents to the ED c/o chronic burning sensation to his back. Patient's PMD is Dr. Roman who prescribed him a cream that he states is not working. Patient decided to come to the ED for evaluation. Patient denies fever, chills, nausea, vomit, weakness, numbness, saddle anesthesia, injury, fall, trauma. Time Seen by Provider: 01/10/18 20:53 Chief Complaint (Nursing): Abnormal Skin Integrity History Per: Patient History/Exam Limitations: no limitations Onset/Duration Of Symptoms: Persistent Current Symptoms Are (Timing): Still Present Location Of Injury: Right: Back, Left: Back Quality Of Symptoms: Other Recent travel outside of the [place]: No Additional History Per: Patient Past Medical History Reviewed: Historical Data, Nursing Documentation, Vital Signs Vital Signs: Last Vital Signs Temp 98.0 F 01/10/18 20:26 Pulse 76 01/10/18 20:26 Resp 16 01/10/18 20:26 BP 121/78 01/10/18 20:26 Pulse Ox 97 01/10/18 20:26 - Medical History PMH: Arthritis, Benign Prostatic Hyperplasia, HIV, HTN, Hypercholesterolemia, Hyperthyroidism, Seizures Surgical History: No Surg Hx Family History: States: Unknown Family Hx - Social History Hx Tobacco Use: No Hx Alcohol Use: No Hx Substance Use: No - Immunization History Hx Tetanus Toxoid Vaccination: No Hx Influenza Vaccination: No Hx Pneumococcal Vaccination: Yes Review Of Systems Constitutional: Negative for: Fever, Chills Cardiovascular: Negative for: Chest Pain Respiratory: Negative for: Shortness of Breath Gastrointestinal: Negative for: Nausea, Vomiting, Abdominal Pain Genitourinary: Negative for: Incontinence Musculoskeletal: Positive for: Back Pain Skin: Negative for: Rash Physical Exam - Physical Exam Appears: Non-toxic, No Acute Distress Skin: Normal Color, Warm, Dry Head: Atraumatic, Normacephalic Eye(s): bilateral: Normal Inspection Oral Mucosa: Moist Neck: Normal ROM, Supple Chest: Symmetrical Cardiovascular: Rhythm Regular Respiratory: Normal Breath Sounds, No Rales, No Rhonchi, No Wheezing Gastrointestinal/Abdominal: Soft, No Tenderness, No Guarding, No Rebound Back: No Vertebral Tenderness, No Paraspinal Tenderness Extremity: Normal ROM, No Tenderness, No Swelling Neurological/Psych: Oriented x3, Normal Speech, Normal Motor, Normal Sensation Gait: Steady ED Course And Treatment O2 Sat by Pulse Oximetry: 97 (ON RA) Pulse Ox Interpretation: Normal Progress Note: Patient was advised to follow up with Longitudinal Float Operator and Neurologist for further evaluation. Disposition - Disposition Disposition: HOME/ ROUTINE Disposition Time: 21:34 Condition: STABLE Additional Instructions: Follow up withnyour PMD and Longitudinal Float Operator withij 1-2 days. Return to Ed if feel worse. Prescriptions: Gabapentin [Neurontin] 300 mg PO QPM #301 cap Instructions: Paresthesias (DC) Forms: [employer] (Mohawk) Print Language: OCCITAN - Clinical Impression Clinical Impression: Paresthesia, Neuropathy - PA / WRAPPER COUNTER / Resident Statement MD/DO has reviewed & agrees with the documentation as recorded. - Scribe Statement The provider has reviewed the documentation as recorded by the Scribe Angel Piper All medical record entries made by the Scribe were at my direction and personally dictated by me. I have reviewed the chart and agree that the record accurately reflects my personal performance of the history, physical exam, medical decision making, and the department course for this patient. I have also personally directed, reviewed, and agree with the discharge instructions and disposition.
== END 2018-01-10 21:49 | disposition home or self-care (01) ==
LOC: C.ER 20:23
DX: R20.2 Paresthesia of skin (principal); G62.9 Polyneuropathy, unspecified

== ENCOUNTER 2018-03-16 07:13 | Outpatient (CLI) | payer OTHER | END 2018-03-16 07:14 | disposition home or self-care (01) | LOC: C.LAB 07:13 | DX: E03.9 Hypothyroidism, unspecified (principal); E78.5 Hyperlipidemia, unspecified ==

== ENCOUNTER 2018-03-19 09:38 | Emergency (ER) | payer OTHER ==
[2018-03-19 09:47] VITALS: BMI 26.6
[2018-03-19 09:50] VITALS: RESP 18; O2SAT 99
--- NOTE | 2018-03-19 11:16 | C.PDOC ---
History Of Present Illness 57 year old male with PMH of HIV, HTN, Arthritis, Hypothyroidism, Seizures presents to the emergency department with complaints of right-sided abdominal pain, right shoulder pain, and right elbow pain status-post lifting a very heavy box at work 6 days ago. 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 Most concerned about a "lump"; states his right flank/hip area is bigger than his left. Has not taken any medication for pain. Patient denies fall, nausea, vomiting, diarrhea, urinary symptoms, chest pain, SOB, back pain, neck pain, or any other associated symptoms. Time Seen by Provider: 03/19/18 10:15 Chief Complaint (Nursing): Abdominal Pain History Per: Patient History/Exam Limitations: no limitations Onset/Duration Of Symptoms: Days (6) Current Symptoms Are (Timing): Still Present Context: Other (lifting) Location Of Pain/Discomfort: RUQ, RLQ Radiation Of Pain To:: None Quality Of Discomfort: "Pain" Associated Symptoms: denies: Nausea, Vomiting, Diarrhea Past Medical History Reviewed: Historical Data, Nursing Documentation, Vital Signs Vital Signs: Last Vital Signs Temp 98 F 03/19/18 09:47 Pulse 77 03/19/18 09:47 Resp 18 03/19/18 09:47 BP 121/78 03/19/18 09:47 Pulse Ox 99 03/19/18 09:47 - Medical History PMH: Arthritis, Benign Prostatic Hyperplasia, HIV, HTN, Hypercholesterolemia, Hypothyroidism, Seizures Surgical History: No Surg Hx Family History: States: No Known Family Hx - Social History Hx Tobacco Use: No Hx Alcohol Use: No Hx Substance Use: No - Immunization History Hx Tetanus Toxoid Vaccination: No Hx Influenza Vaccination: No Hx Pneumococcal Vaccination: Yes Review Of Systems Except As Marked, All Systems Reviewed And Found Negative. Constitutional: Negative for: Fever, Chills Eyes: Negative for: Vision Change ENT: Negative for: Nose Discharge, Throat Swelling Cardiovascular: Negative for: Chest Pain, Palpitations, Light Headedness Respiratory: Negative for: Cough, Shortness of Breath Gastrointestinal: Positive for: Abdominal Pain. Negative for: Nausea, Vomiting, Diarrhea, Hematochezia, Hematemesis Genitourinary: Negative for: Dysuria, Frequency, Incontinence, Hematuria, Penile Discharge, Scrotal Pain Musculoskeletal: Positive for: Shoulder Pain (right), Arm Pain (right elbow). Negative for: Neck Pain, Back Pain Skin: Negative for: Rash, Bruising Neurological: Negative for: Weakness, Numbness, Headache, Dizziness Physical Exam - Physical Exam Appears: Non-toxic, No Acute Distress Skin: Normal Color, Warm, Dry Head: Atraumatic, Normacephalic Eye(s): bilateral: Normal Inspection, PERRL, EOMI Nose: Normal Oral Mucosa: Moist Throat: Normal Neck: Normal, Normal ROM, Supple Chest: Symmetrical, No Tenderness Cardiovascular: Rhythm Regular, No Murmur Respiratory: Normal Breath Sounds, No Rales, No Rhonchi, No Wheezing Gastrointestinal/Abdominal: Normal Exam, Bowel Sounds (normoactive), Soft, Tenderness (RUQ+RLQ abdominal tenderness), No Mass, No Distention, No Guarding, No Rebound, Other (mild asymmetry in fat distribution to flanks, Right side slightly larger than left side when standing) Back: Normal Inspection, No CVA Tenderness Extremity: No Normal ROM (limited ROM secondary to pain at the right shoulder and right elbow), Tenderness (to the right shoulder), Capillary Refill (<2s), No Swelling, Other (neurovascularly intact bilaterally, full strength and sensation, normal pulses) Extremity: Bilateral: Atraumatic, No Pedal Edema, Normal Color And Temperature, Normal ROM Pulses: Left Radial: Normal, Right Radial: Normal Neurological/Psych: Oriented x3, Normal Speech, Normal Cognition, Normal Motor, Normal Sensation Gait: Steady ED Course And Treatment - Laboratory Results Result Diagrams: 03/19/18 11:31 03/19/18 11:31 O2 Sat by Pulse Oximetry: 99 (RA) Pulse Ox Interpretation: Normal - Other Rad XR Right Shoulder X-Ray: Viewed By Me, Read By Radiologist Interpretation: MPRESSION: No evidence of acute displaced fracture nor dislocation. Findings consistent with calcified tendinitis. There also cortical clavicular calcifications and small curvilinear calcification in the soft tissues adjacent to the superior margin of the right AC joint. XR Right Elbow X-Ray: Viewed By Me, Read By Radiologist Interpretation: IMPRESSION: Thin curvilinear calcification is noted adjacent to the lateral epicondyle, possibly related to lateral epicondylitis. No acute displaced fracture, dislocation, or significant joint effusion identified.If symptoms persist, or if there is continued clinical concern, x-ray follow-up in 7-10 days should be considered. - CT Scan/US CT Abdomen Other Rad Studies (CT/US): Read By Radiologist, Radiology Report Reviewed CT/US Interpretation: IMPRESSION: No acute findings identified. Hepatic hypodensities re-identified measuring up to 12 mm, incompletely characterized on this study. Additional incidental findings as above. Medical Decision Making Medical Decision Making: Initial Plan: * CBC, CMP * Lipase * Right Shoulder XR * Right Elbow XR * CT Abd/Pelvis * IVF * Toradol On initial exam, patient is very well appearing and in no acute distress. Patient is most worried about subjective "lump" on his right side, states abdominal pain is only with movement. Bloodwork per baseline Urinalysis per baseline Xrays show no acute fracture or dislocation. Elbow suggestive of epicondylitis. Shoulder suggestive of calcified tendinitis CT negative for any acute pathology Patient reports resolution of pain after medications. Patient put in right arm sling and advised to followup with GI and orthopedics. Case discussed at length with Dr. Sams, who agrees with plan of care and disposition. Diagnostic testing results and plan of care discussed with patient. Strict instructions given regarding prescription use, importance of followup, and signs/symptoms to return to ER including worsening abdominal pain, N/V, fevers, chills, chest pain, shortness of breath, or any other new/worsening symptoms. Pt verbalized understanding of discussion. Patient is A&Ox3, ambulating with steady gait, with vital signs stable for discharge. Disposition - Disposition Referrals: [facility] [Outside] Ion Estrada MD [Staff Provider] - Brian Shah MD [Staff Provider] - Disposition: HOME/ ROUTINE Disposition Time: 14:30 Condition: IMPROVED Additional Instructions: No strenuous activity Ibuprofen/Tylenol for pain Followup with GI within 2 days Followupw with ortho within 2 days Followup with primary doctor within 2 days Return to ER with any new/worsening symptoms Prescriptions: Naproxen [Naprosyn] 500 mg PO DAILY PRN #14 tablet PRN Reason: Pain, Moderate (4-7) Instructions: Muscle Strain, Acute Abdomen (Belly Pain), Child (DC) Forms: [employer] (North Korean), Work Excuse - Clinical Impression Clinical Impression: Epicondylitis, Muscle strain, Calcifying tendinitis of shoulder, Abdominal discomfort - PA / STYLIST APPRENTICE / Resident Statement MD/DO has reviewed & agrees with the documentation as recorded. - Scribe Statement The provider has reviewed the documentation as recorded by the Scribe (Abhishek Cooper) All medical record entries made by the Scribe were at my direction and personally dictated by me. I have reviewed the chart and agree that the record accurately reflects my personal performance of the history, physical exam, medical decision making, and the department course for this patient. I have also personally directed, reviewed, and agree with the discharge instructions and disposition.
[2018-03-19 11:40] LABS: EOS % 1.2 % (0.0-4.0); HEMOGLOBIN 14.5 g/dL (12.0-18.0); LYMPH % 29.7 % (20.0-40.0); MEAN CORPUSCULAR HEMOGLOBIN 36.7 pg (27.0-31.0); MEAN CORPUSCULAR HGB CONC 35.1 g/dL (33.0-37.0); MEAN PLATELET VOLUME 10.1 fL (7.2-11.7); MONO % 6.7 % (0.0-10.0); NEUT % 61.9 % (50.0-75.0); RBC 3.94 Mil/uL (4.40-5.90); RED CELL DISTRIBUTION WIDTH 14.1 % (11.5-14.5)
[2018-03-19 11:41] LABS: BASO % 0.5 % (0.0-2.0); EOS # 0.1 K/uL (0.0-0.7); LYMPH # 2.3 K/uL (1.0-4.3); MONO # 0.5 K/uL (0.0-0.8); NEUT # 4.9 K/uL (1.8-7.0); NRBC % 0.1 % (0.0-2.0)
[2018-03-19 11:44] LABS: INR 1.1; PROTHROMBIN TIME 11.9 SECONDS (9.7-12.2)
[2018-03-19 11:50] LABS: MEAN CELL VOLUME 104.5 fL (80.0-94.0); WHITE BLOOD COUNT 7.9 K/uL (4.8-10.8)
[2018-03-19 12:07] LABS: ALB/GLOB RATIO 1.5 (1.0-2.1); ALBUMIN 4.4 g/dL (3.5-5.0); ALT/SGPT 39 U/L (21-72); AST/SGOT 41 U/L (17-59); BLOOD UREA NITROGEN 27 mg/dL (9-20); CALCIUM 9.2 mg/dl (8.6-10.4); GFR NON-AFRICAN AMERICAN > 60; LIPASE 62 U/L (23-300)
[2018-03-19 12:11] LABS: URINE BACTERIA RARE (<OCC); URINE BILIRUBIN NEGATIVE (NEGATIVE); URINE BLOOD NEGATIVE (NEGATIVE); URINE CLARITY Hazy (Clear); URINE GLUCOSE (UA) NORMAL (Normal); URINE LEUKOCYTE ESTERASE NEG Leu/uL (Negative); URINE PROTEIN NEGATIVE (NEGATIVE); URINE UROBILINOGEN NORMAL mg/dL (0.2-1.0)
[2018-03-19 12:13] LABS: URINE COLOR YELLOW (YELLOW)
--- NOTE | 2018-03-19 12:27 | RAD ---
Date of service: 03/19/2018 PROCEDURE: Radiographs of the Right Shoulder HISTORY: trauma, pain on ROM COMPARISON: No prior. FINDINGS: BONES: No definitive evidence of acute displaced fracture nor dislocation. The osseous structures appear grossly intact. 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 There also calcifications seen within the soft tissues adjacent to the greater tuberosity consistent with calcific tendinitis. There also curvilinear calcification changes seen as well as within the soft tissues along superior margin of the AC joint.. Apparent calcification of the cortical clavicular ligament as well. JOINTS: As above osteoarthritis. SOFT TISSUES: Normal. OTHER FINDINGS: None. IMPRESSION: No evidence of acute displaced fracture nor dislocation. Findings consistent with calcified tendinitis. There also cortical clavicular calcifications and small curvilinear calcification in the soft tissues adjacent to the superior margin of the right AC joint.
[2018-03-19] MEDS ORDERED: Iodixanol 320 MG/ML 100 ML BOTTLE IV ONE (12:45)
--- NOTE | 2018-03-19 13:22 | RAD ---
PROCEDURE: Radiographs of the right elbow. HISTORY: trauma, pain on ROM COMPARISON: No prior. FINDINGS: BONES: Thin curvilinear 5 mm probable calcification adjacent to the lateral epicondyle. No acute displaced fracture. JOINTS: No dislocation. SOFT TISSUES: Unremarkable. No evidence of radiopaque foreign body. JOINT EFFUSION: No significant joint effusion. OTHER FINDINGS: None IMPRESSION: Thin curvilinear calcification is noted adjacent to the lateral epicondyle, possibly related to lateral epicondylitis. No acute displaced fracture, dislocation, or significant joint effusion identified.If symptoms persist, or if there is continued clinical concern, x-ray follow-up in 7-10 days should be considered.
--- NOTE | 2018-03-19 13:42 | CT ---
Date of service: 03/19/2018 PROCEDURE: CT Abdomen and Pelvis with contrast HISTORY: right sided abd pain COMPARISON: CT abdomen and pelvis with contrast performed 06/04/17 TECHNIQUE: Contrast dose: 100 mL Visipaque IV Radiation dose: Total exam DLP = 434.98 mGy-cm. This CT exam was performed using one or more of the following dose reduction techniques: Automated exposure control, adjustment of the mA and/or kV according to patient size, and/or use of iterative reconstruction technique. FINDINGS: LOWER THORAX: No visible consolidation, pleural effusion, or pneumothorax. Nonspecific 4 mm calcification at the heart border/lingula. LIVER: Hepatic hypodensities re-identified measuring up to 12 mm, incompletely characterized on this study. GALLBLADDER AND BILE DUCTS: Unremarkable. PANCREAS: Unremarkable. SPLEEN: Unremarkable. ADRENALS: Unremarkable. KIDNEYS AND URETERS: The kidneys enhance symmetrically. No hydronephrosis or obstructing calculus identified. Too small to characterize left renal hypodensity; statistically likely cyst. VASCULATURE: No aortic aneurysm. No atherosclerotic calcification or mural plaque present. BOWEL: Stomach is nondistended. Lack of oral contrast limits evaluation for bowel pathology. Bowel loops appear within normal limits of caliber without evidence of obstruction. APPENDIX: The appendix appears within normal limits of caliber. No secondary signs of acute appendicitis. PERITONEUM: No significant free fluid. No definite free air. LYMPH NODES: No bulky adenopathy identified. BLADDER: Unremarkable. REPRODUCTIVE: Unremarkable. BONES: No acute osseous abnormality is detected. OTHER FINDINGS: None. IMPRESSION: No acute findings identified. Hepatic hypodensities re-identified measuring up to 12 mm, incompletely characterized on this study. Additional incidental findings as above.
[2018-03-19 15:50] VITALS: BP 118/73; PULSE 85; TEMP 98.7
== END 2018-03-19 15:49 | disposition home or self-care (01) ==
LOC: C.ER 09:38
DX: R10.11 Right upper quadrant pain (principal); M75.31 Calcific tendinitis of right shoulder; M77.11 Lateral epicondylitis, right elbow; S46.911A Strain of unspecified muscle, fascia and tendon at shoulder and upper arm level, right arm, initial encounter; X50.0XXA Overexertion from strenuous movement or load, initial encounter; Y92.89 Other specified places as the place of occurrence of the external cause; Y99.0 Civilian activity done for income or pay
CPT/HCPCS: 73030; 73080; 74177; 80053; 81001; 83690; 85025; 85610; 85730; 99284; Q9967

== ENCOUNTER 2018-04-20 12:15 | Emergency (ER) | payer OTHER ==
[2018-04-20 12:15] VITALS: BMI 26.6
[2018-04-20 12:33] VITALS: BP 110/70; PULSE 88; RESP 16; TEMP 97.9; O2SAT 96
[2018-04-20] MEDS ORDERED: cefTRIAXone (Rocephin) 250 mg Inj IM STA (13:06)
[2018-04-20] MEDS ORDERED: Penicillin G Benzathine 2.4 Mill Unit/4 ml Syr IM ONE ×2 (13:08→14:09)
--- NOTE | 2018-04-20 13:47 | C.PDOC ---
History Of Present Illness 57 year old male, whose past medical history includes HIV, HTN and DM, presents to the ED for evaluation of a red, raised lesion to the left side of his penis which he noticed around 4 days ago. Patient admits to being sexually active with multiple partners, and states he generally uses protection. Patient states he has been compliant with his HIV medications. He has been applying bacitracin to the site without improvement. Patient denies fever, chills, dysuria, or pain, itching/burning sensation to the area. Time Seen by Provider: 04/20/18 12:32 Chief Complaint (Nursing): Male Genitourinary History Per: Patient History/Exam Limitations: no limitations Onset/Duration Of Symptoms: Days (4) Current Symptoms Are (Timing): Still Present Quality Of Discomfort: denies: Burning, "Pain" Associated Symptoms: denies: Fever, Chills, Urinary Symptoms Additional History Per: Patient Past Medical History Reviewed: Historical Data, Nursing Documentation, Vital Signs Vital Signs: Last Vital Signs Temp 97.9 F 04/20/18 12:29 Pulse 88 04/20/18 12:29 Resp 16 04/20/18 12:29 BP 110/70 04/20/18 12:29 Pulse Ox 96 04/20/18 12:29 - Medical History PMH: Arthritis, Benign Prostatic Hyperplasia, HIV, HTN, Hypercholesterolemia, Hyperthyroidism, Hypothyroidism, Seizures Surgical History: No Surg Hx Family History: States: Unknown Family Hx - Social History Hx Tobacco Use: No Hx Alcohol Use: No Hx Substance Use: No - Immunization History Hx Tetanus Toxoid Vaccination: No Hx Influenza Vaccination: No Hx Pneumococcal Vaccination: Yes Review Of Systems Constitutional: Negative for: Fever, Chills Genitourinary: Negative for: Dysuria, Penile Pain Skin: Positive for: Other (red, raised lesion to left side of penis. no itching or burning ) Physical Exam - Physical Exam Appears: Well, Non-toxic, No Acute Distress Skin: Normal Color, Warm, Dry Oral Mucosa: Moist Neck: Supple Lymphatic: No Other (groin lymphadenopathy) Gastrointestinal/Abdominal: Soft, No Tenderness, No Guarding, No Rebound Male Genital: No Testicular Tenderness, No Testicular Swelling, Other (patchy, erythematous area to the left of the penis (under foreskin) with some small punctate lesions that could be considered vesicular. No bleeding or discharge noted from penis. ) Extremity: Normal ROM, Capillary Refill (less than 2 seconds ) Neurological/Psych: Oriented x3, Normal Speech, Normal Cognition ED Course And Treatment O2 Sat by Pulse Oximetry: 96 (on RA) Pulse Ox Interpretation: Normal Medical Decision Making Medical Decision Making: Progress: Case discussed with Dr. Roman (Infectious Disease) who is familiar with the patient. Recommends orders for STD, herpes and syphilis. Patient is advised to instruct patient to f/u with him in office next week. Acyclovir PO, Zithromax PO, Rocephin IM, and Penicillin IM given. Disposition Counseled Patient/Family Regarding: Need For Followup, Rx Given - Disposition Referrals: Stanislav Roman MD [Staff Provider] - Disposition: HOME/ ROUTINE Disposition Time: 13:45 Condition: STABLE Prescriptions: Acyclovir [Zovirax] 200 mg PO 5XD #50 tablet Forms: Gen Discharge Inst Stateless, General Discharge Instructions, Work Excuse - POA Present On Arrival: None - Clinical Impression Clinical Impression: Skin lesion - Scribe Statement The provider has reviewed the documentation as recorded by the Scribe (Michelle Macedo) Provider Attestation: All medical record entries made by the Scribe were at my direction and personally dictated by me. I have reviewed the chart and agree that the record accurately reflects my personal performance of the history, physical exam, medical decision making, and the department course for this patient. I have also personally directed, reviewed, and agree with the discharge instructions and disposition.
== END 2018-04-20 14:18 | disposition home or self-care (01) ==
LOC: C.ER 12:15
DX: L98.9 Disorder of the skin and subcutaneous tissue, unspecified (principal); E78.00 Pure hypercholesterolemia, unspecified; I10 Essential (primary) hypertension; E11.9 Type 2 diabetes mellitus without complications
CPT/HCPCS: 96372; 99284; J0561; J0696; J8499

== ENCOUNTER 2018-05-15 07:27 | Outpatient (CLI) | payer OTHER | END 2018-05-15 07:28 | disposition home or self-care (01) | LOC: C.LAB 07:27 | DX: B20 Human immunodeficiency virus [HIV] disease (principal) ==

== ENCOUNTER 2018-07-20 10:21 | Outpatient (CLI) | payer OTHER | END 2018-07-20 10:22 | disposition home or self-care (01) | LOC: C.RADIC 10:21 ==